=== PATIENT | male | born 1975 | race Caucasian/White ===

== ENCOUNTER 2019-04-15 21:11 | Emergency (ER) | payer MEDICARE, MEDICAID, SELFPAY ==
[2019-04-15 21:13] VITALS: BP 144/95; PULSE 76; RESP 16; TEMP 36.3; O2SAT 98
--- NOTE | 2019-04-15 21:30 | ED.GENADUL_ITS ---
Discharge Plan Disposition Patient Disposition: HOME Condition: Fair Discharge Details Chief Complaint: EyeProblem Clinical Impression: Visual loss, right eye Primary Care Provider: Michaela Herring ED Provider: Scot Will Home Meds and New Rx's Prescriptions: No Action No Known Home Meds RF: 0 Discharge Instructions Additional Instructions: You have an appointment at [facility] tomorrow afternoon at 1:30 with ophthalmology. The clinic is in the [facility] in [place]. It is in the area designated for . If you cannot keep this appointment please call them at to reschedule. Return to ED for any new neurologic changes, eye pain, other concerns or problems. Referrals: [facility] [Provider Group] Medical Decision Making Patient presenting with right vision change. He does appear to have vision loss laterally and inferiorly. Left eye is completely normal. Pupils are equal r ound and reactive bilaterally. Ophthalmoscope exam of the left retina is normal. Right retina has upper portion very abnormal with the medial aspect being completely black and the lateral aspect being moran. The inferior retina appears normal. Suspect retinal detachment. Call placed to ophthalmology at [facility] to discuss. Probably does not need emergent referral but will need urgent referral as outpatient. Patient discussed with ophthalmology at [facility], Dr. Parkinson. Patient referred to the ophthalmology clinic for appointment at 1:30 in the afternoon tomorrow. Discussed this with patient and significant other. They will try to make arrangements to get there. I have have instructed them to call the clinic in the morning if they are unable to get there to reschedule. Return to ED for any new neurologic changes, eye pain, further visual disturbance. HPI General Mode of arrival: ambulatory . Date/Time Provider Initiated Documentation: 04/15/19 21:29 . Limitations to Documentation: no limitations . Information obtained by: patient . HPI Narrative: Patient presents to ED with complaint of loss of vision in the right eye for 1 to 2 weeks. He cannot pinpoint an exact time as to what happened. He has no pain in the eye. He denies any trauma to the eye. He denies any issues with the left eye. He denies any headache or other neurologic symptoms. He does wear glasses but did not bring them with him tonight. He is unclear as to why he waited for a length of time he did before presentation. Related Data Home Medications Medication Instructions Recorded Confirmed Unknown [No Known Home Meds] 04/15/19 04/15/19 Allergies Allergy/AdvReac Type Severity Reaction Status Date / Time Penicillins Allergy unkown Unverified 04/15/19 21:18 General Stated Complaint: EyeProblem FARIBA: 4 Review of Systems Constitutional Denies headache(s) Eyes Reports change in vision, Reports loss of vision, Denies eye pain and Denies photophobia ENT Denies headache(s) Gastrointestinal Denies nausea and Denies vomiting Musculoskeletal Denies abnormal gait Neurologic Denies abnormal movements, Denies abnormal speech, Denies abnormal gait, Denies headache(s), Denies focal weakness, Reports loss of vision and Denies sensory deficit [facility] Social History Smoking/Tobacco Use Status: Current every day Tobacco Type: cigarettes Alcohol Intake: current Alcohol Intake frequency: a few times a month Drug use: Occasionally Substance use type: marijuana Do you feel safe at home: Yes Do you feel safe in your relationship?: Yes Exam Const General: cooperative, comfortable and no acute distress Orientation: alert and oriented x3 HENOH Head: normocephalic and atraumatic Face and sinus: normal facial exam Eyes Visual [place]: abnormal by confrontation peripheral vision loss, lower outer visual field cut right and lower inner visual field cut right Periorbital: periorbital findings normal Eyelids: eyelids normal Conjunctivae: conjunctivae normal Sclera: sclerae normal Pupils: PERRL EOM: EOM intact bilaterally Direct ophthalmoscopy: retinal abnormality (upper retina is moran laterally; black medially; normal lower retina) on the right Neuro General: alert, oriented x3, gait normal, moves all extremities and no focal motor deficits Speech: speech normal Sensory Exam: no sensory deficits noted Course Vital Signs Temperature 97.3 F L 04/15/19 21:13 Pulse 76 04/15/19 21:13 Respiratory Rate 16 04/15/19 21:13 Blood Pressure 144/95 H 04/15/19 21:13 Pulse Oximetry 98 04/15/19 21:13 Temperature 97.3 F L 04/15/19 21:13 Temperature Source Skin 04/15/19 21:13 Pulse 76 04/15/19 21:13 Respiratory Rate 16 04/15/19 21:13 Respiratory Effort Non-Labored 04/15/19 21:16 Blood Pressure 144/95 H 04/15/19 21:13 Blood Pressure Position Sitting 04/15/19 21:13 Pulse Oximetry 98 04/15/19 21:13 Oxygen Delivery Method Room Air 04/15/19 21:13 Oxygen Flow Rate 0 04/15/19 21:13 Pain Level 8 04/15/19 21:13
[2019-04-15 22:36] VITALS: BP 144/95; PULSE 76; RESP 16; TEMP 36.3; O2SAT 98
== END 2019-04-15 22:35 | disposition home or self-care (01) ==
PROVIDERS: Emergency Provider Emergency Medicine; PCP Nurse Practitioner Family
DX: H54.61 Unqualified visual loss, right eye, normal vision left eye (principal)
CPT/HCPCS: 99282

== ENCOUNTER 2020-05-06 13:14 | Emergency (ER) | payer MEDICARE, MEDICAID, SELFPAY ==
[2020-05-06 13:23] VITALS: BP 144/103; PULSE 98; RESP 20; TEMP 36.9; O2SAT 99
--- NOTE | 2020-05-06 13:46 | ED.GENADUL_ITS ---
Discharge Plan Disposition Patient Disposition: HOME Condition: Stable Discharge Details Chief Complaint: Orthopedic Clinical Impression: Finger sprain, Cat bite Primary Care Provider: Michaela Herring ED Provider: Yan Ardon Home Meds and New Rx's Prescriptions: New doxycycline hyclate 100 mg capsule 100 mg PO BID 10 Days Qty: 20 RF: 0 Discharge Instructions Instructions: Animal Bite (ED), Finger Sprain (ED) Additional Instructions: Wear tanesha taping and use splint as needed, advance activity as tolerated. Rest, elevate, cool compresses every 2 hours for 20 minutes. [id number] Tylenol and/or Motrin as directed for discomfort. Doxycycline as directed. Wa rm compresses to your knee every 2 hours for 20 minutes. Please watch for new or worsening symptoms and return to the ER for any concerns. I have given you a referral to orthopedics, I recommend contacting their office later today or tomorrow for prompt outpatient reevaluation. Referrals: Skyler Lopez MD [ [facility] STAFF PHYSICIAN] - Discharge Data Discharge Date/Time-TO BE ENTERED AT DEPARTURE: 05/06/20 15:27 Medical Decision Making 44-year-old gentleman presents for right hand pain status post fall and a potential wound infection from his left knee. Will obtain x-ray of the right hand to rule any bony involvement. There does not appear to be any obvious signs of infection, deformity, tenosynovitis, etc. Also reports potential infection to his left knee. Initially tells me that he believes it was from a cat bite but injury could be secondary to a scratch or even from the fall. Proper animal bite forms were filled out. The wound appears to have mild localized cellulitis. He has a penicillin allergy, will initiate doxycycline therapy. X-ray of right hand read by me and confirmed by radiology as negative. Discussed x-ray findings with patient. Fourth and fifth fingers were tanesha taped and a volar AlumaFoam splint applied. Patient was also given referral to orthopedics for outpatient reevaluation. He will call them tomorrow. Patient has no additional questions or concerns. Of note, patient's triage note stated swelling to the left calf however he denies this to me. Calf is unremarkable. Without erythema, swelling, tenderness. Negative Homans sign. HPI General Mode of arrival: ambulatory . Date/Time Provider Initiated Documentation: 05/06/20 13:30 . Limitations to Documentation: no limitations . Information obtained by: patient . HPI Narrative: This is a 44-year-old gentleman who denies significant past medical history. He reports that 1 week ago he tripped over a cat and injured his right hand. He is right-hand dominant. Pain is mild at rest, worse with movement. Denies any other injury, striking his head, numbness, tingling, weakness. He also reports that his girlfriend's cat, who is staying at his apartment, bit his left knee roughly 1 week ago. The area is slightly red and tender now. He reports that the calves are healthy but he is unsure of their immunizations record. He does not believe that his tetanus is up-to-date. He denies fever, spreading redness. Related Data Home Medications Medication Instructions Recorded Confirmed doxycycline hyclate 100 mg PO BID 10 Days #20 cap 05/06/20 Previous Rx's Medication Instructions Recorded doxycycline hyclate 100 mg PO BID 10 Days #20 cap 05/06/20 Allergies Allergy/AdvReac Type Severity Reaction Status Date / Time Penicillins Allergy unkown Unverified 05/06/20 13:29 General Stated Complaint: Orthopedic FARIBA: 3 Review of Systems Constitutional Constitutional: Denies fever(s) Cardiovascular Cardiovascular: Denies chest pain and Denies dyspnea Respiratory Respiratory: Denies cough and Denies dyspnea Musculoskeletal Musculoskeletal: Denies numbness and Denies tingling Integumentary/Breasts Skin/Breast: Reports erythema Neurologic Neurologic: Denies numbness and Denies tingling [facility] Social History Smoking/Tobacco Use Status: Current every day Tobacco Type: cigarettes Alcohol Intake: current Alcohol Intake frequency: a few times a month Drug use: Daily Substance use type: marijuana Do you feel safe at home: Yes Do you feel safe in your relationship?: Yes Exam Const General: cooperative, healthy appearing, comfortable and no acute distress Orientation: alert, awake and oriented x3 HENMT Head: normal to inspection, normocephalic and atraumatic Mouth: moist mucous membranes Eyes Conjunctivae: conjunctivae normal Sclera: sclerae normal Neck Neck: normal visual inspection, full ROM, trachea midline and supple Resp Effort & Inspection: normal respiratory effort and able to speak in complete sentences Cardio Rate: regular rate Rhythm: regular rhythm Skin Lesions: no lesions Neuro General: patient alert, patient awake, moves all extremities and no focal motor deficits Gait: normal gait Motor: muscle tone normal throughout and strength 5/5 throughout Sensory Exam: no sensory deficits noted Extrem Hand/finger images: 1. Mild swelling, ecchymosis, and tenderness. Patient prefers to keep his finger in flexion, he is able to almost extend fully but appears to be slightly limited secondary to discomfort. Normal capillary refill. There is no erythema or warmth. No deformity. Knee images: 1. Abrasions, healing wound. No laceration or obvious puncture wound. There is mild localized erythema, warmth, mild discomfort. No induration, fluctuance, drainage or pointing abscess. Neuro, vascular, tendon intact Psych Appearance: grossly normal Mental Status: mental status grossly normal Course Vital Signs Vital signs: Vital Signs Temperature 36.9 C 05/06/20 13:23 Pulse 98 H 05/06/20 13:23 Respiratory Rate 05/06/20 13:23 Blood Pressure 144/103 H 05/06/20 13:23 Pulse Oximetry 99 05/06/20 13:23 Temperature 36.9 C 05/06/20 13:23 Temperature Source Temporal Artery Scan 05/06/20 13:23 Pulse 98 H 05/06/20 13:23 Respiratory Rate 20 05/06/20 13:23 Respiratory Effort Non-Labored 05/06/20 13:28 Blood Pressure 144/103 H 05/06/20 13:23 Blood Pressure Position Sitting 05/06/20 13:23 Pulse Oximetry 99 05/06/20 13:23 Oxygen Delivery Method Room Air 05/06/20 13:23 Oxygen Flow Rate 0 05/06/20 13:23
--- NOTE | 2020-05-06 14:02 | DI.RAD_ITS ---
EXAM: XR HAND RT COMPLETE CLINICAL HISTORY: fall/pain. TECHNIQUE: 2D digital imaging was performed. COMPARISON: No exams were available for comparison FINDINGS: BONES: No acute fracture is present. No bony destructive lesion is seen. JOINTS: No dislocation present. SOFT TISSUE: Normal. IMPRESSION: Unremarkable radiographs of the right hand. DATA REPOSITORY: RADIATION DOSE DELIVERED:
--- NOTE | 2020-05-07 09:36 | NUR.NOTE ---
Nursing Note: Spoke with [facility] Officer, Arvin Hunt. He is aware of the report. The Animal Bite Report form was faxed to [facility], his place of work. Briseida Singh
== END 2020-05-06 15:27 | disposition home or self-care (01) ==
PROVIDERS: Emergency Provider Physician Assistant; PCP Nurse Practitioner Family
DX: S63.616A Unspecified sprain of right little finger, initial encounter (principal); W01.0XXA Fall on same level from slipping, tripping and stumbling without subsequent striking against object, initial encounter; S80.212A Abrasion, left knee, initial encounter; W55.01XA Bitten by cat, initial encounter
CPT/HCPCS: 29130; 90471; 99284; 73130

== ENCOUNTER 2020-11-16 08:24 | Outpatient (REF) | payer MEDICARE, MEDICAID, SELFPAY ==
[2020-11-16 16:14] LABS: ALT 64 U/L (16-63); AST 31 U/L (15-37); Albumin 3.8 g/dL (3.4-5.0); Alkaline Phosphatase 80 U/L (46-116); Anion Gap 9.2 mmol/L (3-11); BUN 16 mg/dL (7-18); Bilirubin, Total 0.3 mg/dL (0.2-1.0); CO2 26.8 mmol/L (21.0-32.0); CREATININE 0.9 mg/dL (0.70-1.30); Calcium 9.3 mg/dL (8.5-10.1); Calculated LDL 153 mg/dL (<100); Chloride 105 mmol/L (98-107); Cholesterol 230 mg/dL (<200); Glucose 117 mg/dL (74-106); HDL Cholesterol 39 mg/dL (40-60); Potassium 4.5 mmol/L (3.5-5.1); Sodium 141 mmol/L (136-145); Total Protein 7.1 g/dL (6.4-8.2); Triglyceride 190 mg/dL (<150)
== END 2020-11-16 08:25 | disposition home or self-care (01) ==
LOC: NCHCN 08:24
PROVIDERS: PCP Nurse Practitioner Family; Visit Provider Nurse Practitioner Family
DX: E78.89 Other lipoprotein metabolism disorders (principal); R79.89 Other specified abnormal findings of blood chemistry
CPT/HCPCS: 80053; 80061

== ENCOUNTER 2021-07-26 12:42 | Outpatient (REF) | payer MEDICARE, MEDICAID, SELFPAY ==
[2021-07-29 11:10] LABS: COVID-19 RT-PCR UVMMC Result Negative (Negative)
== END 2021-07-26 12:43 | disposition home or self-care (01) ==
LOC: LBN 12:42
PROVIDERS: PCP Nurse Practitioner Family; Visit Provider Physician Assistant Medical
DX: Z20.822 Contact with and (suspected) exposure to COVID-19 (principal)
CPT/HCPCS: U0003

== ENCOUNTER 2022-09-16 15:26 | Observation (INO) | payer MEDICARE, MEDICAID, SELFPAY ==
[2022-09-16] VITALS (8 sets, daily range): BP systolic 124–146; BP diastolic 59–88; PULSE 79–91; RESP 14–19; TEMP 37.1; O2SAT 95–98
--- NOTE | 2022-09-16 15:45 | DI.CT_ITS ---
Exam(s) CT ABDOMEN PELVIS W EXAM: CT ABDOMEN PELVIS W CLINICAL HISTORY: RLQ pain TECHNIQUE: Imaging Protocol: Axial computed tomography images with coronal and sagittal reformatted images were created and reviewed CONTRAST MATERIAL: Intravenous: Omnipaque 350 Contrast volume:100 mL Oral: No COMPARISON: No exams were available for comparison FINDINGS: The examination is limited due to patient motion artifact. ABDOMEN: Lung Bases: Normal where visualized. Liver: The dome of the liver was not included on this examination. No measurable mass. Portal, Superior Mesenteric, and Splenic Veins: Unremarkable. Gallbladder and Biliary Tract: No radiodense calculus or dilation. Pancreas: Normal density, no abnormal calcifications or inflammatory process. Spleen: Normal. Adrenals: No masses seen. Kidneys: Normal size, contour and axis. No radiodense stones or obstructive uropathy. No masses seen. Abdominal Aorta: Abdominal portion non-dilated. Atherosclerosis is present. Bowel: No obstruction or bowel wall thickening. There diverticula in the colon but no evidence of acu te diverticulitis. Delete the appendix is difficult to distinguish due to the multiple small bowel l oops in the right lower quadrant. No inflammatory process is seen in the right lower quadrant to sug gest an acute process. Peritoneal Cavity: No ascites, collection or mesenteric inflammatory response. No free air. Lymph Nodes: Within normal limits. Bones: Within normal limits for the patient's age. Soft Tissues: Unremarkable. PELVIS: Bladder: Symmetric distention, no gross wall thickening. Reproductive Organs: Unremarkable as visualized. Lymph Nodes: Within normal limits. Bones: Within normal limits for the patient's age. IMPRESSION: 1. No acute abdominal or pelvic process. 2. The appendix is difficult to differentiate in the right lower quadrant secondary to the multiple s mall bowel loops in the region. No inflammatory changes are seen in the right lower quadrant at this time. If there is continued concern for acute appendicitis, please correlate with patient's clinica l symptoms and a repeat examination may be obtained. RADIATION DOSE DELIVERED: 1,468.23mGy.cm Total DLP DATA REPOSITORY: All CT scans at this facility are submitted to the National Radiology Data Registry (NRDR) Dose Index Registry (DIR) with the [employer] (ACR). RADIATION OPTIMIZATION: All CT scans at this facility use at least one of these dose optimization te chniques: automated exposure control; mA and/or kV adjustment per patient size (includes targeted exa ms where dose is matched to clinical indication); or iterative reconstruction.
--- NOTE | 2022-09-16 15:45 | RT.EKG_ITS ---
APPROVED REPORT Exam: Resting ECG Reason for Exam: chest pain Patient Location: E HR:76 bpm ECG Measurements Heart Rate 76 AXIS OH 161 P 57 QRSd 104 QRS -60 QT 386 T 37 QTc 435 Conclusion Sinus rhythm...normal P axis, V-rate 60- 99 Inferior infarct, old...Q >35mS, II III aVF sinus rhythm left axis, partial RBBB
[2022-09-16 16:27] LABS: Lactate 1.4 mmol/L (0.6-1.4)
[2022-09-16] MEDS: Normal Saline 1,000 ML 1000 ML IV (16:27)
[2022-09-16] MEDS: Ketorolac 15 MG/ML VIAL IVP (16:31)
--- NOTE | 2022-09-16 16:32 | ED.GENADUL_ITS ---
Discharge Plan Disposition Patient Disposition: Admit to [facility] Condition: Serious Discharge Details Clinical Impression: ACS (acute coronary syndrome), Elevated lipase, Appendicitis Admit Date/Time: 09/16/22 23:08 Admit Provider: Roel Dumont Attending Provider: Roel Dumont Primary Care Provider: Michaela Herring ED Provider: Willis Singh Discharge Data Discharge Date/Time-TO BE ENTERED AT DEPARTURE: 09/17/22 00:15 Medical Decision Making Patient presenting to the emergency department for chief complaint of abdominal pain. Patient states that this started 2 days ago. He has had some constipation he does state some chest pain that was intermittent and more prominent 2 days ago but denies any chest pain at this time, no shortness of breath, no fever, mild headache otherwise denies all other findings. Physical exam does show tenderness to the right lower quadrant and hypoactive bowel sounds otherwise unremarkable exam, no cardiac or respiratory findings. We will plan on checking labs and CT imaging pending results we will give small amount of IV fluids and ketorolac. 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 We will continue to monitor patient condition. Review of labs show a significant leukocytosis with white count of 14.3 and elevated neutrophils and monocytes. CMP unremarkable except for slightly elevated AST of 104. Initial troponin is 7967. Lipase is also elevated at 1974. Reassessed patient pending CT imaging findings and patient denies any chest pain. Will give patient aspirin and continue to monitor along with repeat troponin and EKG at 3-hour chriss. Reviewed CT imaging and spoke with radiologist along with review of their rib interpretation and they are stating questionable early appendicitis with mild thickening. Radiologist did state this is a very subtle finding and recommended consultation with surgery. Spoke with general surgery who agreed with recommendation of IV ceftriaxone and Flagyl. She was going to further review the CT imaging. Did discussed with patient possible cross reaction to penicillin and patient states that he was told as a child he had a penicillin allergy but denies any known reaction. We will monitor patient while receiving ceftriaxone. Spoke to Dr. Lacy general surgeon on-call who after review of CT imaging stated that appendicitis was not operable at this point. Repeat troponin was further elevated at 8176. Repeat EKG is fairly unchanged with continued inferior Q waves and question of right bundle branch block. Did consult with cardiology at [facility] and spoke with Dr. Coto. After further discussion of case and reinterviewing patient he did feel that patient needed catheterization and echo. Recommended treating this as acute ischemic coronary syndrome and starting patient on heparin. Stated no Plavix at this time. Was informed that bed availability should be tomorrow and accepting physician is Dr. Heller. Discussed with patient risk versus benefit of heparin and patient was agreeable to be started on heparin. PT PTT and INR were ordered. Cardiology did recommend serial troponins and EKGs along with echo tomorrow morning if available to be done here prior to going to [facility] otherwise they could arrange when there depending on availability. Did further discuss patient's symptoms with him and he stated that 2 days ago he had significant chest pain that woke him up from sleep. He stated that he was unable to sleep over the past 48 hours and did have some of the abdominal pain he initially complaint with today that brought him into the emergency department but that is been going on for less than 24 hours. Given subtle findings on CT of abdomen I have a lower suspicion of acute emergent appendicitis and a more concerned about the cardiac findings and patient's chest pain. Patient is a daily smoker with very poor follow-up and normal examinations by primary care. Patient is also a poor historian making obtaining full story difficult. Prior to contacting hospitalist I did rediscuss surgical findings with surgeon and she stated that findings are extremely subtle and he is not a surgical case and typically with findings would be discharged on outpatient antibiotics and have follow-up on outpatient basis for reassessment of abdomen. After respeaking with patient I do agree that abdomen does not appear to be surgically emergent and can have typical follow-up with continued antibiotics which surgeon stated p.o. Bactrim would be okay. Imaging Data Radiologic Study: Imaging: CT Scan Radiologist's impression: Exam(s) Addendum created by Williams Banks MD on 09/16/2022 5:35:14 PM EST: Comment: This report contains findings that may be critical to patient care. The exam findings were verbally communicated by me to nurse practitioner Willis Singh via telephone conference at 5:33 PM EST on 09/16/2022. The findings were acknowledged and understood. Discussion regarding what might be an early acute appendicitis. The appendix is somewhat difficult to identify related to adjacent narrow lumen small bowel loops. Patient clinically has an elevated lipase but no CT features of pancreatitis. Initial report created on 09/16/2022 5:20:52 PM EST: PROCEDURE INFORMATION: Exam: CT Abdomen And Pelvis With Contrast Exam date and time: 09/16/2022 4:50 PM Age: 46 years old Clinical indication: Abdominal pain; Localized; Right lower quadrant (rlq); Patient HX: Rlq pain TECHNIQUE: Imaging protocol: Computed tomography of the abdomen and pelvis with contrast. COMPARISON: No relevant prior studies available. FINDINGS: Lungs: Lung bases are clear. Pleural spaces: No pleural effusion. Heart: Normal heart size. No pericardial effusion. No coronary artery atherosclerotic calcium is visible. Liver: The liver is normal in size, contour and attenuation. Gallbladder and bile ducts: The gallbladder is normal in size and shape. No stones or inflammatory changes. Pancreas: The pancreas is normal in contour and attenuation. Spleen: The spleen is normal in size, contour and attenuation. Adrenal glands: The adrenal glands are normal in size and contour bilaterally. Kidneys and ureters: Normal. No hydronephrosis. Stomach and bowel: Gastric morphology is unremarkable. No edema. No gastric outlet obstruction.small hiatal hernia. No acute features. Small bowel loops are normal in course and caliber. There is no mucosal edema or bowel wall thickening. No obstructive features. The colon contains formed fecal material. There is no bowel wall thickening. No inflammatory features. No obstruction. Mild diverticulosis. No acute diverticulitis. Appendix: The appendix is identified and gasless. There is no appendiceal calculus. Appendix is mildly thickened at 10 mm. There is no significant adjacent inflammatory change. See sagittal series 7, image 103. The appendix is somewhat difficult to discern from adjacent small bowel loops. I am concerned that there is mild inflammation suggesting an early appendicitis. Intraperitoneal space: No free fluid. No free air. Vasculature: Unremarkable. No abdominal aortic aneurysm. Lymph nodes: Unremarkable. No enlarged lymph nodes. Urinary bladder: Urinary bladder is unremarkable in appearance. No wall thickening. No intravesicular calculi. No intravesicular gas. Reproductive: Unremarkable as visualized. Bones/joints: Degenerative thoracolumbar spine changes. No acute features. Soft tissues: Unremarkable. IMPRESSION: 1. Gasless appendix is identified with mild thickening. This is concerning for an acute early appendicitis. No evidence of perforation. Please correlate clinically with other signs and symptoms of appendicitis. 2. Colonic diverticulosis without diverticulitis. 3. Small hiatal hernia. No acute features. Radiologic Study #2: Attestation: I personally reviewed and interpreted this imaging study as follows: Imaging: X-Ray Radiologist's impression: PROCEDURE INFORMATION: Exam: XR Chest Exam date and time: 09/16/2022 10:05 PM Age: 46 years old Clinical indication: Other: Chest pain TECHNIQUE: Imaging protocol: Radiologic exam of the chest. Views: 1 view. COMPARISON: CT ABDOMEN PELVIS W 09/16/2022 4:50 PM FINDINGS: Lungs: Unremarkable. No consolidation. Pleural spaces: Unremarkable. No pleural effusion. No pneumothorax. Heart/Mediastinum: Unremarkable. No cardiomegaly. Bones/joints: Unremarkable. IMPRESSION: No acute findings. Lab Data Lab results reviewed: Yes I reviewed the patient's lab results. HPI General Mode of arrival: ambulatory . Date/Time Provider Initiated Documentation: 09/16/22 15:44 . Limitations to Documentation: no limitations . Information obtained by: patient and RN notes reviewed . History of Present Illness 46 year old M presents to the emergency department with the chief complaint of Abdominal pain, described as moderate, with intensity rated at 8. Quality is described as sharp, and is localized to the abdomen. Patient reports no radiation. Patient started experiencing this day(s) (2) and it has been constant. No relieving factors improve symptom(s), No exacerbating factors reported . Patient notes no other symptoms.. Patient did receive the following treatments prior to arrival, none Related Data Home Medications Medication Instructions Recorded Confirmed Unknown [No Known Home Meds] 09/16/22 09/16/22 Allergies Allergy/AdvReac Type Severity Reaction Status Date / Time Penicillins Allergy unkown Unverified 09/16/22 15:35 General Stated Complaint: Abd Prob FARIBA: 3 Review of Systems Constitutional Constitutional: Denies chills, Denies fever(s), Reports headache(s) and Denies poor appetite ENT Ears, Nose, Mouth, and Throat: Reports headache(s) Cardiovascular Cardiovascular: Reports chest pain and Denies dyspnea Respiratory Respiratory: Denies cough and Denies dyspnea Gastrointestinal Gastrointestinal: Reports as per HPI, Reports abdominal pain, Denies melena, Denies change in bowel habits, Reports constipation, Denies diarrhea, Reports nausea and Denies vomiting Genitourinary Genitourinary: Denies hematuria, Denies difficulty urinating, Denies dysuria and Reports flank pain Musculoskeletal Musculoskeletal: Denies back pain Integumentary/Breasts Skin/Breast: Denies rash Neurologic Neurologic: Reports headache(s) PFSH All Active Problems ACS (acute coronary syndrome) (Acute) Elevated lipase (Acute) Appendicitis (Acute) Medical History TBI (traumatic brain injury) Social History Smoking/Tobacco Use Status: Current every day Tobacco Type: cigarettes Smoking risk assessment performed?: Yes Alcohol Intake: current Alcohol Intake frequency: a few times a month Drug use: Daily Substance use type: marijuana Do you feel safe at home: Yes Do you feel safe in your relationship?: Yes Exam Const General: cooperative Orientation: alert, awake and oriented x3 Resp Effort & Inspection: normal respiratory effort and able to speak in complete sentences Auscultation: clear to auscultation bilaterally Cardio Rate: regular rate Rhythm: regular rhythm Heart Sounds: S1 normal and S2 normal GI Inspection: obesity Palpation: soft, not firm, no guarding, no masses, no pulsatile masses, not rigid, no splenomegaly and tender in the RLQ and at McBurney's point; psoas sign negative Auscultation: hypoactive bowel sounds Back/Spine/Pelvis Back: no CVA tenderness Neuro General: patient alert, patient awake, patient oriented x3, gait normal and moves all extremities Course Vital Signs Vital signs: Vital Signs Temperature 37.1 C 09/16/22 15:29 Pulse 87 09/16/22 15:29 Respiratory Rate 18 09/16/22 15:29 Blood Pressure 129/88 09/16/22 15:29 Pulse Oximetry 95 09/16/22 15:29 Temperature 37.1 C 09/16/22 15:29 Temperature Source Temporal Artery Scan 09/16/22 15:29 Pulse 87 09/16/22 15:29 Respiratory Rate 18 09/16/22 15:29 Respiratory Effort Non-Labored 09/16/22 15:36 Blood Pressure 129/88 09/16/22 15:29 Blood Pressure Position Sitting 09/16/22 15:29 Pulse Oximetry 95 01/15/23 15:29 Oxygen Delivery Method Room Air 09/16/22 15:29 Oxygen Flow Rate 0 09/16/22 15:29 Pain Level 10 09/16/22 15:29 Lab/Test Results Lab/Test Results: Laboratory Tests Range/Units 09/16/22 16:20 VBG Lactate (0.6-1.4) mmol/L 1.4
[2022-09-16 16:47] LABS: Abs Immature Grans 0.09 10^3/uL (0.0-0.06); Basophils % 0.1; Eosinophils % 0.1; HCT 48.8 % (40.0-50.0); HGB 16.3 g/dL (13.5-17.5); Immature Grans % 0.6; Lymphocytes % 17.2; MCHC 33.4 % (32.0-36.0); MCV 93 fL (80-95); MPV 9.9 fL (8.0-11.0); Monocytes % 11.4; Neutrophils % 70.6; Platelet Count 194 10^3/uL (130-400); RBC 5.26 10^6/uL (4.36-5.78); RDW 12.8 % (11.8-14.1); RDW-SD 43.9 fL; WBC 14.03 10^3/uL (4.4-10.8)
[2022-09-16 16:47] LABS: ALT 56 U/L (16-63); AST 104 U/L (15-37); Albumin 3.8 g/dL (3.4-5.0); Alkaline Phosphatase 73 U/L (46-116); BUN 13 mg/dL (7-18); Bilirubin, Total 0.7 mg/dL (0.2-1.0); Calcium 9.3 mg/dL (8.5-10.1); Chloride 100 mmol/L (98-107); Estimated GFR 92.84 (mL/min/1.73m2); Glucose 106 mg/dL (74-106); Potassium 4.1 mmol/L (3.5-5.1); Sodium 136 mmol/L (136-145); Total Protein 7.7 g/dL (6.4-8.2)
[2022-09-16 16:49] LABS: Absolute Basophil Count 0.01 10^3/uL (0.0-0.2); Absolute Eosinophil Count 0.01 10^3/uL (0.0-0.7); Absolute Lymphocyte Count 2.41 10^3/uL (1.2-3.4); Absolute Neutrophil Count 9.91 10^3/uL (1.2-6.7)
[2022-09-16 16:50] LABS: Troponin I 7967 ng/L (<or=60)
[2022-09-16] MEDS: Omnipaque 350 MG/ML 100 ML BTL IJ (16:53)
[2022-09-16 17:02] LABS: Lipase 1974 U/L (73-393)
[2022-09-16 17:10] LABS: Diff Comment Agrees w/ Instrument
--- NOTE | 2022-09-16 17:21 | DI.VRAD_ITS ---
Addendum created by Williams Banks MD on 09/16/2022 5:35:14 PM EST: Comment: This report contains findings that may be critical to patient care. The exam findings were verbally communicated by me to nurse practitioner Willis Singh via telephone conference at 5:33 PM EST on 09/16/2022. The findings were acknowledged and understood. Discussion regarding what might be an early acute appendicitis. The appendix is somewhat difficult to identify related to adjacent narrow lumen small bowel loops. Patient clinically has an elevated lipase but no CT features of pancreatitis. Initial report created on 09/16/2022 5:20:52 PM EST: PROCEDURE INFORMATION: Exam: CT Abdomen And Pelvis With Contrast Exam date and time: 09/16/2022 4:50 PM Age: 46 years old Clinical indication: Abdominal pain; Localized; Right lower quadrant (rlq); Patient HX: Rlq pain TECHNIQUE: Imaging protocol: Computed tomography of the abdomen and pelvis with contrast. COMPARISON: No relevant prior studies available. FINDINGS: Lungs: Lung bases are clear. Pleural spaces: No pleural effusion. Heart: Normal heart size. No pericardial effusion. No coronary artery atherosclerotic calcium is visible. Liver: The liver is normal in size, contour and attenuation. Gallbladder and bile ducts: The gallbladder is normal in size and shape. No stones or inflammatory changes. Pancreas: The pancreas is normal in contour and attenuation. Spleen: The spleen is normal in size, contour and attenuation. Adrenal glands: The adrenal glands are normal in size and contour bilaterally. Kidneys and ureters: Normal. No hydronephrosis. Stomach and bowel: Gastric morphology is unremarkable. No edema. No gastric outlet obstruction.small hiatal hernia. No acute features. Small bowel loops are normal in course and caliber. There is no mucosal edema or bowel wall thickening. No obstructive features. The colon contains formed fecal material. There is no bowel wall thickening. No inflammatory features. No obstruction. Mild diverticulosis. No acute diverticulitis. Appendix: The appendix is identified and gasless. There is no appendiceal calculus. Appendix is mildly thickened at 10 mm. There is no significant adjacent inflammatory change. See sagittal series 7, image 103. The appendix is somewhat difficult to discern from adjacent small bowel loops. I am concerned that there is mild inflammation suggesting an early appendicitis. Intraperitoneal space: No free fluid. No free air. Vasculature: Unremarkable. No abdominal aortic aneurysm. Lymph nodes: Unremarkable. No enlarged lymph nodes. Urinary bladder: Urinary bladder is unremarkable in appearance. No wall thickening. No intravesicular calculi. No intravesicular gas. Reproductive: Unremarkable as visualized. Bones/joints: Degenerative thoracolumbar spine changes. No acute features. Soft tissues: Unremarkable. IMPRESSION: 1. Gasless appendix is identified with mild thickening. This is concerning for an acute early appendicitis. No evidence of perforation. Please correlate clinically with other signs and symptoms of appendicitis. 2. Colonic diverticulosis without diverticulitis. 3. Small hiatal hernia. No acute features. Dictated and Authenticated by: Williams Banks MD. Ordering:KENDY Pedro MD
[2022-09-16 17:34] LABS: Bilirubin Negative (Negative); Blood Trace-intact (Negative); Clarity Clear (Clear); Glucose Negative (Negative); Ketones Negative (Negative); Leukocyte Esterase Negative (Negative); Nitrite Negative (Negative); Specific Gravity 1.015 (1.005-1.025); Urobilinogen 0.2 EU/dL (Up TO 0.2); pH 5.5 (5-8)
[2022-09-16 17:40] LABS: Source Nasal/Nares
[2022-09-16 17:55] LABS: Bacteria Rare HPF (Negative); C & S Indicated? No; Casts 3-5 Hyaline LPF (Negative); Crystals Few Amorphous HPF (Negative); Epithelial Cells Rare HPF (Negative); Mucus Heavy (Negative); WBC Negative HPF (0-5)
[2022-09-16] MEDS: Aspirin 81 MG CHEW 324 MG CH (17:59)
[2022-09-16 18:12] LABS: COVID-19 PCR Negative (Negative)
[2022-09-16] MEDS: cefTRIAXone 1 GM/50 ML BAG IVPB (18:15)
[2022-09-16] MEDS: metroNIDAZOLE 500 MG/100 ML BAG 100 MG IVPB (18:42)
--- NOTE | 2022-09-16 19:00 | RT.EKG_ITS ---
APPROVED REPORT Exam: Resting ECG Reason for Exam: Elevated troponin Patient Location: E HR:78 bpm ECG Measurements Heart Rate 78 AXIS NC 161 P 75 QRSd 98 QRS -64 QT 394 T 23 QTc 450 Conclusion Sinus rhythm...normal P axis, V-rate 60- 99 Inferior infarct, old...Q >35mS, II III aVF sinus rhtyhm, left axis, partial RBBB, non ischemic
[2022-09-16 19:44] LABS: Troponin I 8176 ng/L (<or=60)
[2022-09-16 21:17] LABS: Prothrombin Time 10.3 sec (9.3-11.0)
--- NOTE | 2022-09-16 22:00 | DI.RAD_ITS ---
Exam(s) XR PORTABLE CHEST AP EXAM: XR PORTABLE CHEST AP CLINICAL HISTORY: chest pain TECHNIQUE: 2D digital imaging was performed of the chest. One image was obtained. An AP view was ob tained. COMPARISON: CR CHEST 2 VIEWS PA,LAT from 12/16/2008 FINDINGS: MEDIASTINUM: Normal. HEART: Normal. PULMONARY VASCULATURE: Normal. LUNGS: Clear. PLEURAL SPACE: No pleural effusion or pneumothorax. BONE:Within normal limits for the patient's age. OTHER FINDINGS:Normal. IMPRESSION: No acute pulmonary findings. DATA REPOSITORY: RADIATION DOSE DELIVERED:
--- NOTE | 2022-09-16 22:35 | DI.VRAD_ITS ---
PROCEDURE INFORMATION: Exam: XR Chest Exam date and time: 09/16/2022 10:05 PM Age: 46 years old Clinical indication: Other: Chest pain TECHNIQUE: Imaging protocol: Radiologic exam of the chest. Views: 1 view. COMPARISON: CT ABDOMEN PELVIS W 09/16/2022 4:50 PM FINDINGS: Lungs: Unremarkable. No consolidation. Pleural spaces: Unremarkable. No pleural effusion. No pneumothorax. Heart/Mediastinum: Unremarkable. No cardiomegaly. Bones/joints: Unremarkable. IMPRESSION: No acute findings. Dictated and Authenticated by: Williams Banks MD. Ordering:KENDY Pedro MD
--- NOTE | 2022-09-16 22:47 | W.PM.HP.N ---
Date of service: 09/16/22 Time of Service: 22:47 Assessment and Plan Assessment and plan (1) ACS (acute coronary syndrome): Status: Acute Assessment and plan: Rather confusing concatenation of problems, but in order: 1. ACS: most likely he had acute IL 2 days ago, manifesting now with continued troponin elevation and inferior Q waves indicate of IMI. Will continue ASA and heparin per Cardiology. I will also add low dose beta patricia, and statin. Plan transfer in AM for cath. 2. Appendicitis: While the CT findings are subtle, the exam is highly suggestive. While the mild leukocytosis could be referable to ACS I think, especially 48 hours out, this is more likely reflective of the appendicitis. Will plan on continuing antibiotics and will formally consult surgery for follow up. 3. Lipase: I have no good explanation for this at present, and both clinically and by CT he does not have pancreatitis. While appendicitis can cause a modest degree of elevation, this would seem beyond that. Conceivably this is his baseline due to some metabolic derangement, but we have no priors for comparison. Note that this is entirely speculative. Regardless will simply track this along. History of Present Illness History of Present Illness Chief Complaint: CP, abdominal pain Narrative: Patient is a 46 year old male with h/o TBI, tobacco use. History is not entirely consistent, but as best we can tell had episode of CP 2 days [employer] WASH[employer], lasting hours to all day, w/o associated SOB, nausea or diaphoresis. He then developed mid abdominal pain on day of admission. Evaluation in ER of note for absence of fever; abdominal exam showing RLQ tenderness at McBurney's point; white count of 14, troponin of 7900, Lipase 1900; EKG showing inferior Q waves c/w old IMI, CT abdomen showing normal pancreas and question of subtle findings suggestive of acute appendicitis. Surgeon was called and advised Rocephin and Flagyl. Troponin 2 was 8176, repeatEKG unchanged. Cardiology at [facility] [place] advisedd to treat this as ACS, with ASA and heparin, and patient accepted for transfer in AM to service of Dr. Heller. Case again reviewed with surgeon who advised this was not an emergent surgical matter and could be treated with ongoing antibiotics. I was asked to evaluate for admission. At present patient states he is not having any abdominal or chest pains, denies SOB. States he drinks alcohol infrequently. Review of Systems Narrative: per HPI PFSH All Active Problems ACS (acute coronary syndrome) (Acute) Elevated lipase (Acute) Appendicitis (Acute) Medical History TBI (traumatic brain injury) Social History Smoking/Tobacco Use Status: Current every day Tobacco Type: cigarettes Smoking risk assessment performed?: Yes Alcohol Intake: current Alcohol Intake frequency: a few times a month Drug use: Daily Substance use type: marijuana Do you feel safe at home: Yes Do you feel safe in your relationship?: Yes Meds Allergies and Home Medications Allergies Allergy/AdvReac Type Severity Reaction Status Date / Time Penicillins Allergy unkown Unverified 09/16/22 15:35 Home Medications Medication Instructions Recorded Confirmed Type Unknown [No Known Home Meds] 09/16/22 09/16/22 History Exam Narrative Exam Narrative: 135/85, 84, 37.1, 16, 97% RA. HEENT atraumatic; neck supple w/o JVD; lungs clear; heart6 distant but RRR; abdomen soft, moderate tenderness RLQ at McBurney's point, w/o rebound; extremities w/o edema; pulses 2+/=; neuro Ox3, lucid, moves all 4s Results Labs Result diagrams: 09/16/22 16:40 09/16/22 16:20 Labs: Laboratory Results - last 24 hr 09/16/22 09/16/22 09/16/22 16:20 16:20 16:40 WBC 14.03 H RBC 5.26 Hgb 16.3 Hct 48.8 MCV 93 MCH 31.0 MCHC 33.4 RDW 12.8 Plt Count 194 MPV 9.9 Immature Gran % 0.6 Neutrophils % 70.6 Lymphocytes % 17.2 Monocytes % 11.4 Eosinophils % 0.1 Basophils % 0.1 Nucleated RBC % 0.0 Absolute Neutrophils 9.91 H Absolute Lymphocytes 2.41 Absolute Monocytes 1.60 H Absolute Eosinophils 0.01 Absolute Basophils 0.01 PT INR APTT VBG Lactate 1.4 Sodium 136 Potassium 4.1 Chloride 100 Carbon Dioxide 29.0 Anion Gap 7.0 BUN 13 Creatinine 1.0 Est GFR (CKD-EPI 2020) 92.84 Glucose 106 Calcium 9.3 Magnesium 2.0 Total Bilirubin 0.7 AST 104 H ALT 56 Alkaline Phosphatase 73 Troponin I 7967 H* Total Protein 7.7 Albumin 3.8 Lipase 1974 H Urine Color Urine Clarity Urine pH Ur Specific [place] Urine Protein Urine Ketones Urine Blood Urine Nitrite Urine Bilirubin Urine Urobilinogen Ur Leukocyte Esterase Urine RBC Urine WBC Ur Epithelial Cells Urine Crystals Urine Bacteria Urine Casts Urine Mucus Ur Culture Indicated? Urine Glucose COVID-19 Source SARS-CoV-2 (PCR) 09/16/22 09/16/22 09/16/22 17:19 17:35 19:15 WBC RBC Hgb Hct MCV MCH MCHC RDW Plt Count MPV Immature Gran % Neutrophils % Lymphocytes % Monocytes % Eosinophils % Basophils % Nucleated RBC % Absolute Neutrophils Absolute Lymphocytes Absolute Monocytes Absolute Eosinophils Absolute Basophils PT INR APTT VBG Lactate Sodium Potassium Chloride Carbon Dioxide Anion Gap BUN Creatinine Est GFR (CKD-EPI 2020) Glucose Calcium Magnesium Total Bilirubin AST ALT Alkaline Phosphatase Troponin I 8176 H* Total Protein Albumin Lipase Urine Color Yellow Urine Clarity Clear Urine pH 5.5 Ur Specific [place] 1.015 Urine Protein Negative Urine Ketones Negative Urine Blood Trace-intact H Urine Nitrite Negative Urine Bilirubin Negative Urine Urobilinogen 0.2 Ur Leukocyte Esterase Negative Urine RBC 3-5 H Urine WBC Negative Ur Epithelial Cells Rare Urine Crystals Few Amorphous Urine Bacteria Rare Urine Casts 3-5 Hyaline Urine Mucus Heavy Ur Culture Indicated? No Urine Glucose Negative COVID-19 Source Nasal/Nares SARS-CoV-2 (PCR) Negative 09/16/22 21:00 WBC RBC Hgb Hct MCV MCH MCHC RDW Plt Count MPV Immature Gran % Neutrophils % Lymphocytes % Monocytes % Eosinophils % Basophils % Nucleated RBC % Absolute Neutrophils Absolute Lymphocytes Absolute Monocytes Absolute Eosinophils Absolute Basophils PT 10.3 INR 1.0 APTT 22.0 VBG Lactate Sodium Potassium Chloride Carbon Dioxide Anion Gap BUN Creatinine Est GFR (CKD-EPI 2020) Glucose Calcium Magnesium Total Bilirubin AST ALT Alkaline Phosphatase Troponin I Total Protein Albumin Lipase Urine Color Urine Clarity Urine pH Ur Specific [place] Urine Protein Urine Ketones Urine Blood Urine Nitrite Urine Bilirubin Urine Urobilinogen Ur Leukocyte Esterase Urine RBC Urine WBC Ur Epithelial Cells Urine Crystals Urine Bacteria Urine Casts Urine Mucus Ur Culture Indicated? Urine Glucose COVID-19 Source SARS-CoV-2 (PCR) Last Vital Signs Temp 37.1 C 09/16/22 15:29 Pulse 84 09/16/22 21:42 Resp 16 09/16/22 21:42 BP 135/85 09/16/22 21:42 Pulse Ox 97 09/16/22 21:42 Time Spent Time spent with Patient: 55-74 minutes Time was spent: preparing to see the patient(eg.review tests), obtaining and/or reviewing separately otained hiistory, ordering medications,tests, procedures, referring, communicating with other health career and transition teacher and indepentently interpreting results
[2022-09-17] VITALS (10 sets, daily range): BP systolic 100–137; BP diastolic 62–82; PULSE 72–97; RESP 12–22; TEMP 36.1–37.4; O2SAT 95–96
[2022-09-17 01:13] LABS: Troponin I 7719 ng/L (<or=60)
[2022-09-17] MEDS: metroNIDAZOLE 500 MG/100 ML BAG 100 MG IVPB ×2 (01:50→08:09)
[2022-09-17] MEDS: Lactated Ringers 1,000 ML 75 ML IV (01:50)
[2022-09-17 03:25] LABS: HCT 43.8 % (40.0-50.0); HGB 15.2 g/dL (13.5-17.5); MCH 31.9 pg (27.0-33.0); MCHC 34.7 % (32.0-36.0); MCV 92 fL (80-95); Platelet Count 167 10^3/uL (130-400); RBC 4.76 10^6/uL (4.36-5.78); RDW-SD 44.3 fL; WBC 11.45 10^3/uL (4.4-10.8)
[2022-09-17 03:34] LABS: Anion Gap 6.3 mmol/L (3-11); BUN 13 mg/dL (7-18); CO2 26.7 mmol/L (21.0-32.0); CREATININE 0.9 mg/dL (0.70-1.30); Calcium 8.6 mg/dL (8.5-10.1); Chloride 103 mmol/L (98-107); Estimated GFR 105.35 (mL/min/1.73m2); Glucose 119 mg/dL (74-106); Lipase 379 U/L (73-393); Potassium 3.6 mmol/L (3.5-5.1); Sodium 136 mmol/L (136-145)
[2022-09-17 03:39] LABS: PTT Activated 30.1 sec (21.0-27.5)
[2022-09-17 03:43] LABS: Troponin I 7513 ng/L (<or=60)
--- NOTE | 2022-09-17 04:41 | NUR.NOTE ---
Nursing Note: Patient complains of discomfort @ left arm IV site. IV infiltrated, Catheter removed intact. Dressing applied. LR was infusing@ 75ml/hour. Arm elevated. Attempt for IV start to replace by 2. Physician notified.
[2022-09-17] MEDS: Heparin 5,000 UNITS/ML VIAL 5000 UNITS (06:10)
[2022-09-17] MEDS: Metoprolol 12.5 MG TAB PO (06:11)
--- NOTE | 2022-09-17 06:15 | RT.EKG_ITS ---
APPROVED REPORT Exam: Resting ECG Reason for Exam: DC Patient Location: I HR:78 bpm ECG Measurements Heart Rate 78 AXIS TN 157 P 47 QRSd 103 QRS -68 QT 394 T 40 QTc 449 Conclusion Sinus rhythm...normal P axis, V-rate 50- 99 Probable inferior infarct, old...Q>35mS, II III aVF
[2022-09-17] MEDS: POTASSIUM CHLORIDE 20 MEQ/100 ML BAG 50 MEQ IVPB (07:28)
[2022-09-17] MEDS: Aspirin 325 MG TAB PO (08:09)
[2022-09-17] MEDS: Metoprolol 25 MG TAB PO (08:09)
--- NOTE | 2022-09-17 08:11 | W.PM.PROGNOT ---
Date of Service Date of service: 09/17/22 Time of Service: 08:17 Assessment and Plan Assessment and plan (1) ACS (acute coronary syndrome): Status: Acute Assessment and plan: Patient appears to have had a completed inferior wall infarct. Echocardiogram is pending at this time. Patient is currently heparinized on aspirin and atorvastatin and metoprolol. He is hemodynamically stable. We are awaiting transfer to [facility] for cardiac catheterization he will remain n.p.o. except for meds. Professional time spent interviewing and examining patient, discussion of goals of care with hospital team (care management, nursing and consulting professionals) was 30 minutes. (2) Appendicitis: Status: Acute Assessment and plan: Physical findings of CT scan are consistent with acute appendicitis. Currently being treated medically with antibiotics including Rocephin and Flagyl. Elevated lipase is likely secondary to the appendicitis. There is no evidence for inflammation of his pancreas on CT scan. (3) Elevated lipase: Status: Acute Subjective Subjective Interval history since last seen: 46-year-old male smoker with a history of TBI presented emergency department with right lower quadrant abdominal pain preceded by 2 days of chest pain. Patient was found to have had a completed inferior wall MO as documented by Q waves in inferior leads II, III and aVF and elevated troponin level of nearly 8000. Patient currently denies any chest pain still has some residual right lower quadrant abdominal pain. She currently on Rocephin and Flagyl antibiotic treatment for his appendicitis. Patient's been accepted for transfer to [facility] to service of Dr. Heller pending bed availability. Overnight patient was started on aspirin and heparin and Lopressor as well as atorvastatin. Repeat ECG this morning shows no acute ischemic ST changes but redemonstrates the inferior Q waves. Rhythm remains in sinus rhythm. He has no dyspnea and no evidence for acute CHF. Echocardiogram is pending at this time. Exam Narrative Exam Narrative: Obese white male sitting up in bed alert oriented person place time circumstance. Neck is obese no overt JVD Lungs are clear to auscultation Heart is regular without appreciable murmur rub Abdomen is obese with hypoactive bowel sounds slightly distended with mild tenderness in right lower quadrant but no rebound tenderness or guarding Extremities without peripheral cyanosis or edema Objective Last Vital Signs Temp 36.1 C L 09/17/22 06:04 Pulse 81 09/17/22 06:04 Resp 20 09/17/22 06:04 BP 131/71 09/17/22 06:04 Pulse Ox 95 09/17/22 06:04 Laboratory Results - last 24 hr 09/16/22 09/16/22 09/16/22 16:20 16:20 16:40 WBC 14.03 H RBC 5.26 Hgb 16.3 Hct 48.8 MCV 93 MCH 31.0 MCHC 33.4 RDW 12.8 Plt Count 194 MPV 9.9 Immature Gran % 0.6 Neutrophils % 70.6 Lymphocytes % 17.2 Monocytes % 11.4 Eosinophils % 0.1 Basophils % 0.1 Nucleated RBC % 0.0 Absolute Neutrophils 9.91 H Absolute Lymphocytes 2.41 Absolute Monocytes 1.60 H Absolute Eosinophils 0.01 Absolute Basophils 0.01 PT INR APTT VBG Lactate 1.4 Sodium 136 Potassium 4.1 Chloride 100 Carbon Dioxide 29.0 Anion Gap 7.0 BUN 13 Creatinine 1.0 Est GFR (CKD-EPI 2020) 92.84 Glucose 106 Calcium 9.3 Magnesium 2.0 Total Bilirubin 0.7 AST 104 H ALT 56 Alkaline Phosphatase 73 Troponin I 7967 H* Total Protein 7.7 Albumin 3.8 Lipase 1974 H Urine Color Urine Clarity Urine pH Ur Specific [place] Urine Protein Urine Ketones Urine Blood Urine Nitrite Urine Bilirubin Urine Urobilinogen Ur Leukocyte Esterase Urine RBC Urine WBC Ur Epithelial Cells Urine Crystals Urine Bacteria Urine Casts Urine Mucus Ur Culture Indicated? Urine Glucose COVID-19 Source SARS-CoV-2 (PCR) 09/16/22 09/16/22 09/16/22 17:19 17:35 19:15 WBC RBC Hgb Hct MCV MCH MCHC RDW Plt Count MPV Immature Gran % Neutrophils % Lymphocytes % Monocytes % Eosinophils % Basophils % Nucleated RBC % Absolute Neutrophils Absolute Lymphocytes Absolute Monocytes Absolute Eosinophils Absolute Basophils PT INR APTT VBG Lactate Sodium Potassium Chloride Carbon Dioxide Anion Gap BUN Creatinine Est GFR (CKD-EPI 2020) Glucose Calcium Magnesium Total Bilirubin AST ALT Alkaline Phosphatase Troponin I 8176 H* Total Protein Albumin Lipase Urine Color Yellow Urine Clarity Clear Urine pH 5.5 Ur Specific [place] 1.015 Urine Protein Negative Urine Ketones Negative Urine Blood Trace-intact H Urine Nitrite Negative Urine Bilirubin Negative Urine Urobilinogen 0.2 Ur Leukocyte Esterase Negative Urine RBC 3-5 H Urine WBC Negative Ur Epithelial Cells Rare Urine Crystals Few Amorphous Urine Bacteria Rare Urine Casts 3-5 Hyaline Urine Mucus Heavy Ur Culture Indicated? No Urine Glucose Negative COVID-19 Source Nasal/Nares SARS-CoV-2 (PCR) Negative 09/16/22 09/17/22 09/17/22 21:00 00:44 03:15 WBC RBC Hgb Hct MCV MCH MCHC RDW Plt Count MPV Immature Gran % Neutrophils % Lymphocytes % Monocytes % Eosinophils % Basophils % Nucleated RBC % Absolute Neutrophils Absolute Lymphocytes Absolute Monocytes Absolute Eosinophils Absolute Basophils PT 10.3 INR 1.0 APTT 22.0 VBG Lactate Sodium Potassium Chloride Carbon Dioxide Anion Gap BUN Creatinine Est GFR (CKD-EPI 2020) Glucose Calcium Magnesium Total Bilirubin AST ALT Alkaline Phosphatase Troponin I 7719 H* 7513 H* Total Protein Albumin Lipase Urine Color Urine Clarity Urine pH Ur Specific [place] Urine Protein Urine Ketones Urine Blood Urine Nitrite Urine Bilirubin Urine Urobilinogen Ur Leukocyte Esterase Urine RBC Urine WBC Ur Epithelial Cells Urine Crystals Urine Bacteria Urine Casts Urine Mucus Ur Culture Indicated? Urine Glucose COVID-19 Source SARS-CoV-2 (PCR) 09/17/22 09/17/22 09/17/22 03:15 03:15 03:15 WBC 11.45 H RBC 4.76 Hgb 15.2 Hct 43.8 MCV 92 MCH 31.9 MCHC 34.7 RDW 13.0 Plt Count 167 MPV 10.0 Immature Gran % Neutrophils % Lymphocytes % Monocytes % Eosinophils % Basophils % Nucleated RBC % Absolute Neutrophils Absolute Lymphocytes Absolute Monocytes Absolute Eosinophils Absolute Basophils PT INR APTT 30.1 H VBG Lactate Sodium 136 Potassium 3.6 Chloride 103 Carbon Dioxide 26.7 Anion Gap 6.3 BUN 13 Creatinine 0.9 Est GFR (CKD-EPI 2020) 105.35 Glucose 119 H Calcium 8.6 Magnesium Total Bilirubin AST ALT Alkaline Phosphatase Troponin I Total Protein Albumin Lipase 379 Urine Color Urine Clarity Urine pH Ur Specific [place] Urine Protein Urine Ketones Urine Blood Urine Nitrite Urine Bilirubin Urine Urobilinogen Ur Leukocyte Esterase Urine RBC Urine WBC Ur Epithelial Cells Urine Crystals Urine Bacteria Urine Casts Urine Mucus Ur Culture Indicated? Urine Glucose COVID-19 Source SARS-CoV-2 (PCR) Time Spent with Patient Time Spent with Patient: 25-34 minutes Time was spent: preparing to see the patient(eg.review tests), obtaining and/or reviewing separately otained hiistory, referring, communicating with other health daycare assistant, indepentently interpreting results, counseling the patient and care coordination
--- NOTE | 2022-09-17 08:18 | W.PM.DS.N ---
Date of service: 09/17/22 Time of Service: 10:42 DS: Diagnosis Discharge Diagnosis (1) ACS (acute coronary syndrome): Status: Acute Asessment and Plan: Patient has evidence of NSTEMI with evidence of previously completed inferior wall infarct with Q waves in limb leads II, III and aVF. He had no evidence for acute congestive heart failure at the time of discharge was free of any chest pain. Patient was treated with aspirin, atorvastatin, Lopressor, heparin drip. Patient is transferred to [facility] to the cardiology service of Dr. Escoto. (2) Appendicitis: Status: Acute Asessment and Plan: Acute appendicitis was treated medically with broad-spectrum antibiotics including metronidazole and ceftriaxone (3) Elevated lipase: Status: Acute Asessment and Plan: . Patient patient had no evidence for pancreatitis on CT scan elevated lipase was presumed secondary to acute inflammation from his appendicitis Discharge Plan Disposition Patient Disposition: Transfer-Acute Inpatient Care Specific Acute Inpt Facility: [facility] Condition: Stable Discharge Details Reason For Visit: ACS, Appendicitis Admit Date/Time: 09/16/22 23:08 Admit Provider: Roel Dumont Attending Provider: Roel Dumont Primary Care Provider: Michaela Herring Hospital Course Hospital Course: 46-year-old male with history of TBI and tobacco use presenting with complaints of acute right lower quadrant abdominal pain that had been preceded with 2 days of chest pain. No associated shortness of breath fever chills nausea or vomiting. Evaluation emergency department showed he was afebrile abdominal exam demonstrated right lower quadrant tenderness at McBurney's point. Laboratory studies were remarkable for white cell count of 14,000 and elevated lipase of 1900 and a troponin I level of 7900 and EKG that demonstrated sinus rhythm with evidence of a previously completed inferior wall myocardial infarction with Q waves in limb leads II, III and aVF. CT scan of the abdomen was remarkable for normal pancreas but subtle inflammatory findings around the appendix consistent with appendicitis. ED provider spoke with the surgeon on-call who recommended medical management with Rocephin and Flagyl and [facility] cardiology was consulted on the patient and they recommended treatment for ACS with aspirin and heparin and recommended transfer in the morning to the service of Dr. Heller for cardiac catheterization. Patient was admitted overnight to the intensive care unit at [facility] where he was started on heparin drip given a loading dose of aspirin and started on low-dose metoprolol 25 mg every 12 hours. Patient remained hemodynamically stable overnight and was transferred to [facility] to the cardiology service of Dr. Heller. Home Meds and New Rx's Prescriptions: No Action No Known Home Meds Discharge Instructions Activity:: Bed rest Equipment/Supplies:: No Equipment Needed Diet:: NPO Discharge Orders Discharge Orders: Discharge Order (Routine); Ordered 09/17/22 Ordered By: Yan Yates DS: Summary Summary Time spent discussing smoking cessation with patient: 3 to 10 minutes Time Spent with Patient providing and/or coordinating discharge services: Greater than 30 minutes Specific discharge activities: Interview/exam of patient; review of discharge instructions, completion of prescriptions/discharge instructions; discussion w/ nursing and CM; documentation of hospital visit Status at Discharge Functional status at discharge: independent ambulation Overall status at discharge: patient is not back to baseline Mental Status: mental status grossly normal Speech and Movement: speech and movement normal Mood: congruent mood Affect: normal affect Quality: AMI Clinical Trial Participant: No Exam Narrative Exam Narrative: Obese white male sitting up in bed alert oriented person place time circumstance. Neck is obese no overt JVD Lungs are clear to auscultation Heart is regular without appreciable murmur rub Abdomen is obese with hypoactive bowel sounds slightly distended with mild tenderness in right lower quadrant but no rebound tenderness or guarding Extremities without peripheral cyanosis or edema Psych Mental Status: mental status grossly normal Speech and Movement: speech and movement normal Mood: congruent mood Affect: normal affect DS: Data Vitals/I&O Vitals and I&O: Vital Signs Temperature 36.1 C L 09/17/22 06:04 Temperature Source Temporal Artery Scan 09/17/22 06:04 Pulse 81 09/17/22 06:04 Respiratory Rate 20 09/17/22 06:04 Respiratory Effort Non-Labored 09/17/22 04:00 Respiratory Depth Normal 09/17/22 04:00 Respiratory Pattern Normal 09/17/22 04:00 Blood Pressure 131/71 09/17/22 06:04 Blood Pressure Mean 94 09/17/22 04:00 Blood Pressure Position Sitting 09/16/22 15:29 Pulse Oximetry 95 09/17/22 06:04 Oxygen Delivery Method Room Air 09/17/22 06:04 Oxygen Flow Rate 0 09/17/22 06:04 Pain Level 0 01/16/23 06:04 Intake & Output 09/16/22 09/16/22 09/17/22 11:59 23:59 11:59 Intake Total 1150 / 1150 512.5 / 512.5 Output Total 400 / 400 Balance 1150 / 1150 112.5 / 112.5 Weight 130 kg 127.3 kg Intake: IV 1150 / 1150 512.5 / 512.5 Output: Urine 400 / 400 Other: Urine Color Dark Milly Urine Appearance Clear Urine Odor None Comment Has not voided Data Completed and Pending Pending studies at discharge: Echocardiogram report is pending at this time Labs on day of discharge: Labs from last 24 hours 09/17/22 09/17/22 09/17/22 10:00 03:15 03:15 WBC 11.45 H RBC 4.76 Hgb 15.2 Hct 43.8 MCV 92 MCH 31.9 MCHC 34.7 RDW 13.0 Plt Count 167 MPV 10.0 Immature Gran % Neutrophils % Lymphocytes % Monocytes % Eosinophils % Basophils % Nucleated RBC % Absolute Neutrophils Absolute Lymphocytes Absolute Monocytes Absolute Eosinophils Absolute Basophils PT INR APTT Pending 30.1 H VBG Lactate Sodium Potassium Chloride Carbon Dioxide Anion Gap BUN Creatinine Est GFR (CKD-EPI 2020) Glucose Calcium Magnesium Total Bilirubin AST ALT Alkaline Phosphatase Troponin I Total Protein Albumin Lipase Urine Color Urine Clarity Urine pH Ur Specific [place] Urine Protein Urine Ketones Urine Blood Urine Nitrite Urine Bilirubin Urine Urobilinogen Ur Leukocyte Esterase Urine RBC Urine WBC Ur Epithelial Cells Urine Crystals Urine Bacteria Urine Casts Urine Mucus Ur Culture Indicated? Urine Glucose COVID-19 Source SARS-CoV-2 (PCR) 09/17/22 09/17/22 09/17/22 03:15 03:15 00:44 WBC RBC Hgb Hct MCV MCH MCHC RDW Plt Count MPV Immature Gran % Neutrophils % Lymphocytes % Monocytes % Eosinophils % Basophils % Nucleated RBC % Absolute Neutrophils Absolute Lymphocytes Absolute Monocytes Absolute Eosinophils Absolute Basophils PT INR APTT VBG Lactate Sodium 136 Potassium 3.6 Chloride 103 Carbon Dioxide 26.7 Anion Gap 6.3 BUN 13 Creatinine 0.9 Est GFR (CKD-EPI 2020) 105.35 Glucose 119 H Calcium 8.6 Magnesium Total Bilirubin AST ALT Alkaline Phosphatase Troponin I 7513 H* 7719 H* Total Protein Albumin Lipase 379 Urine Color Urine Clarity Urine pH Ur Specific [place] Urine Protein Urine Ketones Urine Blood Urine Nitrite Urine Bilirubin Urine Urobilinogen Ur Leukocyte Esterase Urine RBC Urine WBC Ur Epithelial Cells Urine Crystals Urine Bacteria Urine Casts Urine Mucus Ur Culture Indicated? Urine Glucose COVID-19 Source SARS-CoV-2 (PCR) 09/16/22 09/16/22 09/16/22 21:00 19:15 17:35 WBC RBC Hgb Hct MCV MCH MCHC RDW Plt Count MPV Immature Gran % Neutrophils % Lymphocytes % Monocytes % Eosinophils % Basophils % Nucleated RBC % Absolute Neutrophils Absolute Lymphocytes Absolute Monocytes Absolute Eosinophils Absolute Basophils PT 10.3 INR 1.0 APTT 22.0 VBG Lactate Sodium Potassium Chloride Carbon Dioxide Anion Gap BUN Creatinine Est GFR (CKD-EPI 2020) Glucose Calcium Magnesium Total Bilirubin AST ALT Alkaline Phosphatase Troponin I 8176 H* Total Protein Albumin Lipase Urine Color Urine Clarity Urine pH Ur Specific [place] Urine Protein Urine Ketones Urine Blood Urine Nitrite Urine Bilirubin Urine Urobilinogen Ur Leukocyte Esterase Urine RBC Urine WBC Ur Epithelial Cells Urine Crystals Urine Bacteria Urine Casts Urine Mucus Ur Culture Indicated? Urine Glucose COVID-19 Source Nasal/Nares SARS-CoV-2 (PCR) Negative 09/16/22 09/16/22 09/16/22 17:19 16:40 16:20 WBC 14.03 H RBC 5.26 Hgb 16.3 Hct 48.8 MCV 93 MCH 31.0 MCHC 33.4 RDW 12.8 Plt Count 194 MPV 9.9 Immature Gran % 0.6 Neutrophils % 70.6 Lymphocytes % 17.2 Monocytes % 11.4 Eosinophils % 0.1 Basophils % 0.1 Nucleated RBC % 0.0 Absolute Neutrophils 9.91 H Absolute Lymphocytes 2.41 Absolute Monocytes 1.60 H Absolute Eosinophils 0.01 Absolute Basophils 0.01 PT INR APTT VBG Lactate 1.4 Sodium Potassium Chloride Carbon Dioxide Anion Gap BUN Creatinine Est GFR (CKD-EPI 2020) Glucose Calcium Magnesium Total Bilirubin AST ALT Alkaline Phosphatase Troponin I Total Protein Albumin Lipase Urine Color Yellow Urine Clarity Clear Urine pH 5.5 Ur Specific [place] 1.015 Urine Protein Negative Urine Ketones Negative Urine Blood Trace-intact H Urine Nitrite Negative Urine Bilirubin Negative Urine Urobilinogen 0.2 Ur Leukocyte Esterase Negative Urine RBC 3-5 H Urine WBC Negative Ur Epithelial Cells Rare Urine Crystals Few Amorphous Urine Bacteria Rare Urine Casts 3-5 Hyaline Urine Mucus Heavy Ur Culture Indicated? No Urine Glucose Negative COVID-19 Source SARS-CoV-2 (PCR) 09/16/22 16:20 WBC RBC Hgb Hct MCV MCH MCHC RDW Plt Count MPV Immature Gran % Neutrophils % Lymphocytes % Monocytes % Eosinophils % Basophils % Nucleated RBC % Absolute Neutrophils Absolute Lymphocytes Absolute Monocytes Absolute Eosinophils Absolute Basophils PT INR APTT VBG Lactate Sodium 136 Potassium 4.1 Chloride 100 Carbon Dioxide 29.0 Anion Gap 7.0 BUN 13 Creatinine 1.0 Est GFR (CKD-EPI 2020) 92.84 Glucose 106 Calcium 9.3 Magnesium 2.0 Total Bilirubin 0.7 AST 104 H ALT 56 Alkaline Phosphatase 73 Troponin I 7967 H* Total Protein 7.7 Albumin 3.8 Lipase 1974 H Urine Color Urine Clarity Urine pH Ur Specific [place] Urine Protein Urine Ketones Urine Blood Urine Nitrite Urine Bilirubin Urine Urobilinogen Ur Leukocyte Esterase Urine RBC Urine WBC Ur Epithelial Cells Urine Crystals Urine Bacteria Urine Casts Urine Mucus Ur Culture Indicated? Urine Glucose COVID-19 Source SARS-CoV-2 (PCR) PFSH All Active Problems ACS (acute coronary syndrome) (Acute) Elevated lipase (Acute) Appendicitis (Acute) Medical History TBI (traumatic brain injury) Social History Smoking/Tobacco Use Status: Current every day Tobacco Type: cigarettes Smoking risk assessment performed?: Yes Alcohol Intake: current Alcohol Intake frequency: a few times a month Drug use: Daily Substance use type: marijuana Do you feel safe at home: Yes Do you feel safe in your relationship?: Yes Time Spent with Patient Time Spent with Patient: <45 minutes Time was spent: referring, communicating with other health home care manager and care coordination
[2022-09-17] MEDS: Atorvastatin 40 MG TAB PO (08:38)
--- NOTE | 2022-09-17 10:00 | DI.US_ITS ---
APPROVED REPORT EXAM: Comprehensive 2D, Doppler, and color-flow Echocardiogram Patient Location: In-Patient Room/Bed: XQI294 Stamp Classifier: Ada Valle RDCS (AE) Indications: KS, Chest pain, Smoker Other Information Study Quality: Fair. Technically limited study due to body habitus, inability to position patient exa m done supine bedside. Conclusion Technically limited study Left ventricle is normal in size and wall thickness. Estimated ejection fraction is 40%. No segment al wall motion abnormalities were identified but cannot be excluded within the limits of the study Right ventricle, left atrium, and right atrium were not well visualized Aortic valve is trileaflet Mitral valve appears grossly normal No hemodynamically significant valvular disease was identified Wall motion Left Ventricle The left ventricle is normal size. Left ventricular systolic function is mild to moderately decreased . There is normal left ventricular wall thickness. There is global hypokinesis of the left ventricle. There is no ventricular septal defect visualized. LVEF is 39%. Right Ventricle Right ventricle is not well visualized. Right ventricular systolic function could not be assessed. Atria Left atrium is not well visualized. Right atrium is not well visualized. The interatrial septum is in tact with no evidence for an atrial septal defect. Aortic Valve The aortic valve is normal in structure. There is no aortic valvular stenosis. No aortic regurgitatio n is present. Mitral Valve The mitral valve is normal in structure. No evidence of mitral valve stenosis. Trace mitral regurgita tion. Tricuspid Valve The tricuspid valve is normal in structure. There is no tricuspid valve stenosis. Trace tricuspid reg urgitation. Unable to assess PA pressure. Pulmonic Valve The pulmonary valve is normal in structure. There is no pulmonic valvular stenosis. There is no pulmo doretha valvular regurgitation. Great Vessels The aortic root is normal in size. The ascending aorta is normal in size. Aortic arch is normal in ca liber. IVC is normal in size and collapses >50% with inspiration. Pericardium There is no pericardial effusion. 2D Dimensions IVSD d PLAX 0.95 cm M: 0.6-1.2 LV Vol A2C d MOD 101.8 mL LVPW d PLAX 0.95 cm M: 0.6 - 1.2 LV Vol A4C d MOD 173.1 mL LVID d PLAX 4.92 cm M: 4.2 - 5.8 LV EF A4C MOD 39.2 % LVDs 4.05 cm M: 2.5 - 4.0 LV EF A2C MOD 38.4 % Ao Root d 2.68 cm M: 3.1 - 3.7 LV EF Biplane MOD 40.1 % Ao Asc Diam d 3.48 cm M: 2.6 - 3.4 SV 54.98 mL LV EF Teichholz 36.2 % SV Index 21.93 mL/m2 LVEF (Ribeiro's) 40.07 % M: 52 - 72 LV Volume 95.96 mL M: 62 - 150 LV Volume Index 38.23 mL/m2 M: 34 - 74 LV Vol Biplane MOD 137.2 mL FS 17.40 % LV Diastology MV E' medial 0.122 (>0.07 m/s) E/A Ratio 1.5 LV E/e MED 6.90 (<14) MV E Vmax 0.84 (0.4-1.3 m/s) MV E' lateral 0.119 (>0.1 m/s) MV A Vmax 0.55 (0.4-1.3 m/s) LV E/e LAT 7.05 (<14) MV E/A Ratio 1.52 MV E/E' medial 6.91 MV E/E' lateral 7.08 Aortic Valve LVOT Area 3.17 cm2 AoV Area Vmax 2.08 cm2 LVOT Vmax 0.77 m/s AoV Area/ BSA (Vmax) 0.83 cm2/m2 LVOT Mean Yasir. 0.62 m/s AYAKA Mean Yasir. 2.34 cm2 LVOT Peak Grad 2.4 mmHg AYAKA Mean Yasir. Index 0.93 cm2/m2 LVOT Mean Grad 1.6 mmHg LVOT VTI 0.148 m LVOT Diam s 2.00 cm AoV Vmax 1.18 m/s Velocity Ratio 0.65 AoV Mean Yasir. 0.84 m/s AoV Peak Grad 5.6 mmHg LVOT SV 46.99 mL AoV Mean Grad 3.1 mmHg AoV VTI 0.218 m AoV Area VTI 2.16 cm2 AoV Area/ BSA (VTI) 0.86 cm/m2 Mitral Valve MV DT 203 (160-240 msec) MV PHT 59 msec MV Area PHT 3.74 cm2 MV VTI 0.312 m MV Area VTI 1.51 (4.0-6.0 cm2) Pulmonary Valve PV Vmax 0.91 (0.5-1.5 m/s) RVOT Peak Gr. 1.42 mmHg PV Peak Grad 3.3 mmHg RVOT Mean Gr. 0.70 mmHg PV Mean Grad 1.9 mmHg RVOT VTI 0.127 m PV VTI 0.180 m RVOT Vmax 0.60 m/s
--- NOTE | 2022-09-17 10:02 | W.SURGCON ---
Documented by User: TRACIE Nunes 09/18/22 15:29 Date of service: 09/17/22 Time of Service: 10:02 Assessment and Plan Assessment and plan (1) Appendicitis: Status: Acute Assessment and plan: Given patient's cardiac status and concerns. Recommended antibiotic treatment and watchful waiting for signs or worsening symptoms to suggest appendicitis. Recommend he continue PO antibiotics prophylatically. Patient is awaiting transfer to [facility]. (2) ACS (acute coronary syndrome): Status: Acute History of Present Illness Narrative: 46 y/o male whom presented to the ER with complaints of abdominal pain x 2 days assoicated with constipation. The patient however was found to have elevated troponins and evidence of NSTEMI. Patient is awaiting transfer to [facility]. Patient denied having any pain. He denies any nausea or vomiting. PFSH All Active Problems ACS (acute coronary syndrome) (Acute) Elevated lipase (Acute) Appendicitis (Acute) Medical History TBI (traumatic brain injury) Social History Smoking/Tobacco Use Status: Current every day Tobacco Type: cigarettes Smoking risk assessment performed?: Yes Alcohol Intake: current Alcohol Intake frequency: a few times a month Drug use: Daily Substance use type: marijuana Do you feel safe at home: Yes Do you feel safe in your relationship?: Yes Exam Const General: cooperative and comfortable Orientation: alert and oriented x3 Resp Effort & Inspection: normal respiratory effort, no audible wheezes and no cough GI Inspection: normal to inspection Palpation: soft and tender in the LLQ Results Last Vital Signs Temp 36.9 C 09/17/22 08:20 Pulse 86 09/17/22 08:20 Resp 18 09/17/22 08:20 BP 100/62 09/17/22 08:20 Pulse Ox 96 09/17/22 08:20 Labs Result diagrams: 09/17/22 03:15 09/17/22 03:15 Labs: Laboratory Results - last 24 hr 09/16/22 09/16/22 09/16/22 16:20 16:20 16:40 WBC 14.03 H RBC 5.26 Hgb 16.3 Hct 48.8 MCV 93 MCH 31.0 MCHC 33.4 RDW 12.8 Plt Count 194 MPV 9.9 Immature Gran % 0.6 Neutrophils % 70.6 Lymphocytes % 17.2 Monocytes % 11.4 Eosinophils % 0.1 Basophils % 0.1 Nucleated RBC % 0.0 Absolute Neutrophils 9.91 H Absolute Lymphocytes 2.41 Absolute Monocytes 1.60 H Absolute Eosinophils 0.01 Absolute Basophils 0.01 PT INR APTT VBG Lactate 1.4 Sodium 136 Potassium 4.1 Chloride 100 Carbon Dioxide 29.0 Anion Gap 7.0 BUN 13 Creatinine 1.0 Est GFR (CKD-EPI 2020) 92.84 Glucose 106 Calcium 9.3 Magnesium 2.0 Total Bilirubin 0.7 AST 104 H ALT 56 Alkaline Phosphatase 73 Troponin I 7967 H* Total Protein 7.7 Albumin 3.8 Lipase 1974 H Urine Color Urine Clarity Urine pH Ur Specific [place] Urine Protein Urine Ketones Urine Blood Urine Nitrite Urine Bilirubin Urine Urobilinogen Ur Leukocyte Esterase Urine RBC Urine WBC Ur Epithelial Cells Urine Crystals Urine Bacteria Urine Casts Urine Mucus Ur Culture Indicated? Urine Glucose COVID-19 Source SARS-CoV-2 (PCR) 09/16/22 09/16/22 09/16/22 17:19 17:35 19:15 WBC RBC Hgb Hct MCV MCH MCHC RDW Plt Count MPV Immature Gran % Neutrophils % Lymphocytes % Monocytes % Eosinophils % Basophils % Nucleated RBC % Absolute Neutrophils Absolute Lymphocytes Absolute Monocytes Absolute Eosinophils Absolute Basophils PT INR APTT VBG Lactate Sodium Potassium Chloride Carbon Dioxide Anion Gap BUN Creatinine Est GFR (CKD-EPI 2020) Glucose Calcium Magnesium Total Bilirubin AST ALT Alkaline Phosphatase Troponin I 8176 H* Total Protein Albumin Lipase Urine Color Yellow Urine Clarity Clear Urine pH 5.5 Ur Specific [place] 1.015 Urine Protein Negative Urine Ketones Negative Urine Blood Trace-intact H Urine Nitrite Negative Urine Bilirubin Negative Urine Urobilinogen 0.2 Ur Leukocyte Esterase Negative Urine RBC 3-5 H Urine WBC Negative Ur Epithelial Cells Rare Urine Crystals Few Amorphous Urine Bacteria Rare Urine Casts 3-5 Hyaline Urine Mucus Heavy Ur Culture Indicated? No Urine Glucose Negative COVID-19 Source Nasal/Nares SARS-CoV-2 (PCR) Negative 09/16/22 09/17/22 09/17/22 21:00 00:44 03:15 WBC RBC Hgb Hct MCV MCH MCHC RDW Plt Count MPV Immature Gran % Neutrophils % Lymphocytes % Monocytes % Eosinophils % Basophils % Nucleated RBC % Absolute Neutrophils Absolute Lymphocytes Absolute Monocytes Absolute Eosinophils Absolute Basophils PT 10.3 INR 1.0 APTT 22.0 VBG Lactate Sodium Potassium Chloride Carbon Dioxide Anion Gap BUN Creatinine Est GFR (CKD-EPI 2020) Glucose Calcium Magnesium Total Bilirubin AST ALT Alkaline Phosphatase Troponin I 7719 H* 7513 H* Total Protein Albumin Lipase Urine Color Urine Clarity Urine pH Ur Specific [place] Urine Protein Urine Ketones Urine Blood Urine Nitrite Urine Bilirubin Urine Urobilinogen Ur Leukocyte Esterase Urine RBC Urine WBC Ur Epithelial Cells Urine Crystals Urine Bacteria Urine Casts Urine Mucus Ur Culture Indicated? Urine Glucose COVID-19 Source SARS-CoV-2 (PCR) 09/17/22 09/17/22 09/17/22 03:15 03:15 03:15 WBC 11.45 H RBC 4.76 Hgb 15.2 Hct 43.8 MCV 92 MCH 31.9 MCHC 34.7 RDW 13.0 Plt Count 167 MPV 10.0 Immature Gran % Neutrophils % Lymphocytes % Monocytes % Eosinophils % Basophils % Nucleated RBC % Absolute Neutrophils Absolute Lymphocytes Absolute Monocytes Absolute Eosinophils Absolute Basophils PT INR APTT 30.1 H VBG Lactate Sodium 136 Potassium 3.6 Chloride 103 Carbon Dioxide 26.7 Anion Gap 6.3 BUN 13 Creatinine 0.9 Est GFR (CKD-EPI 2020) 105.35 Glucose 119 H Calcium 8.6 Magnesium Total Bilirubin AST ALT Alkaline Phosphatase Troponin I Total Protein Albumin Lipase 379 Urine Color Urine Clarity Urine pH Ur Specific [place] Urine Protein Urine Ketones Urine Blood Urine Nitrite Urine Bilirubin Urine Urobilinogen Ur Leukocyte Esterase Urine RBC Urine WBC Ur Epithelial Cells Urine Crystals Urine Bacteria Urine Casts Urine Mucus Ur Culture Indicated? Urine Glucose COVID-19 Source SARS-CoV-2 (PCR) Documented by User: Sam Lacy MD 09/19/22 22:12 Assessment and Plan Assessment and plan (1) Appendicitis: Status: Acute Assessment and plan: Given patient's cardiac status and concerns. Recommended antibiotic treatment and watchful waiting for signs or worsening symptoms to suggest appendicitis. Recommend he continue PO antibiotics prophylatically. Patient is awaiting transfer to [facility]. NOTE: I had reviewed the CT abd/pel imaging for this patient, and had recommended non-operative oral antibiotic treatment by phone consult, before it was revealed that the patient was having an evolving acute coronary event. I agree with the note detailed above by Twila Acharya, and recommend prophylaxtic treatment with oral antibiotics for 7 days. The patient was transferred to [facility] before I could evaluate him in person. (2) ACS (acute coronary syndrome): Status: Acute PFSH All Active Problems ACS (acute coronary syndrome) (Acute) Elevated lipase (Acute) Appendicitis (Acute) Medical History TBI (traumatic brain injury) Social History Smoking/Tobacco Use Status: Current every day Tobacco Type: cigarettes Smoking risk assessment performed?: Yes Alcohol Intake: current Alcohol Intake frequency: a few times a month Drug use: Daily Substance use type: marijuana Do you feel safe at home: Yes Do you feel safe in your relationship?: Yes Results Labs Result diagrams: 09/17/22 03:15 09/17/22 03:15
[2022-09-17 10:30] LABS: PTT Activated 31.7 sec (21.0-27.5)
== END 2022-09-17 11:46 | disposition short-term general hospital (02) ==
LOC: ER 09-17 00:19 → ICU 09-17 00:27
PROVIDERS: Admitting Provider General Practice; Emergency Provider Nurse Practitioner Family; PCP Nurse Practitioner Family; Visit Provider General Practice
DX: I21.4 Non-ST elevation (NSTEMI) myocardial infarction (principal); K59.00 Constipation, unspecified; F12.90 Cannabis use, unspecified, uncomplicated; I25.2 Old myocardial infarction; I45.10 Unspecified right bundle-branch block; F17.210 Nicotine dependence, cigarettes, uncomplicated; Z20.822 Contact with and (suspected) exposure to COVID-19; K35.80 Unspecified acute appendicitis; Z87.820 Personal history of traumatic brain injury; E66.9 Obesity, unspecified; Z68.36 Body mass index [BMI] 36.0-36.9, adult
CPT/HCPCS: 36415; 80048; 80053; 83690; 85027; 87635; 93005; 93306; 96361; 96365; 96366; 96367; 96368; 96375; 96376; 99222; 99284; 99285; 71045; 74177; 81003; 81015; 83605; 83735; 84484; 85025; 85610; 85730; 93010; 99223; 99239; G0378; J0696; J1644; J1885; J3480; J3490

== ENCOUNTER 2022-09-25 16:39 | Outpatient (REF) | payer MEDICARE, MEDICAID, SELFPAY ==
[2022-09-25 18:31] LABS: Anion Gap 5.3 mmol/L (3-11); BUN 16 mg/dL (7-18); CO2 29.7 mmol/L (21.0-32.0); CREATININE 0.9 mg/dL (0.70-1.30); Calcium 9.2 mg/dL (8.5-10.1); Chloride 103 mmol/L (98-107); Estimated GFR 105.35 (mL/min/1.73m2); Glucose 106 mg/dL (74-106); Potassium 4.6 mmol/L (3.5-5.1); Sodium 138 mmol/L (136-145)
== END 2022-09-25 16:40 | disposition home or self-care (01) ==
LOC: NCHCN 16:39
PROVIDERS: PCP Nurse Practitioner Family; Visit Provider Nurse Practitioner Family
DX: R07.89 Other chest pain (principal); I25.2 Old myocardial infarction
CPT/HCPCS: 80048

== ENCOUNTER 2022-10-05 11:31 | Outpatient (CLI) | payer MEDICARE, MEDICAID, SELFPAY ==
--- NOTE | 2022-10-05 11:30 | RT.EKG_ITS ---
APPROVED REPORT Exam: Resting ECG Reason for Exam: hx of NSTEMI Patient Location: O HR:74 bpm ECG Measurements Heart Rate 74 AXIS NV 171 P 31 QRSd 98 QRS -57 QT 377 T 34 QTc 419 Conclusion Sinus rhythm...normal P axis, V-rate 50- 99 Inferior infarct, old...Q >35mS, II III aVF
== END 2022-10-05 11:32 | disposition home or self-care (01) ==
LOC: DI.CARD 11:32
PROVIDERS: PCP Nurse Practitioner Family; Visit Provider Internal Medicine Cardiovascular Disease
DX: I25.2 Old myocardial infarction
CPT/HCPCS: 93010

== ENCOUNTER → 2022-10-05 11:32 | Outpatient (BNVA) | payer MEDICARE, MEDICAID, SELFPAY | PROVIDERS: PCP Nurse Practitioner Family; Referring Provider Nurse Practitioner Family; Visit Provider Internal Medicine Cardiovascular Disease | DX: I21.4 Non-ST elevation (NSTEMI) myocardial infarction (principal); I24.9 Acute ischemic heart disease, unspecified; I25.10 Atherosclerotic heart disease of native coronary artery without angina pectoris; F17.210 Nicotine dependence, cigarettes, uncomplicated | CPT/HCPCS: 93005; 99203; 99214 ==

== ENCOUNTER 2023-01-16 18:43 | Emergency (ER) | payer MEDICARE, MEDICAID, SELFPAY ==
[2023-01-16 18:48] VITALS: PULSE 79; RESP 18; TEMP 36.4; O2SAT 97
[2023-01-16 18:49] VITALS: BP 118/74
--- NOTE | 2023-01-16 20:07 | ED.GENADUL_ITS ---
Discharge Plan Disposition Patient Disposition: Home Discharge Details Clinical Impression: Abscess of buttock, right Primary Care Provider: Michaela Herring ED Provider: Willis Singh Home Meds and New Rx's Prescriptions: New clindamycin HCl 150 mg capsule 450 mg PO TID 7 Days Qty: 63 0RF Continued aspirin 81 mg tablet,delayed release (DR/EC) 81 mg PO DAILY atorvastatin 80 mg tablet 80 mg PO DAILY clopidogrel [Plavix] 75 mg tablet 75 mg PO DAILY losartan 25 mg tablet 25 mg PO DAILY metoprolol succinate 50 mg tablet extended release 24 hr 50 mg PO DAILY nicotine 21 mg/24 hr patch 24 hour 1 patch transdermal DAILY nitroglycerin 0.4 mg tablet, sublingual 0.4 mg sublingual Q5M PRN Rx Instructions: do not exceed 3 doses per episode moxifloxacin [Vigamox] 0.5 % drops 1 drp ophthalmic (eye) TID Patient Comments: right eye prednisolone acetate 1 % drops,suspension 1 drp ophthalmic (eye) QID Patient Comments: right eye Discharge Instructions Instructions: Abscess (ED) Additional Instructions: Please continue to monitor for any worsening of symptoms and return immediately if that occurs. Otherwise follow-up with your primary care provider for recheck of your abscess preferably in 48 hours. Referrals: Michaela Herring [Primary Care Provider] - 2 days (As needed for reassessment) Discharge Data Discharge Date/Time-TO BE ENTERED AT DEPARTURE: 01/16/23 20:18 Medical Decision Making Right upper buttock midline abscess approximately 4 cm in length. Fluctuant with erythema. Patient gave verbal consent to drainage. Please see procedure note. Not a whole lot of drainage was expressed so we will place patient on antibiotic and have him monitor symptoms and return for any new or worsening of symptoms. After discussion of diagnosis and plan of care patient has no further needs, questions, or concerns and states clear understanding to return to the emergency department for any worsening symptoms. This documentation was generated using [employer]erc[employer] dictation system, please disregard any oddities of phrase or misspellings. HPI General Mode of arrival: ambulatory . Date/Time Provider Initiated Documentation: 01/16/23 18:58 . Limitations to Documentation: no limitations . Information obtained by: patient and RN notes reviewed . History of Present Illness 47 year old M presents to the emergency department with the chief complaint of buttock pain , described as moderate, with intensity rated at 7. Quality is described as aching, and is localized to the buttocks. Patient started experiencing this day(s) (4) and it has been constant. No relieving factors improve symptom(s), No exacerbating factors reported . Patient notes no other symptoms.. Patient did receive the following treatments prior to arrival, none Related Data Home Medications Medication Instructions Recorded Confirmed aspirin 81 mg tablet,delayed 81 mg PO DAILY 10/04/22 10/05/22 release atorvastatin 80 mg tablet 80 mg PO DAILY 10/04/22 10/05/22 clopidogrel 75 mg tablet (Plavix) 75 mg PO DAILY 10/04/22 10/05/22 losartan 25 mg tablet 25 mg PO DAILY 10/04/22 10/05/22 metoprolol succinate 50 mg 50 mg PO DAILY 10/04/22 10/05/22 tablet,extended release 24 hr moxifloxacin 0.5 % eye drops 1 drp ophthalmic (eye) TID 10/04/22 10/05/22 (Vigamox) nicotine 21 mg/24 hr daily 1 patch transdermal DAILY 10/04/22 10/05/22 transdermal patch nitroglycerin 0.4 mg sublingual 0.4 mg sublingual Q5M PRN 10/04/22 10/05/22 tablet prednisolone acetate 1 % eye 1 drp ophthalmic (eye) QID 10/04/22 10/05/22 drops,suspension clindamycin HCl 150 mg capsule 450 mg PO TID 7 days #63 caps 01/16/23 Previous Rx's Medication Instructions Recorded clindamycin HCl 150 mg capsule 450 mg PO TID 7 days #63 caps 01/16/23 Allergies Allergy/AdvReac Type Severity Reaction Status Date / Time Penicillins Allergy unkown Unverified 01/16/23 18:48 General Stated Complaint: GenMedical FARIBA: 4 Review of Systems Constitutional Constitutional: Denies chills and Denies fever(s) Gastrointestinal Gastrointestinal: Denies abdominal pain and Denies hematochezia Musculoskeletal Musculoskeletal: Reports as per HPI Integumentary/Breasts Skin/Breast: Reports rash, Reports skin pain and Reports skin swelling PFSH All Active Problems (Updated 01/16/23 @ 20:07 by Willis Singh NP) Abscess of buttock, right (Acute) Coronary artery disease (Chronic) ACS (acute coronary syndrome) (Acute) Elevated lipase (Acute) Appendicitis (Acute) Medical History TBI (traumatic brain injury) Social History Smoking/Tobacco Use Status: Current every day Tobacco Type: cigarettes Smoking risk assessment performed?: Yes Alcohol Intake: current Alcohol Intake frequency: a few times a month Drug use: Daily Substance use type: marijuana Do you feel safe at home: Yes Do you feel safe in your relationship?: Yes Exam Const General: cooperative, no acute distress and not ill appearing Orientation: alert, awake and oriented x3 HENMT Mouth: moist mucous membranes Resp Effort & Inspection: normal respiratory effort, able to speak in complete s entences and no respiratory distress Back/Spine/Pelvis Pelvis: buttock swelling (small abscess of upper middle right buttock) Neuro General: patient alert, patient awake, patient oriented x3, moves all extremities and no focal motor deficits Sensory Exam: no sensory deficits noted Course Vital Signs Vital signs: Vital Signs Temperature 36.4 C L 01/16/23 18:48 Pulse 79 01/16/23 18:48 Respiratory Rate 18 01/16/23 18:48 Pulse Oximetry 97 01/16/23 18:48 Temperature 36.4 C L 01/16/23 18:48 Temperature Source Temporal Artery Scan 01/16/23 18:48 Pulse 79 01/16/23 18:48 Respiratory Rate 18 01/16/23 18:48 Respiratory Effort Normal, Non-Labored 01/16/23 18:48 Blood Pressure 118/74 01/16/23 18:49 Pulse Oximetry 97 01/16/23 18:48 Oxygen Delivery Method Room Air 01/16/23 18:48 Oxygen Flow Rate 0 01/16/23 18:48 Procedures Abscess I/D Site: Other (buttock) Side (if applicable): Right Local Anesthetic: Lidocaine 1% Amount of anesthesia used (mL): 9 Technique: Incised with #11 Blade Complications: Bleeding
[2023-01-16 20:08] VITALS: RESP 20
--- NOTE | 2023-01-16 20:14 | NUR.NOTE ---
pT PLACED ON REFERRAL LIST FOR PRIMARY for recheck of abscess within 48hrs
[2023-01-16] MEDS: Clindamycin 150 MG CAP, 12 CAPS/BTL 450 MG PO (20:15)
== END 2023-01-16 20:18 | disposition home or self-care (01) ==
PROVIDERS: Emergency Provider Nurse Practitioner Family; PCP Nurse Practitioner Family
DX: L02.31 Cutaneous abscess of buttock (principal)
CPT/HCPCS: 10060

== ENCOUNTER 2023-04-07 01:20 | Emergency (ER) | payer MEDICARE, MEDICAID, SELFPAY ==
[2023-04-07 01:26] VITALS: BP 98/81; PULSE 72; RESP 16; TEMP 37.1; O2SAT 96
--- NOTE | 2023-04-07 02:00 | ED.GENADUL_ITS ---
Discharge Plan Disposition Patient Disposition: Home Discharge Details Clinical Impression: Immunization, tetanus-diphtheria, Laceration of left index finger Primary Care Provider: Michaela Herring ED Provider: Paras Núñez Home Meds and New Rx's Prescriptions: Continued aspirin 81 mg tablet,delayed release (DR/EC) 81 mg PO DAILY atorvastatin 80 mg tablet 80 mg PO DAILY clopidogrel [Plavix] 75 mg tablet 75 mg PO DAILY losartan 25 mg tablet 25 mg PO DAILY metoprolol succinate 50 mg tablet extended release 24 hr 50 mg PO DAILY nicotine 21 mg/24 hr patch 24 hour 1 patch transdermal DAILY nitroglycerin 0.4 mg tablet, sublingual 0.4 mg sublingual Q5M PRN Rx Instructions: do not exceed 3 doses per episode moxifloxacin [Vigamox] 0.5 % drops 1 drp ophthalmic (eye) TID Patient Comments: right eye prednisolone acetate 1 % drops,suspension 1 drp ophthalmic (eye) QID Patient Comments: right eye Discharge Instructions Instructions: Finger Laceration (ED) Additional Instructions: Please read all of the information that accompanies these instructions. You were seen in the emergency department for your finger laceration which was closed with 2 stitches. Your stitches need to be removed in 1 week. Please schedule an appointment with your primary care provider next week. Please return to the emergency department if develop redness fevers or streaking signs of infection. For your pain please take medications as follows: 1. Take acetaminophen (Tylenol), 1,000 mg (two 500 mg tabs) every 6 hours Discharge Data Discharge Date/Time-TO BE ENTERED AT DEPARTURE: 04/07/23 02:50 Medical Decision Making This is an overall very well-appearing normothermic and not tachycardic [id number] male with left index finger laceration that violates the subcutaneous tissue. Please see my procedure note concerning primary closure in the ED. Patient also received tetanus immunization. He had full range of motion in his left hand so I am not concerned for ligamentous nor nerve injury. He did have some mildly decreased sensation and I think that this is secondary to transient neuropraxia given his injury. He had less than 2-second capillary refill so not suspicious for any acute arterial insufficiency. Furthermore his laceration was fairly superficial. There was some mild bleeding and given that violated subcutaneous tissue he tolerated primary closure well in the ED. Given return indications including any streaking signs of infection fevers or any worsening pain. Advised outpatient follow-up in the next 7 days for suture removal. Patient's blood pressure improved in the ED without intervention. HPI General Date/Time Provider Initiated Documentation: 04/07/23 02:00 . HPI Narrative: This is a [id number] 47-year-old male with a history of coronary artery disease arriving via private vehicle in setting of a laceration he sustained approximately 45 minutes ago to his left index finger. He was grabbing a handful of silverware and inadvertently grabbed a knife causing him to cut his finger. He does not know when his last tetanus was. He was in his usual state of health till his injury occurred. He denies preceding chest pain dizziness nausea vomiting. Related Data Home Medications Medication Instructions Recorded Confirmed aspirin 81 mg tablet,delayed 81 mg PO DAILY 10/04/22 04/07/23 release atorvastatin 80 mg tablet 80 mg PO DAILY 10/04/22 04/07/23 clopidogrel 75 mg tablet (Plavix) 75 mg PO DAILY 10/04/22 04/07/23 losartan 25 mg tablet 25 mg PO DAILY 10/04/22 04/07/23 metoprolol succinate 50 mg 50 mg PO DAILY 10/04/22 04/07/23 tablet,extended release 24 hr moxifloxacin 0.5 % eye drops 1 drp ophthalmic (eye) TID 10/04/22 04/07/23 (Vigamox) nicotine 21 mg/24 hr daily 1 patch transdermal DAILY 10/04/22 04/07/23 transdermal patch nitroglycerin 0.4 mg sublingual 0.4 mg sublingual Q5M PRN 10/04/22 04/07/23 tablet prednisolone acetate 1 % eye 1 drp ophthalmic (eye) QID 10/04/22 04/07/23 drops,suspension Allergies Allergy/AdvReac Type Severity Reaction Status Date / Time Penicillins Allergy unkown Unverified 04/07/23 01:32 General Stated Complaint: Laceration FARIBA: 4 PFSH All Active Problems (Updated 04/07/23 @ 02:41 by Paras Núñez MD) Immunization, tetanus-diphtheria (Acute) Laceration of left index finger (Acute) Coronary artery disease (Chronic) ACS (acute coronary syndrome) (Acute) Elevated lipase (Acute) Appendicitis (Acute) Medical History TBI (traumatic brain injury) Social History Smoking/Tobacco Use Status: Current every day Tobacco Type: cigarettes Smoking risk assessment performed?: Yes Alcohol Intake: current Alcohol Intake frequency: a few times a month Drug use: Daily Substance use type: marijuana Do you feel safe at home: Yes Do you feel safe in your relationship?: Yes Exam Narrative Exam Narrative: General: Well-appearing in no acute distress speaking in complete sentences. Head: Normocephalic, atraumatic. Eye: Extraocular eye movements intact. No conjunctival injection. No scleral icterus. Ear, nose, mouth, throat: Grossly normal inspection. Normal voice, handling secretions normally. Neck: Trachea midline. Cardiovascular: Well-perfused distal extremities. Respiratory: Nonlabored respiration. Gastrointestinal: Nondistended abdomen. Musculoskeletal: On the ulnar aspect of the patient's left index finger there is an approximately 0.5 cm laceration that is an avulsion that violates the subcutaneous tissue. Patient has full range of motion across the radian, median, and ulnar nerve distributions of the left hand. He has had a 2+ left radial pulse. Cap refill less than 2 seconds in the left fingertips. Skin: Normal for age and race, grossly normal temperature and turgor. No acute rash. Neurologic: Alert and appropriate, no apparent acute deficits. Psychiatric: Mood and manner are appropriate. Grooming and personal hygiene are appropriate. Course Vital Signs Vital signs: Vital Signs Temperature 37.1 C 04/07/23 01:26 Pulse 72 04/07/23 01:26 Respiratory Rate 16 04/07/23 01:26 Blood Pressure 98/81 L 04/07/23 01:26 Pulse Oximetry 96 04/07/23 01:26 Temperature 37.1 C 04/07/23 01:26 Temperature Source Oral 04/07/23 01:26 Pulse 72 04/07/23 01:26 Respiratory Rate 16 04/07/23 01:26 Respiratory Effort Normal 04/07/23 01:26 Blood Pressure 98/81 L 04/07/23 01:26 Blood Pressure Position Sitting 04/07/23 01:26 Pulse Oximetry 96 04/07/23 01:26 Oxygen Delivery Method Room Air 04/07/23 01:26 Oxygen Flow Rate 0 04/07/23 01:26 Pain Level 0 04/07/23 01:26 Procedures Laceration Laceration 1: Site: hand Side (If applicable): left Size (cm): 0.5 Description: flap Depth: simple, single layer Local Anesthetic: Lidocaine 1% (Digital nerve block) Amount of anesthesia used (mL): 3 Pre-repair: wound explored Skin layer closed with: other (Prolene) Size (cm): 5-0 Number of sutures: 2 Technique: simple, interrupted
[2023-04-07 02:40] VITALS: BP 126/84; PULSE 71; RESP 16; O2SAT 98
== END 2023-04-07 02:50 | disposition home or self-care (01) ==
PROVIDERS: Emergency Provider Emergency Medicine; PCP Nurse Practitioner Family
DX: S61.211A Laceration without foreign body of left index finger without damage to nail, initial encounter (principal); W26.0XXA Contact with knife, initial encounter
CPT/HCPCS: 12001; 90471

== ENCOUNTER 2023-05-23 18:57 | Emergency (ER) | payer MEDICARE, MEDICAID, SELFPAY ==
[2023-05-23 19:01] VITALS: BP 140/80; PULSE 85; RESP 20; TEMP 36.7; O2SAT 97
--- NOTE | 2023-05-23 19:43 | DI.RAD_ITS ---
Exam(s) XR FOOT RT COMPLETE EXAM: XR FOOT RT COMPLETE CLINICAL HISTORY: pain, edema, eval for FB. TECHNIQUE: 2D digital imaging was performed. Three views. COMPARISON: CR RIGHT FOOT COMPLETE from 12/14/2012 FINDINGS: BONES: No acute fracture is present. No bony destructive lesion is seen. Small heel spurs. JOINTS: No dislocation present. Mild degenerative changes. SOFT TISSUE: Marked swelling dorsally. Metallic foreign body again noted in the plantar aspect of th e foot at the level of the proximal metatarsals. New tiny metallic bony density now seen adjacent to the lateral base of the proximal phalanx of the 5th toe. IMPRESSION: Marked soft tissue swelling. New foreign body seen at the lateral base the proximal phalanx of the 5 th toe. No change in foreign body seen at the plantar aspect of the foot. DATA REPOSITORY: RADIATION DOSE DELIVERED:
[2023-05-23 20:09] LABS: HCT 48.4 % (40.0-50.0); HGB 16.3 g/dL (13.5-17.5); MCH 31.8 pg (27.0-33.0); MCHC 33.7 % (32.0-36.0); MCV 94 fL (80-95); MPV 9.8 fL (8.0-11.0); Platelet Count 185 10^3/uL (130-400); RBC 5.13 10^6/uL (4.36-5.78); RDW 12.9 % (11.8-14.1); RDW-SD 44.9 fL; WBC 11.02 10^3/uL (4.4-10.8)
[2023-05-23 20:27] LABS: ALT 57 U/L (16-63); AST 32 U/L (15-37); Albumin 3.6 g/dL (3.4-5.0); Alkaline Phosphatase 90 U/L (46-116); Anion Gap 7.3 mmol/L (3-11); BUN 11 mg/dL (7-18); Bilirubin, Total 0.3 mg/dL (0.2-1.0); CO2 27.7 mmol/L (21.0-32.0); CREATININE 0.9 mg/dL (0.70-1.30); Calcium 9.4 mg/dL (8.5-10.1); Chloride 103 mmol/L (98-107); Glucose 113 mg/dL (74-106); Potassium 4.3 mmol/L (3.5-5.1); Sodium 138 mmol/L (136-145); Total Protein 7.4 g/dL (6.4-8.2)
[2023-05-23] MEDS: Rivaroxaban 15 MG TABLET PO (21:11)
--- NOTE | 2023-05-23 21:55 | ED.GENADUL_ITS ---
Discharge Plan Disposition Patient Disposition: Home Discharge Details Clinical Impression: Peripheral edema Primary Care Provider: Michaela Herring ED Provider: Radha Wiseman Home Meds and New Rx's Prescriptions: Continued aspirin 81 mg tablet,delayed release (DR/EC) 81 mg PO DAILY atorvastatin 80 mg tablet 80 mg PO DAILY clopidogrel [Plavix] 75 mg tablet 75 mg PO DAILY losartan 25 mg tablet 25 mg PO DAILY metoprolol succinate 50 mg tablet extended release 24 hr 50 mg PO DAILY nicotine 21 mg/24 hr patch 24 hour 1 patch transdermal DAILY nitroglycerin 0.4 mg tablet, sublingual 0.4 mg sublingual Q5M PRN Rx Instructions: do not exceed 3 doses per episode moxifloxacin [Vigamox] 0.5 % drops 1 drp ophthalmic (eye) TID Patient Comments: right eye prednisolone acetate 1 % drops,suspension 1 drp ophthalmic (eye) QID Patient Comments: right eye Discharge Instructions Instructions: Edema (ED) Additional Instructions: Get NORIS stockings at the pharmacy and wear 1 at least on the right-hand side. You will probably need extra-large's. Elevate your leg above the level of your heart to keep the swelling down. Return to ED tomorrow for the outpatient ultrasound to rule out deep vein thrombosis or clot. Make an appointment with your primary care doc for further work-up and evaluation. Podiatry will call you for an appt. Return to ED for fever, spreading redness, any other concerns. Medical Decision Making Patient has fairly pronounced right foot swelling that extends just into his lower leg. He has no calf pain and his calf is a half a centimeter smaller than on the right-hand side. Denies injury in the past weekbut apparently has some neuropathy and difficulty feeling his feet. He has no redness in his feet or not hot to the touch so I do not think he has an infection. He does have a decent sized foreign body plantar midfoot. He initially told me that that area was not tender and then later said it did. We have referred him to podiatry. I do not think foreign body with no evidence of infection would cause this degree of swelling. We will bring him back tomorrow for an ultrasound to rule out DVT. Have advised him to elevate his leg and use NORIS stockings. If the ultrasound is negative for DVT I think he will need to follow-up with his PCP for additional work-up. Medical Records Medical records reviewed: Yes I reviewed the patient's medical records. Imaging Data Radiologic Study: Attestation: I personally reviewed and interpreted this imaging study as follows: Imaging: X-Ray (Patient's foot x-ray was positive for the nail fragment at the proximal portion of his second metatarsal, also has a tiny foreign body on the lateral aspect of his proximal fifth phalanx) Lab Data Lab results reviewed: Yes I reviewed the patient's lab results. Lab results narrative: Labs were normal with the exception of a glucose of 113. HPI General Date/Time Provider Initiated Documentation: 05/23/23 19:27 . HPI Narrative: This 47-year-old male patient presents with a chief complaint of right foot and leg swelling that began a week ago. Patient states that he woke up with it. He tells me that he has some neuropathy in his feet but denies injury or stepping on anything unusual. He is morbidly obese does not do much at home. He tells me that he has part of a nail on the bottom of his foot and its been there for some time. He has no redness or heat to the touch. Swelling goes up his leg. He has no calf pain, difficulty breathing, or chest pain. He has not tried elevating it tremendously or using NORIS stockings. He denies pain but does not have good feeling. Related Data Home Medications Medication Instructions Recorded Confirmed aspirin 81 mg tablet,delayed 81 mg PO DAILY 10/04/22 04/07/23 release atorvastatin 80 mg tablet 80 mg PO DAILY 10/04/22 04/07/23 clopidogrel 75 mg tablet (Plavix) 75 mg PO DAILY 10/04/22 04/07/23 losartan 25 mg tablet 25 mg PO DAILY 10/04/22 04/07/23 metoprolol succinate 50 mg 50 mg PO DAILY 10/04/22 04/07/23 tablet,extended release 24 hr moxifloxacin 0.5 % eye drops 1 drp ophthalmic (eye) TID 10/04/22 04/07/23 (Vigamox) nicotine 21 mg/24 hr daily 1 patch transdermal DAILY 10/04/22 04/07/23 transdermal patch nitroglycerin 0.4 mg sublingual 0.4 mg sublingual Q5M PRN 10/04/22 04/07/23 tablet prednisolone acetate 1 % eye 1 drp ophthalmic (eye) QID 10/04/22 04/07/23 drops,suspension Allergies Allergy/AdvReac Type Severity Reaction Status Date / Time Penicillins Allergy unkown Unverified 05/23/23 19:06 General Stated Complaint: Cellulitis FARIBA: 4 Review of Systems Constitutional Constitutional: Denies chills, Denies fever(s), Denies headache(s) and Denies weakness Eyes Eyes: Denies diplopia and Reports other (no redness) ENT Ears, Nose, Mouth, and Throat: Denies otalgia, Denies headache(s), Denies nasal congestion, Denies nasal discharge, Denies neck pain and Denies sore throat Cardiovascular Cardiovascular: Denies chest pain, Denies palpitations and Denies dyspnea Respiratory Respiratory: Denies cough and Denies dyspnea Gastrointestinal Gastrointestinal: Denies abdominal pain, Denies diarrhea, Denies nausea and Denies vomiting Genitourinary Genitourinary: Denies difficulty urinating and Denies dysuria Musculoskeletal Musculoskeletal: Denies myalgias, Denies muscle weakness, Denies neck pain, Reports numbness (decreased sensation in his feet) and Reports other (has BLE pedal edema, much more pronounced on the R) Integumentary/Breasts Skin/Breast: Denies change in pigmentation and Denies rash Neurologic Neurologic: Denies headache(s), Reports numbness (decreased sensation in his feet) and Denies weakness Endocrine Endocrine: Denies palpitations PFSH All Active Problems Peripheral edema (Acute) Coronary artery disease (Chronic) ACS (acute coronary syndrome) (Acute) Elevated lipase (Acute) Appendicitis (Acute) Medical History TBI (traumatic brain injury) Social History Smoking/Tobacco Use Status: Current every day Tobacco Type: cigarettes Smoking risk assessment performed?: Yes Alcohol Intake: current Alcohol Intake frequency: a few times a month Drug use: Daily Substance use type: marijuana Do you feel safe at home: Yes Do you feel safe in your relationship?: Yes Exam Const General: no acute distress, well developed, well groomed and not in acute distress Nutritional Appearance: well nourished Orientation: alert and oriented x3 [facility] Head: normocephalic and atraumatic Ears: external ears normal Mouth: oropharynx normal and moist mucous membranes Throat: posterior oropharynx normal Eyes Conjunctivae: conjunctivae normal Neck Neck: full ROM and supple Chest Chest: normal inspection of the chest Resp Effort & Inspection: normal respiratory effort Auscultation: clear to auscultation bilaterally Cardio Rate: regular rate Rhythm: regular rhythm Heart Sounds: no murmurs and no rubs GI Inspection: normal to inspection Palpation: soft, nontender and other (non distended) Auscultation: normal bowel sounds Skin General skin exam: no rashes or lesions noted and other (pink, warm, dry) Neuro General: patient alert, patient awake and patient oriented x3 Speech: speech normal Motor: other (HERNANDEZ) Sensory Exam: no sensory deficits noted Extrem General: normal to inspection, full ROM, no pedal edema (3 plus pitting edema R foot toward reeves, 1+ L foot and reeves) and other (calf 44.5 cm R, 45 cm L) Right lower extremity: foot (as noted above; no calf TTP) Psych Mental Status: mental status grossly normal Speech and Movement: speech and movement normal Affect: normal affect Course Vital Signs Vital signs: Vital Signs Temperature 36.7 C 05/23/23 19:01 Pulse 85 05/23/23 19:01 Respiratory Rate 20 05/23/23 19:01 Blood Pressure 140/80 05/23/23 19:01 Pulse Oximetry 97 05/23/23 19:01 Temperature 36.7 C 05/23/23 19:01 Temperature Source Oral 05/23/23 19:01 Pulse 85 05/23/23 19:01 Respiratory Rate 20 05/23/23 19:01 Respiratory Effort Normal 05/23/23 19:08 Blood Pressure 140/80 05/23/23 19:01 Blood Pressure Position Sitting 05/23/23 19:01 Pulse Oximetry 97 05/23/23 19:01 Oxygen Delivery Method Room Air 05/23/23 19:01 Oxygen Flow Rate 0 05/23/23 19:01 Pain Level 2 05/23/23 19:01 Lab/Test Results Lab/Test Results: Laboratory Tests Range/Units 05/23/23 05/23/23 20:00 20:00 WBC (4.4-10.8) 10^3/uL 11.02 H RBC (4.36-5.78) 10^6/uL 5.13 Hgb (13.5-17.5) g/dL 16.3 Hct (40.0-50.0) % 48.4 MCV (80-95) fL 94 MCH (27.0-33.0) pg 31.8 MCHC (32.0-36.0) % 33.7 RDW (11.8-14.1) % 12.9 Plt Count (130-400) 10^3/uL 185 MPV (8.0-11.0) fL 9.8 Sodium (136-145) mmol/L 138 Potassium (3.5-5.1) mmol/L 4.3 Chloride (98-107) mmol/L 103 Carbon Dioxide (21.0-32.0) mmol/L 27.7 Anion Gap (3-11) mmol/L 7.3 BUN (7-18) mg/dL 11 Creatinine (0.70-1.30) mg/dL 0.9 Est GFR (CKD-EPI 2020) (mL/min/1.73m2) 104.70 Glucose (74-106) mg/dL 113 H Calcium (8.5-10.1) mg/dL 9.4 Total Bilirubin (0.2-1.0) mg/dL 0.3 AST (15-37) U/L 32 ALT (16-63) U/L 57 Alkaline Phosphatase (46-116) U/L 90 Total Protein (6.4-8.2) g/dL 7.4 Albumin (3.4-5.0) g/dL 3.6
--- NOTE | 2023-05-23 22:02 | DI.VRAD_ITS ---
PROCEDURE INFORMATION: Exam: XR Right Foot Exam date and time: 05/23/2023 9:16 PM Age: 47 years old Clinical indication: Foot; Right; Patient HX: Pain and swelling for a week, no known injury TECHNIQUE: Imaging protocol: Radiologic exam of the right foot. Views: 3 or more views. COMPARISON: No relevant prior studies available. FINDINGS: Bones/joints: Normal. Soft tissues: Diffuse soft tissue swelling. Radiopaque foreign body in the plantar soft tissues measuring 1.5 cm. 2nd tiny foreign body lateral to the base of the 5th proximal phalanx. IMPRESSION: Radiopaque foreign body in the plantar soft tissues measuring 1.5 cm. 2nd tiny foreign body lateral to the base of the 5th proximal phalanx. No definite bony abnormality. Dictated and Authenticated by: Bong Gabriel MD. Ordering:MORGAN Garcia MD
[2023-05-23 22:10] VITALS: BP 148/98; PULSE 84; RESP 16; TEMP 36.7; O2SAT 98
--- NOTE | 2023-05-23 23:54 | NUR.NOTE ---
Pt placed on care management for F/U with Podiatry for foot health
== END 2023-05-23 22:06 | disposition home or self-care (01) ==
PROVIDERS: Emergency Provider Emergency Medicine; PCP Nurse Practitioner Family
DX: R60.9 Edema, unspecified; M79.671 Pain in right foot; E66.01 Morbid (severe) obesity due to excess calories
CPT/HCPCS: 80053; 85027; 99284; 73630

== ENCOUNTER 2023-06-27 22:10 | Emergency (ER) | payer MEDICARE, MEDICAID, SELFPAY ==
[2023-06-27] VITALS (19 sets, daily range): BP systolic 114–164; BP diastolic 56–83; PULSE 70–84; RESP 14–26; TEMP 36.6; O2SAT 92–98
--- NOTE | 2023-06-27 22:00 | RT.EKG_ITS ---
APPROVED REPORT Exam: Resting ECG Reason for Exam: chest pain Patient Location: E HR:81 bpm ECG Measurements Heart Rate [address] 169 P 74 QRSd 105 QRS -72 QT 362 T 62 QTc 420 Conclusion Sinus rhythm...normal P axis, V-rate 60- 99 Inferior infarct, old...Q >35mS, II III aVF Borderline ST elevation, anterolateral leads...ST >0.06mV, I aVL V2-V6 sinus rhythm, left axis, normal intervals, non ischemic; largely unchanged from ecg in october 2022
--- NOTE | 2023-06-27 22:15 | DI.RAD_ITS ---
Exam(s) XR CHEST 2V PA LATERAL EXAM: XR CHEST 2V PA LATERAL CLINICAL HISTORY: chest pain TECHNIQUE: 2D digital imaging was performed. COMPARISON: CR,XR XR PORTABLE CHEST AP from 09/16/2022 FINDINGS: HEART: Normal size. Aorta: Not dilated. PULMONARY VASCULATURE: Normal. LUNGS: Clear. PLEURAL SPACE: No pleural effusion or pneumothorax. BONE:Degenerative changes in the spine. IMPRESSION: No acute abnormality. DATA REPOSITORY: RADIATION DOSE DELIVERED:
--- NOTE | 2023-06-27 22:26 | ED.GENADUL_ITS ---
Discharge Plan Disposition Patient Disposition: Home Condition: Improving Discharge Details Chief Complaint: Chest Pain Clinical Impression: Chest pain Primary Care Provider: Merlyn Kolb ED Provider: Alexandre De Jesus Home Meds and New Rx's Prescriptions: No Action aspirin 81 mg tablet,delayed release (DR/EC) 81 mg PO DAILY atorvastatin 80 mg tablet 80 mg PO DAILY clopidogrel [Plavix] 75 mg tablet 75 mg PO DAILY losartan 25 mg tablet 25 mg PO DAILY metoprolol succinate 50 mg tablet extended release 24 hr 50 mg PO DAILY nicotine 21 mg/24 hr patch 24 hour 1 patch transdermal DAILY nitroglycerin 0.4 mg tablet, sublingual 0.4 mg sublingual Q5M PRN Rx Instructions: do not exceed 3 doses per episode moxifloxacin [Vigamox] 0.5 % drops 1 drp ophthalmic (eye) TID Patient Comments: right eye prednisolone acetate 1 % drops,suspension 1 drp ophthalmic (eye) QID Patient Comments: right eye Discharge Instructions Instructions: Chest Pain (ED) Additional Instructions: Please follow-up with your primary care physician and [facility] cardiology. Return to the emergency department for any worsening symptoms Medical Decision Making 47-year-old male history of coronary disease, no stents no open heart surgery, presents with intermittent nonexertional chest discomfort over the past couple of weeks worse over the past couple of days, associated with some diaphoresis and 1 episode of pallor, had multiple doses of aspirin today before arrival, chest pain improved upon arrival, no history of thromboembolic disease, no recent travel no recent injuries, trace edema to bilateral ankles, lungs clear bilaterally, equal pulses, hemodynamically stable hypertense on arrival now normotensive on repeat examination. EKG normal sinus rhythm left axis largely unchanged from prior EKG in October. Consider ACS versus pleurisy versus GERD versus costochondritis versus musculoskeletal discomfort versus anxiety lower suspicion for aortic pathology or PE given history and physical. Screening labs x-ray, patient is already loaded with aspirin, nitro as needed however patient has not taken any today and is chest pain-free currently. Disposition pending reassessment and results 23: 40 resting comfortably chest pain-free hemodynamically stable Labs and imaging unremarkable. We will provide follow-up with [facility] cardiology. Home care instructions and return precautions HPI General Date/Time Provider Initiated Documentation: 06/27/23 22:12 . HPI Narrative: 47-year-old male history of coronary artery disease, no history of stents or open heart surgery presents with intermittent chest pain and left arm numbness over the past couple of weeks worse over the past couple of days, has had some episodes of diaphoresis and pallor at home, has received multiple doses of aspirin 81 mg today close to 4 to 6 tablets. No nausea no vomiting no shortness of breath no history of thromboembolic disease. No leg swelling or pain. Currently asymptomatic. Discomfort can be at rest Related Data Home Medications Medication Instructions Recorded Confirmed aspirin 81 mg tablet,delayed 81 mg PO DAILY 10/04/22 06/27/23 release atorvastatin 80 mg tablet 80 mg PO DAILY 10/04/22 06/27/23 clopidogrel 75 mg tablet (Plavix) 75 mg PO DAILY 10/04/22 06/27/23 losartan 25 mg tablet 25 mg PO DAILY 10/04/22 06/27/23 metoprolol succinate 50 mg 50 mg PO DAILY 10/04/22 06/27/23 tablet,extended release 24 hr moxifloxacin 0.5 % eye drops 1 drp ophthalmic (eye) TID 10/04/22 06/27/23 (Vigamox) nicotine 21 mg/24 hr daily 1 patch transdermal DAILY 10/04/22 06/27/23 transdermal patch nitroglycerin 0.4 mg sublingual 0.4 mg sublingual Q5M PRN 10/04/22 06/27/23 tablet prednisolone acetate 1 % eye 1 drp ophthalmic (eye) QID 10/04/22 06/27/23 drops,suspension Allergies Allergy/AdvReac Type Severity Reaction Status Date / Time Penicillins Allergy unkown Unverified 06/27/23 22:19 General Stated Complaint: Chest Pain FARIBA: 2 Review of Systems Narrative: Review of Systems Constitutional: negative Eyes: negative ENT: negative Cardiovascular: Chest pain Respiratory: negative Gastrointestinal: negative : negative Musculoskeletal: negative Skin: negative Neurologic: negative Psych: negative PFSH All Active Problems (Updated 06/27/23 @ 23:41 by Alexandre De Jesus MD) Chest pain (Acute) Coronary artery disease (Chronic) ACS (acute coronary syndrome) (Acute) Elevated lipase (Acute) Appendicitis (Acute) Medical History TBI (traumatic brain injury) Social History Smoking/Tobacco Use Status: Current every day Tobacco Type: cigarettes Smoking risk assessment performed?: Yes Alcohol Intake: current Alcohol Intake frequency: a few times a month Drug use: Daily Substance use type: marijuana Do you feel safe at home: Yes Do you feel safe in your relationship?: Yes Exam Narrative Exam Narrative: Physical Examination General: alert, awake, cooperative, resting comfortably, no acute distress HEENT: normocephalic, atraumatic; PERRL, EOM intact, conjunctiva normal; no nasal discharge; moist mucous membranes, oral and pharyngeal mucosa normal, tolerating secretions Neck: supple, trachea midline; full ROM Chest: normal to inspection Respiratory: normal respiratory effort, speaking in full sentences, clear to auscultation, no wheezing, rales or rhonchi Cardiac: regular rate, regular rhythm, S1S2 intact, no murmurs rubs or gallops GI: abdomen soft, non-tender, non-distended; no palpable mass or hepatosplenomegaly Skin: no lesions, rashes or trauma appreciated Neuro: AAOx3, normal speech, moving all extremities; cranial nerves II through XII intact out of 5 strength upper and lower extremities ambulatory without assistance no ataxia Extremities: Trace edema to bilateral ankles Psych: Appropriate mood and affect Course Vital Signs Vital signs: Vital Signs Temperature 36.6 C 06/27/23 22:13 Pulse 84 06/27/23 22:13 Respiratory Rate 21 06/27/23 22:13 Blood Pressure 164/83 H 06/27/23 22:13 Pulse Oximetry 96 06/27/23 22:13 Temperature 36.6 C 06/27/23 22:13 Temperature Source Oral 06/27/23 22:13 Pulse 84 06/27/23 22:13 Respiratory Rate 14 06/27/23 22:25 Respiratory Effort Normal, Non-Labored 06/27/23 22:25 Respiratory Depth Normal 06/27/23 22:25 Respiratory Pattern Normal 06/27/23 22:25 Blood Pressure 164/83 H 06/27/23 22:13 Pulse Oximetry 96 06/27/23 22:13 Oxygen Delivery Method Room Air 06/27/23 22:13 Oxygen Flow Rate 0 06/27/23 22:13 Pain Level 0 06/27/23 22:13
[2023-06-27 22:33] LABS: Abs Immature Grans 0.03 10^3/uL (0.0-0.06); Absolute Basophil Count 0.04 10^3/uL (0.0-0.2); Absolute Eosinophil Count 0.07 10^3/uL (0.0-0.7); Absolute Lymphocyte Count 2.83 10^3/uL (1.2-3.4); Absolute Monocyte Count 0.96 10^3/uL (0.1-0.8); Absolute Neutrophil Count 6.22 10^3/uL (1.2-6.7); Basophils % 0.4; Eosinophils % 0.7; HGB 16.6 g/dL (13.5-17.5); Immature Grans % 0.3; Lymphocytes % 27.9; MCH 31.8 pg (27.0-33.0); MCHC 34.6 % (32.0-36.0); MCV 92 fL (80-95); MPV 9.8 fL (8.0-11.0); Monocytes % 9.5; Neutrophils % 61.2; Platelet Count 211 10^3/uL (130-400); RBC 5.22 10^6/uL (4.36-5.78); RDW 12.5 % (11.8-14.1); RDW-SD 42.5 fL; WBC 10.15 10^3/uL (4.4-10.8)
--- NOTE | 2023-06-27 22:35 | NUR.NOTE ---
[facility]ed [facility] for patient's medication list per Gloria charge nurse.Nursing Note:
[2023-06-27 22:48] LABS: PTT Activated 25.6 sec (23.6-32.8); Prothrombin Time 9.9 sec (9.1-11.1)
[2023-06-27 22:58] LABS: ALT 68 U/L (16-63); AST 38 U/L (15-37); Albumin 3.6 g/dL (3.4-5.0); Alkaline Phosphatase 87 U/L (46-116); Anion Gap 7.9 mmol/L (3-11); BUN 14 mg/dL (7-18); Bilirubin, Total 0.4 mg/dL (0.2-1.0); CO2 25.1 mmol/L (21.0-32.0); Chloride 104 mmol/L (98-107); Estimated GFR 92.26 (mL/min/1.73m2); Glucose 161 mg/dL (74-106); Magnesium 2.3 mg/dL (1.8-2.4); NT-proBNP 38 pg/mL (<300); Potassium 3.7 mmol/L (3.5-5.1); Sodium 137 mmol/L (136-145); Total Protein 7.1 g/dL (6.4-8.2); Troponin I < 50 ng/L (<or=60)
--- NOTE | 2023-06-27 23:13 | DI.VRAD_ITS ---
PROCEDURE INFORMATION: Exam: XR Chest Exam date and time: 06/27/2023 10:45 PM Age: 47 years old Clinical indication: Chest wall pain; Additional info: Chest pain TECHNIQUE: Imaging protocol: Radiologic exam of the chest. Views: 2 views. COMPARISON: CR XR PORTABLE CHEST AP 09/16/2022 10:05 PM FINDINGS: Lungs: Unremarkable. No consolidation. Pleural spaces: Unremarkable. No pleural effusion. No pneumothorax. Heart/Mediastinum: Unremarkable. No cardiomegaly. Bones/joints: Unremarkable. IMPRESSION: No acute findings. Dictated and Authenticated by: Librado Nogueira MD. Ordering:PGIOVANY Schroeder MD
--- NOTE | 2023-06-28 01:55 | NUR.NOTE ---
Referral to Care Management to refer patient to [facility] for f/u within a week for angina.Nursing Note:
== END 2023-06-27 23:47 | disposition home or self-care (01) ==
PROVIDERS: Emergency Provider Emergency Medicine; PCP Nurse Practitioner Family
DX: R20.0 Anesthesia of skin (principal); R07.9 Chest pain, unspecified; R06.02 Shortness of breath; I25.10 Atherosclerotic heart disease of native coronary artery without angina pectoris; I24.9 Acute ischemic heart disease, unspecified; F17.210 Nicotine dependence, cigarettes, uncomplicated; Z79.01 Long term (current) use of anticoagulants; Z79.82 Long term (current) use of aspirin; Z87.820 Personal history of traumatic brain injury
CPT/HCPCS: 36415; 80053; 93005; 99283; 71046; 83735; 83880; 84443; 84484; 85025; 85610; 85730; 93010

== ENCOUNTER 2023-11-26 05:25 | Outpatient (CLI) | payer MEDICARE, MEDICAID, SELFPAY ==
[2023-11-26] MEDS: Levalbuterol HFA 15 GM INH 4 PUFF IH (16:49)
[2023-11-26] MEDS: Inhaler, Assist Device 1 EACH MC (16:50)
--- NOTE | 2023-11-28 11:26 | W.PFT ---
Date of service: 11/26/23 Time of Service: 15:52 Pulmonary Function Test Result Indications: Dyspnea Interpretation Spirometry: There is no airflow limitation. No bronchodilator response. Impression Normal spirometry Clinical Correlation therefore is recommended.
== END 2023-11-26 05:26 | disposition home or self-care (01) ==
LOC: RT 05:25
PROVIDERS: PCP Nurse Practitioner Family; Visit Provider Student in an Organized Health Care Education/Training Program
DX: J44.9 Chronic obstructive pulmonary disease, unspecified (principal)
CPT/HCPCS: 94060

== ENCOUNTER 2023-12-10 19:28 | Emergency (ER) | payer MEDICARE, MEDICAID, SELFPAY ==
[2023-12-10] VITALS (119 sets, daily range): BP systolic 106–166; BP diastolic 54–148; PULSE 75–89; RESP 11–26; TEMP 37
--- NOTE | 2023-12-10 19:15 | RT.EKG_ITS ---
APPROVED REPORT Exam: Resting ECG Reason for Exam: chest pain Patient Location: E HR:85 bpm ECG Measurements Heart Rate 85 AXIS FL 163 P 66 QRSd 104 QRS -60 QT 366 T 48 QTc 435 Conclusion Sinus rhythm...normal P axis, V-rate 60- 99 Inferior infarct, old...Q >35mS, II III aVF sinus rhtyhm, left axis, inferior q waves
--- NOTE | 2023-12-10 19:45 | DI.CT_ITS ---
Exam(s) CT THORAX ABD/PEL CTA EXAM: CT THORAX ABD/PEL CTA CLINICAL HISTORY: chest pain radiating to back abd and legs, HTN. TECHNIQUE: Imaging Protocol: Axial computed tomography images with coronal and sagittal reformatted images were created and reviewed CONTRAST MATERIAL: Intravenous: Omnipaque 350 Contrast volume:100 ml Oral: None COMPARISON: CT CT ABDOMEN PELVIS W from 09/16/2022 FINDINGS: CHEST: AORTA: The diameter of the ascending thoracic aorta is within normal limits as is the diameter of the aortic arch and descending thoracic aorta. There is no prominent atherosclerotic disease and there is no evidence of aortic dissection nor pericardial effusion. There is also no evidence of abdominal aortic aneurysm and the celiac, SMA, and FLORENCE are patent as are the renal arteries without significan t stenosis. There is no significant stenosis at the aortic bifurcation. Common iliac arteries exhib it mild atherosclerotic plaque on the right side but no hemodynamically significant stenosis and no a neurysms of these vessels. External iliac arteries appear unremarkable as do the common femoral toi renee. LUNGS: No infiltrates nor pleural effusions. No ominous pulmonary nodules evident.. MEDIASTINUM: There is no hilar nor mediastinal adenopathy. Visualized thyroid unremarkable. CARDIAC: Heart size is normal. There is no pericardial effusion. No shift of the interventricular s eptum. ABDOMEN: There is no ascites. LIVER: There are no focal hepatic lesions nor dilatation of intrahepatic ducts. GALLBLADDER/BILIARY: No obvious gallbladder pathology. CBD is not dilated. PANCREAS: No evidence of pancreatic mass nor dilatation of the pancreatic duct. SPLEEN: Spleen is not enlarged. There are no intrasplenic lesions. Splenic and portal veins are burgos nt. ADRENALS: There are no significant adrenal masses. KIDNEYS: No cysts evident. No calculi nor hydronephrosis. No solid renal masses. ABDOMINAL AORTA: The abdominal aorta is not enlarged. LYMPH NODES: There is no retroperitoneal nor para-aortic adenopathy. No obvious mesenteric masses. ABDOMINAL WALL: No evidence of significant anterior abdominal wall hernia. GI: There is no evidence of bowel obstruction, free air, nor abscess.No ischemic appearing bowel loop seen. PELVIS: LYMPH NODES: There is no intrapelvic nor inguinal adenopathy. GI: No evidence of appendicitis.No evidence of sigmoid diverticulitis. URINARY BLADDER: No calculi nor masses evident. Mild uniform thickening of the urinary bladder is pr obably related to under distension. REPRODUCTIVE: Prostate not enlarged. OSSEOUS: No significant osseous lesions. No fractures. IMPRESSION: 1. No evidence of aortic dissection nor pericardial effusion. No evidence of aneurysmal dilatation o f the thoracic and abdominal aorta nor of the iliac arteries. 2. No significant focal findings in the chest, abdomen, and pelvis. RADIATION DOSE DELIVERED: Total DLP DATA REPOSITORY: All CT scans at this facility are submitted to the National Radiology Data Registry (NRDR) Dose Index Registry (DIR) with the [employer] (ACR). RADIATION OPTIMIZATION: All CT scans at this facility use at least one of these dose optimization te chniques: automated exposure control; mA and/or kV adjustment per patient size (includes targeted exa ms where dose is matched to clinical indication); or iterative reconstruction.
[2023-12-10] MEDS: fentaNYL 100 MCG/2 ML VIAL 50 MCG IVP (20:04)
[2023-12-10 20:13] LABS: Abs Immature Grans 0.07 10^3/uL (0.0-0.06); Absolute Basophil Count 0.03 10^3/uL (0.0-0.2); Absolute Eosinophil Count 0.05 10^3/uL (0.0-0.7); Absolute Monocyte Count 1.28 10^3/uL (0.1-0.8); Basophils % 0.2; Eosinophils % 0.4; HCT 48.4 % (40.0-50.0); HGB 16.5 g/dL (13.5-17.5); Immature Grans % 0.5; Lymphocytes % 23.4; MCH 31.9 pg (27.0-33.0); MCHC 34.1 % (32.0-36.0); MCV 94 fL (80-95); Monocytes % 9.9; Neutrophils % 65.6; Platelet Count 197 10^3/uL (130-400); RBC 5.17 10^6/uL (4.36-5.78); RDW 12.8 % (11.8-14.1); RDW-SD 44.4 fL; WBC 12.97 10^3/uL (4.4-10.8)
--- NOTE | 2023-12-10 20:13 | ED.GENADUL_ITS ---
Discharge Plan Disposition Patient Disposition: Against Medical Advice Condition: Improving Discharge Details Chief Complaint: Chest Pain Clinical Impression: Chest pain Primary Care Provider: Merlyn Kolb ED Provider: Alexandre De Jesus Home Meds and New Rx's Prescriptions: No Action aspirin 81 mg tablet,delayed release (DR/EC) 81 mg PO DAILY atorvastatin 80 mg tablet 80 mg PO DAILY clopidogrel [Plavix] 75 mg tablet 75 mg PO DAILY losartan 25 mg tablet 25 mg PO DAILY nitroglycerin 0.4 mg tablet, sublingual 0.4 mg sublingual Q5M PRN Rx Instructions: do not exceed 3 doses per episode moxifloxacin [Vigamox] 0.5 % drops 1 drp ophthalmic (eye) TID Patient Comments: right eye metoprolol succinate 50 mg tablet extended release 24 hr 25 mg PO DAILY Patient Comments: 11/24/33 per PCP notes RH albuterol sulfate [Ventolin HFA] 90 mcg/actuation HFA aerosol inhaler 2 inh inhalation Q4H PRN Discharge Instructions Instructions: Chest Pain (ED) HPI General Date/Time Provider Initiated Documentation: 12/10/23 19:38 . HPI Narrative: 48-year-old male history of coronary disease, obesity, presents with nonexertional anterior chest pain rating to bilateral flanks also down into his leg on the right side beginning approximately 2 hours ago, took aspirin before arrival, chest pain resolving. No shortness of breath no nausea vomiting or diaphoresis. Related Data Home Medications Medication Instructions Recorded Confirmed aspirin 81 mg tablet,delayed 81 mg PO DAILY 10/04/22 12/10/23 release atorvastatin 80 mg tablet 80 mg PO DAILY 10/04/22 12/10/23 clopidogrel 75 mg tablet (Plavix) 75 mg PO DAILY 10/04/22 12/10/23 losartan 25 mg tablet 25 mg PO DAILY 10/04/22 12/10/23 moxifloxacin 0.5 % eye drops 1 drp ophthalmic (eye) TID 10/04/22 12/10/23 (Vigamox) nitroglycerin 0.4 mg sublingual 0.4 mg sublingual Q5M PRN 10/04/22 12/10/23 tablet albuterol sulfate 90 mcg/actuation 2 inh inhalation Q4H PRN 11/25/23 12/10/23 aerosol inhaler (Ventolin HFA) metoprolol succinate 50 mg 25 mg PO DAILY 11/25/23 12/10/23 tablet,extended release 24 hr Allergies Allergy/AdvReac Type Severity Reaction Status Date / Time Penicillins Allergy unkown Unverified 06/27/23 22:19 General Stated Complaint: Chest Pain FARIBA: 2 Review of Systems Narrative: Review of Systems Constitutional: negative Eyes: negative ENT: negative Cardiovascular: Chest pain Respiratory: negative Gastrointestinal: negative : negative Musculoskeletal: negative Skin: negative Neurologic: negative Psych: negative Exam Narrative Exam Narrative: Physical Examination General: alert, awake, cooperative, resting comfortably, no acute distress HEENT: normocephalic, atraumatic; PERRL, EOM intact, conjunctiva normal; no nasal discharge; moist mucous membranes, oral and pharyngeal mucosa normal, tolerating secretions Neck: supple, trachea midline; full ROM Chest: normal to inspection Respiratory: normal respiratory effort, speaking in full sentences, clear to auscultation, no wheezing, rales or rhonchi Cardiac: regular rate, regular rhythm, S1S2 intact, no murmurs rubs or gallops; warm well-perfused extremities equal radial pulses bilaterally GI: abdomen soft, non-tender, non-distended; no palpable mass or hepatosplenomegaly Skin: no lesions, rashes or trauma appreciated Neuro: AAOx3, normal speech, moving all extremities Psych: Appropriate mood and affect Course Vital Signs Vital signs: Vital Signs Temperature 37.0 C 12/10/23 19:31 Pulse 89 12/10/23 19:31 Respiratory Rate 21 12/10/23 19:31 Blood Pressure 154/106 H 12/10/23 19:31 Temperature 37.0 C 12/10/23 19:31 Temperature Source Temporal Artery Scan 12/10/23 19:31 Pulse 89 12/10/23 19:31 Respiratory Rate 21 12/10/23 19:40 Respiratory Effort Short of Breath 12/10/23 19:40 Respiratory Depth Normal 12/10/23 19:40 Respiratory Pattern Normal 12/10/23 19:40 Blood Pressure 154/106 H 12/10/23 19:31 Blood Pressure Position Supine 12/10/23 19:31 Oxygen Delivery Method Room Air 12/10/23 19:31 Oxygen Flow Rate 0 12/10/23 19:31 Pain Level 5 12/10/23 19:31 Medical Decision Making 48-year-old male history of coronary disease obesity presents with nonexertional anterior chest pain radiating down flanks into right leg, noted to be hypertensive on arrival, denies history of stenting or open heart surgery. EKG normal sinus rhythm left axis consider inferior Q waves, must consider ACS versus aortic pathology such as dissection or aneurysm versus musculoskeletal chest discomfort lower suspicion for viral illness pneumothorax or PE. Screening labs CTA chest abdomen pelvis analgesia close reassessment 23: 02 patient became verbally combative with staff frustrated due to length and extent of medical workup. Does not wish to wait for further blood testing. Counseled patient at length regarding the risks of leaving including disability and . Patient and family continue to be verbally aggressive with staff. Patient to sign AGAINST MEDICAL ADVICE form. Quality:SDOH Health Related Social Needs: No Data to Display PFSH All Active Problems (Updated 12/10/23 @ 23:03 by Alexandre De Jesus MD) Chest pain (Acute) Nicotine dependence (Acute) Obesity (BMI 30.0-34.9) (Acute) Coronary artery disease (Chronic) ACS (acute coronary syndrome) (Acute) Elevated lipase (Acute) Appendicitis (Acute) Medical History TBI (traumatic brain injury) Family History (Updated 11/25/23 @ 10:28 by Daren Weaver RN) Father Hypertension Depression Diabetes record states type 1 Social History Smoking/Tobacco Use Status: Current every day Tobacco Type: cigarettes Smoking risk assessment performed?: Yes Alcohol Intake: current Alcohol Intake frequency: a few times a month Drug use: Daily Substance use type: marijuana Do you feel safe at home: Yes Do you feel safe in your relationship?: Yes
[2023-12-10 20:14] LABS: Absolute Lymphocyte Count 3.03 10^3/uL (1.2-3.4); Absolute Neutrophil Count 8.51 10^3/uL (1.2-6.7)
[2023-12-10] MEDS: Normal Saline - Diluent 50 ML VIAL IV (20:15)
[2023-12-10] MEDS: Omnipaque 350 MG/ML 100 ML BTL IJ (20:17)
[2023-12-10 20:19] LABS: PTT Activated 25.4 sec (23.6-32.8); Prothrombin Time 10.3 sec (9.1-11.1)
[2023-12-10 20:29] LABS: ALT 66 U/L (16-63); AST 38 U/L (15-37); Albumin 3.7 g/dL (3.4-5.0); Alkaline Phosphatase 77 U/L (46-116); Anion Gap 6.5 mmol/L (3-11); BUN 10 mg/dL (7-18); Bilirubin, Total 0.7 mg/dL (0.2-1.0); CO2 28.5 mmol/L (21.0-32.0); Calcium 8.9 mg/dL (8.5-10.1); Chloride 103 mmol/L (98-107); Estimated GFR 91.69 (mL/min/1.73m2); Glucose 111 mg/dL (74-106); Magnesium 2.1 mg/dL (1.8-2.4); NT-proBNP 45 pg/mL (<300); Sodium 138 mmol/L (136-145); Total Protein 7.1 g/dL (6.4-8.2); Troponin I < 50 ng/L (< or =60)
--- NOTE | 2023-12-10 21:37 | DI.VRAD_ITS ---
PROCEDURE INFORMATION: Exam: CTA Chest With Contrast CTA Abdomen and Pelvis With Contrast Exam date and time: 12/10/2023 8:18 PM Age: 48 years old Clinical indication: Chest pain radiating to back and legs, HTN TECHNIQUE: Imaging protocol: Computed tomographic angiography of the chest with contrast. Exam focused on the arteries. Computed tomographic angiography of the abdomen and pelvis with contrast. Exam focused on the arteries. 3D rendering (Not supervised by radiologist): MIP and/or 3D reconstructed images were created by the technologist. Radiation optimization: All CT scans at this facility use at least one of these dose optimization techniques: automated exposure control; mA and/or kV adjustment per patient size (includes targeted exams where dose is matched to clinical indication); or iterative reconstruction. Contrast material: OMNIPAQUE 350; Contrast volume: 100 ml; Contrast route: INTRAVENOUS (IV); COMPARISON: CR XR CHEST 2V PA LATERAL 06/27/2023 10:45 PM FINDINGS: VASCULATURE: Pulmonary arteries: No evidence of acute pulmonary embolism. Aorta: Normal caliber thoracic / abdominal aorta without dissection or aneurysm. Celiac trunk and mesenteric arteries: No occlusion or significant stenosis. Renal arteries: No occlusion or significant stenosis. Right iliac arteries: No occlusion or significant stenosis. Left iliac arteries: No occlusion or significant stenosis. CHEST: Lungs: No alveolar or ground glass infiltrate. Pleural spaces: No pleural fluid collection. No pneumothorax. Heart: No right ventricular strain. No pericardial effusion. ABDOMEN AND PELVIS: Liver: No mass. Gallbladder and bile ducts: Unremarkable. No calcified stones. No ductal dilation. Pancreas: Unremarkable. No mass. No ductal dilation. Spleen: Unremarkable. No splenomegaly. Adrenal glands: Unremarkable. No mass. Kidneys and ureters: No hydronephrosis. No calcified renal or ureteral stones. No perinephric stranding or perinephric fluid. Stomach and bowel: Unremarkable. No obstruction. No mucosal thickening. Appendix: No evidence of appendicitis. Intraperitoneal space: No free air. No significant fluid collection. Urinary bladder: Unremarkable. No mass. Reproductive: Unremarkable as visualized. Lymph nodes: No enlarged lymph nodes. Bones/joints: Spinal degenerative changes. Soft tissues: Unremarkable. IMPRESSION: 1. No evidence of acute pulmonary embolism. 2. No pulmonary infiltrate or pleural fluid collection. 3. No acute intra-abdominal or pelvic process. 4. Normal caliber thoracic / abdominal aorta without dissection or aneurysm. Dictated and Authenticated by: Moses Salazar MD. Ordering:SHARAN Schroeder MD
--- NOTE | 2023-12-10 23:00 | NUR.NOTE ---
Went to give draw repeat (4 hour) troponin on this patient. Pt became biligerant and began to yell at me that I should have taken the lab work at the beginning. I attempted to explain to the patient that the repeat troponin has to be taken 4 hours after the initial draw, and the initial draw was taken when he arrived. Pt began to yell at me and became escalated. His significant other began saying that we are slow, and this is why they don't come here. She began to explain that she would be calling the hospital to file a complaint and that they should have gone to [place]. I attempted to explain that the labs are time-intervalled and that they would take the same amount of time. The patient began complaining that hes been here for 6 hours. Pt has actually been here for just under four hours. They both began to raise their voices and threaten to file a complaint and that they have dogs at home and he hasn't eaten dinner. Dr. De Jesus spoke with the pt and informed them that we should run the final troponin, but if they did not want to stay and consent to treatment, he could not hold them. The pt yealled run it! Troponin was sent to the lab. While waiting, the pt and visitor continued to be loud, aggressive and beligerant. Charge nurse went to close the pt's door and had an exchange and informed them that there are many people in this ED and that they needed to have the door closed if they were going to be disruptive. After approximately 10 minutes, the pt yelled that he wanted to leave and wanted his IV out. RN LB removed IV at pts request. Dr. De Jesus explained the risks of leaving AMA and advised the pt to stay and wait for second troponin to come back. The pt refused, and left AMA while yelling at staff. Pt was escorted by security due to aggressiveness and threatening. SQSS filed by charge nurse. Luis Weaver, BSN, RN
[2023-12-10 23:15] LABS: Troponin I < 50 ng/L (< or =60)
== END 2023-12-10 23:02 | disposition left against medical advice (07) ==
PROVIDERS: Emergency Provider Emergency Medicine; PCP Nurse Practitioner Family
DX: R07.9 Chest pain, unspecified (principal); R20.0 Anesthesia of skin; I25.10 Atherosclerotic heart disease of native coronary artery without angina pectoris; Z79.02 Long term (current) use of antithrombotics/antiplatelets; Z79.82 Long term (current) use of aspirin; Z53.29 Procedure and treatment not carried out because of patient's decision for other reasons; F17.210 Nicotine dependence, cigarettes, uncomplicated
CPT/HCPCS: 71275; 80053; 93005; 96374; 99285; 74174; 83735; 83880; 84484; 85025; 85610; 85730; 93010; 99284; J3010; J3490

== ENCOUNTER → 2023-12-12 13:21 | Outpatient (BNVA) | payer MEDICARE, MEDICAID, SELFPAY | PROVIDERS: PCP Nurse Practitioner Family; Referring Provider Nurse Practitioner Family; Visit Provider Internal Medicine Cardiovascular Disease | DX: I25.10 Atherosclerotic heart disease of native coronary artery without angina pectoris (principal) | CPT/HCPCS: 99213 ==

== ENCOUNTER 2025-01-17 10:59 | Emergency (ER) | payer MEDICARE, MEDICAID, SELFPAY ==
[2025-01-17 11:06] VITALS: BP 138/84; PULSE 78; RESP 20; TEMP 37.1; O2SAT 97
[2025-01-17 11:09] VITALS: BP 138/84; PULSE 78; RESP 20; TEMP 37.1; O2SAT 97
--- NOTE | 2025-01-17 11:52 | ED.GENADUL_ITS ---
Discharge Plan Disposition Patient Disposition: Home Condition: Stable Discharge Details Clinical Impression: Abrasion of ear canal Primary Care Provider: Unknown,Unknown ED Provider: Estefanía Hill Home Meds and New Rx's Prescriptions: Continued aspirin 81 mg tablet,delayed release (DR/EC) 81 mg PO DAILY atorvastatin 80 mg tablet 80 mg PO DAILY clopidogrel [Plavix] 75 mg tablet 75 mg PO DAILY losartan 25 mg tablet 25 mg PO DAILY nitroglycerin 0.4 mg tablet, sublingual 0.4 mg sublingual Q5M PRN Rx Instructions: do not exceed 3 doses per episode metoprolol succinate 50 mg tablet extended release 24 hr 25 mg PO DAILY Patient Comments: 11/24/33 per PCP notes RH albuterol sulfate [Ventolin HFA] 90 mcg/actuation HFA aerosol inhaler 2 inh inhalation Q4H PRN Discharge Instructions Instructions: Abrasions ED Additional Instructions: At this time it does appear you have a small abrasion noted to the inside of your ear canal I do suspect that this is where the bleeding is coming from. There is no active bleeding at this time. The eardrum appears intact does not not have any signs of infection or perforation. Please do not stick anything inside your ear. If it begins bleeding again you may dab it with a cotton ball or a piece of gauze. Hold pressure for approximately 10 to 15 minutes if it does not stop please return to the ER. Follow up with primary care provider in 3-5 days. Return to ED sooner if any worsening or concerns. Thank you for allowing us to care for you today. Referrals: Primary Care Provider [Outside] - 5 days Discharge Data Discharge Date/Time-TO BE ENTERED AT DEPARTURE: 01/17/25 13:30 HPI General Mode of arrival: ambulatory . Date/Time Provider Initiated Documentation: 01/17/25 11:09 . Limitations to Documentation: no limitations . Information obtained by: patient, RN notes reviewed and old records reviewed . HPI Narrative: 49-year-old male presents to the ER with a chief complaint of bleeding to his left ear which he reports that he was sleeping on the couch and woke up with dried blood in his left ear canal. Denies any ear pain, denies any known injuries or trauma. Denies sticking anything in his ear. He does take clopidogrel and 81 mg of aspirin. Does have a history of coronary artery disease, hypertension, traumatic brain injury. He denies any headache or any pain anywhere. Related Data Home Medications ?Medication ?Instructions ?Recorded ?Confirmed aspirin 81 mg tablet,delayed 81 mg PO DAILY 10/04/22 12/12/23 release atorvastatin 80 mg tablet 80 mg PO DAILY 10/04/22 12/12/23 clopidogrel 75 mg tablet (Plavix) 75 mg PO DAILY 10/04/22 12/12/23 losartan 25 mg tablet 25 mg PO DAILY 10/04/22 12/12/23 nitroglycerin 0.4 mg sublingual 0.4 mg sublingual Q5M PRN 10/04/22 12/12/23 tablet albuterol sulfate 90 mcg/actuation 2 inh inhalation Q4H PRN 11/25/23 12/12/23 aerosol inhaler (Ventolin HFA) metoprolol succinate 50 mg 25 mg PO DAILY 11/25/23 12/12/23 tablet,extended release 24 hr Allergies Allergy/AdvReac Type Severity Reaction Status Date / Time Penicillins Allergy unkown Unverified 01/17/25 11:10 General Stated Complaint: EarProblem FARIBA: 4 Review of Systems ENT Ears, Nose, Mouth, and Throat: Reports as per HPI and Reports ear discharge Exam HENMT Ears: hearing grossly normal bilaterally, TM normal on the left and EAC abnormal other (Bleeding and dried blood small abrasion noted to approximately 5/6:00); no foreign body (Nonvisualized) General nose exam: external nose normal Face and sinus: normal facial exam Course Vital Signs Vital signs: Vital Signs Temperature 37.1 C 01/17/25 11:06 Pulse 78 01/17/25 11:06 Respiratory Rate 20 01/17/25 11:06 Blood Pressure 138/84 01/17/25 11:06 Pulse Oximetry 97 01/17/25 11:06 Temperature 37.1 C 01/17/25 11:09 Pulse 78 01/17/25 11:09 Respiratory Rate 20 01/17/25 11:09 Blood Pressure 138/84 01/17/25 11:09 Blood Pressure Position Sitting 01/17/25 11:09 Pulse Oximetry 97 01/17/25 11:09 Oxygen Delivery Method Room Air 01/17/25 11:09 Oxygen Flow Rate 0 01/17/25 11:09 Medical Decision Making 49-year-old male presents to the ER with a chief complaint of bleeding to his left ear which he reports that he was sleeping on the couch and woke up with dried blood in his left ear canal. Denies any ear pain, denies any known injuries or trauma. Denies sticking anything in his ear. He does take clopidogrel and 81 mg of aspirin. Does have a history of coronary artery disease, hypertension, traumatic brain injury. He denies any headache or any pain anywhere. On examination the TM is within normal limits no bulging erythema or perforation visualized, he does have a small area in his ear canal that appears to have a small scrape on it. There is surrounding dried blood noted. This was cleaned with a Q-tip and saline. No active bleeding noted. Given home care and discharge instructions. Instructed not to put anything into the ear canal to apply pressure or packing if bleeding resumes. No bleeding present upon discharge from department. This text was generated using [employer] system, please disregard any oddities of phrase or misspellings. Quality:SDOH Health Related Social Needs: No Data to Display PFSH All Active Problems (Updated 01/17/25 @ 11:57 by Estefanía Hill NP) Abrasion of ear canal (Acute) Nicotine dependence (Acute) Obesity (BMI 30.0-34.9) (Acute) Coronary artery disease (Chronic) ACS (acute coronary syndrome) (Acute) Elevated lipase (Acute) Appendicitis (Acute) Medical History TBI (traumatic brain injury) Family History Father Hypertension Depression Diabetes record states type 1 Social History Smoking/Tobacco Use Status: Current every day Tobacco Type: cigarettes Smoking risk assessment performed?: Yes Alcohol Intake: current Alcohol Intake frequency: a few times a month Drug use: Occasionally Substance use type: marijuana Do you feel safe at home: Yes Do you feel safe in your relationship?: Yes
== END 2025-01-17 13:30 | disposition home or self-care (01) ==
PROVIDERS: Emergency Provider Registered Nurse Emergency
DX: S00.412A Abrasion of left ear, initial encounter (principal); I25.10 Atherosclerotic heart disease of native coronary artery without angina pectoris; I10 Essential (primary) hypertension; F17.210 Nicotine dependence, cigarettes, uncomplicated; Z79.02 Long term (current) use of antithrombotics/antiplatelets; Z79.82 Long term (current) use of aspirin; X58.XXXA Exposure to other specified factors, initial encounter
CPT/HCPCS: 99283

== ENCOUNTER 2025-03-30 12:41 | Outpatient (REF) | payer MEDICARE, MEDICAID, SELFPAY ==
[2025-03-30 15:46] LABS: HCT 47.6 % (40.0-50.0); HGB 16.3 g/dL (13.5-17.5); MCH 31.7 pg (27.0-33.0); MCHC 34.2 % (32.0-36.0); MCV 92 fL (80-95); MPV 10.8 fL (8.0-11.0); Platelet Count 167 10^3/uL (130-400); RBC 5.15 10^6/uL (4.36-5.78); RDW 12.4 % (11.8-14.1); RDW-SD 42.5 fL; WBC 9.60 10^3/uL (4.4-10.8)
[2025-03-30 16:18] LABS: ALT 56 U/L (16-63); AST 38 U/L (15-37); Albumin 3.6 g/dL (3.4-5.0); Alkaline Phosphatase 77 U/L (46-116); Anion Gap 10.3 mmol/L (3-11); BUN 16 mg/dL (7-18); Bilirubin, Total 0.3 mg/dL (0.2-1.0); CO2 24.7 mmol/L (21.0-32.0); Calcium 8.9 mg/dL (8.5-10.1); Chloride 105 mmol/L (98-107); Estimated GFR 107.15 (mL/min/1.73m2); Glucose 148 mg/dL (74-106); Potassium 3.9 mmol/L (3.5-5.1); Sodium 140 mmol/L (136-145); TSH (W/Ref FT4) 1.44 uIU/mL (0.36-3.74); Total Protein 6.8 g/dL (6.4-8.2)
== END 2025-03-30 12:42 | disposition home or self-care (01) ==
LOC: NCHCN 12:41
PROVIDERS: PCP Nurse Practitioner Family; Visit Provider Nurse Practitioner Family
DX: R63.4 Abnormal weight loss (principal)
CPT/HCPCS: 80053; 85027; 84443

== ENCOUNTER 2025-04-09 13:10 | Outpatient (CLI) | payer MEDICARE, MEDICAID, SELFPAY ==
--- NOTE | 2025-04-09 13:15 | RT.EKG_ITS ---
APPROVED REPORT Exam: Resting ECG Reason for Exam: chest pain hx NSTEMI Patient Location: O HR:85 bpm ECG Measurements Heart Rate 85 AXIS SC 158 P 67 QRSd 104 QRS -61 QT 377 T 14 QTc 449 Conclusion Sinus rhythm...normal P axis, V-rate 50- 99 Paired ventricular premature complexes...sequence of 2 V complexes Inferior infarct, old...Q >35mS, II III aVF
== END 2025-04-09 13:11 | disposition home or self-care (01) ==
LOC: DI.CARD 13:18
PROVIDERS: PCP Nurse Practitioner Family; Referring Provider Nurse Practitioner Family; Visit Provider Internal Medicine Cardiovascular Disease
DX: R07.9 Chest pain, unspecified (principal); I21.4 Non-ST elevation (NSTEMI) myocardial infarction; I49.3 Ventricular premature depolarization
CPT/HCPCS: 93010

== ENCOUNTER → 2025-04-09 13:10 | Outpatient (BNVA) | payer MEDICARE, MEDICAID, SELFPAY | PROVIDERS: PCP Nurse Practitioner Family; Referring Provider Nurse Practitioner Family; Visit Provider Internal Medicine Cardiovascular Disease | DX: I25.10 Atherosclerotic heart disease of native coronary artery without angina pectoris (principal); I21.4 Non-ST elevation (NSTEMI) myocardial infarction; R07.9 Chest pain, unspecified | CPT/HCPCS: 99214; 93005 ==

== ENCOUNTER 2025-04-09 17:11 | Emergency (ER) | payer MEDICARE, MEDICAID, SELFPAY ==
[2025-04-09 17:13] VITALS: BP 165/60; PULSE 90; RESP 18; TEMP 37.1; O2SAT 95
[2025-04-09] MEDS: Acetaminophen 325 MG TAB 650 MG PO (17:39)
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
== END 2025-04-09 18:02 | disposition home or self-care (01) ==
PROVIDERS: Emergency Provider Nurse Practitioner Family; PCP Nurse Practitioner Family
DX: T22.211A Burn of second degree of right forearm, initial encounter (principal)
CPT/HCPCS: 99283 ×2; 93005; 99214

== ENCOUNTER 2025-04-30 15:44 | Outpatient (REF) | payer MEDICARE, MEDICAID, SELFPAY ==
[2025-04-30 21:36] LABS: Hemoglobin A1C 5.6 % (<5.7)
[2025-04-30 21:39] LABS: Calculated LDL 56 mg/dL (<100); Cholesterol 130 mg/dL (<200); HDL Cholesterol 31 mg/dL (>or=40); Triglyceride 218 mg/dL (<150)
== END 2025-04-30 15:45 | disposition home or self-care (01) ==
LOC: NCHCN 15:44
PROVIDERS: PCP Nurse Practitioner Family; Visit Provider Student in an Organized Health Care Education/Training Program
DX: E78.5 Hyperlipidemia, unspecified (principal); Z13.1 Encounter for screening for diabetes mellitus
CPT/HCPCS: 80061; 83036

== ENCOUNTER 2025-06-15 11:44 | Observation (INO) | payer MEDICARE, MEDICAID, SELFPAY ==
[2025-06-15 11:48] VITALS: BP 150/76; PULSE 92; RESP 18; TEMP 36.8; O2SAT 97
--- NOTE | 2025-06-15 11:49 | W.ED.GENAD ---
Discharge Plan Discharge Details Chief Complaint: FlankPain Clinical Impression: Acute appendicitis Admit Date/Time: 06/15/25 16:24 Admit Provider: Estela Hoover Attending Provider: Estela Hoover Primary Care Provider: JAYLA BREEN ED Provider: Paras Núñez Discharge Data Discharge Date/Time-TO BE ENTERED AT DEPARTURE: 06/15/25 17:38 HPI General Date/Time Provider Initiated Documentation: 06/15/25 11:49. HPI Narrative: MDM This is an uncomfortable appearing normothermic and not tachycardic 49-year-old male with right lower quadrant tenderness rebound tenderness concerning for appendicitis versus perforated perforated viscus for which patient will undergo emergent CT scan. No pain out of proportion to suggest necrotizing soft tissue infection. No rash to abdomen to suggest zoster. No left lower quadrant tenderness to suggest diverticulitis. Ureterolithiasis is certainly also on differential. No chest pain to suggest ACS I did not obtain ECG. Patient has no history of AAA to suggest increased risk for ruptured AAA. No dysuria nor frequency to suggest UTI. No testicular pain to suggest torsion. No obvious hernias. Patient is not cachectic to suggest increased risk for SMA syndrome. My suspicion was low for mesenteric ischemia given patient's abdominal tenderness. I considered sepsis however will defer broad-spectrum antibiotics and blood cultures at this point. No shortness of breath and given right lower quadrant tenderness I am not suspicious for referred pain from PE. Will consider antibiotics based on CT results. 1:34 PM Urinalysis nitrite leuk esterase negative?test not consistent with UTI. Very mild hypocalcemia. No MICHELLE. No other acute electrolyte abnormalities. CBC with marked new leukocytosis. No anemia. No thrombocytopenia. 2:[address] concerning for appendicitis. I spoke with Dr. Hoover from general surgery. She and I [place] the [place] [facility] [place]. It seems that he was transferred in the setting of concern for NSTEMI complicated by appendicitis. He was not seen by general surgery. He had a CT second read [place] [facility] [place] equivocal findings for appendicitis. He was treated nonoperatively and discharged. Today he had an ECG in the emergency department. He is not having chest pain. ECG obtained in the event that he was going to be hospitalized for surgery. He had sinus rhythm at a rate of 79 with frequent PVCs in a pattern of ventricular bigeminy. His interventricular conduction delay. His UT and QTc are within normal limits. He has no acute injury pattern. Compared to prior dated earlier this year frequent PVCs are similar. 3:06 PM I spoke again with Dr. Hoover. She reviewed the patient's CT. She plans to admit the patient on IV antibiotics. Patient was PEN-FAST negative so initiated course of piperacillin/tazobactam in the emergency department. 06/16 I followed up with Dr. Hoover. Patient tolerated pip-tazo well. As a result I removed PCN from his allergy list. HPI The patient presents to the emergency department for right-sided pain. The patient has been experiencing right-sided pain for a few days, the cause of which is unknown. The pain intensifies when lying down and subsides when sitting up. It also worsens during coughing episodes. Reports no history of kidney stones, fevers, nausea, vomiting, or rashes. No history of abdominal surgeries. Additionally, reports no chest pain or breathing difficulties. Exam General: Uncomfortable-appearing in no acute distress speaking in complete sentences. Head: Normocephalic, atraumatic. Eye: Extraocular eye movements intact. No conjunctival injection. No scleral icterus. Ear, nose, mouth, throat: Grossly normal inspection. Normal voice, handling secretions normally. Neck: Trachea midline. Cardiovascular: Well-perfused distal extremities. Regular rate and rhythm Respiratory: Nonlabored respiration. Clear lungs. Gastrointestinal: Right lower quadrant tenderness with rebound and involuntary guarding. No rash to abdomen. No obvious hernias. Musculoskeletal: No edema. Moving all 4 extremities spontaneously. Skin: Normal for age and race, grossly normal temperature and turgor. No acute rash. Neurologic: Alert and appropriate, no apparent acute deficits. Psychiatric: Mood and manner are appropriate. Grooming and personal hygiene are appropriate. Related Data Home Medications ?Medication ?Instructions ?Recorded ?Confirmed aspirin 81 mg tablet,delayed 81 mg PO DAILY 10/04/22 04/09/25 release atorvastatin 80 mg tablet 80 mg PO DAILY 10/04/22 04/09/25 clopidogrel 75 mg tablet (Plavix) 75 mg PO DAILY 10/04/22 04/09/25 losartan 25 mg tablet 25 mg PO DAILY 10/04/22 04/09/25 nitroglycerin 0.4 mg sublingual 0.4 mg sublingual Q5M PRN 10/04/22 04/09/25 tablet albuterol sulfate 90 mcg/actuation 2 inh inhalation Q4H PRN 11/25/23 04/09/25 aerosol inhaler (Ventolin HFA) metoprolol succinate 50 mg 25 mg PO DAILY 11/25/23 04/09/25 tablet,extended release 24 hr umeclidinium 62.5 mcg/actuation 1 inh inhalation DAILY 03/30/25 04/09/25 blister powder for inhalation (Incruse Ellipta) PFSH All Active Problems (Updated 06/15/25 @ 14:20 by Paras Núñez MD) Acute appendicitis (Acute) Snoring (Acute) Dyspnea (Acute) BMI 30.0-30.9,adult (Acute) Nicotine dependence (Acute) Obesity (BMI 30.0-34.9) (Acute) Coronary artery disease (Chronic) ACS (acute coronary syndrome) (Acute) Elevated lipase (Acute) Appendicitis (Acute) Medical History Serous retinal detachment of both eyes NSTEMI (non-ST elevated myocardial infarction) [place] [facility] CAD for medical managment RH TBI (traumatic brain injury) Surgical History History of percutaneous coronary intervention Family History Father Hypertension Depression Diabetes record states type 1 Sister Depression Aunt Diabetes Maternal Grandmother Diabetes Mother Diabetes Social History (System 06/15/25 @ 13:11 by Karina Carpenter) Smoking/Tobacco Use Status: Never Smoking risk assessment performed?: Yes Alcohol Intake: never Drug use: Daily Substance use type: marijuana Housing: house Do you feel safe at home: Yes Do you feel safe in your relationship?: Yes
--- NOTE | 2025-06-15 12:30 | DI.CT_ITS ---
Exam(s) CT ABDOMEN PELVIS W EXAM: CT ABDOMEN PELVIS W CLINICAL HISTORY: Right lower quadrant pain. TECHNIQUE: Imaging Protocol: Axial computed tomography images with coronal and sagittal reformatted images were created and reviewed CONTRAST MATERIAL: Intravenous: Omnipaque 350 Contrast volume:100 ml Oral: no COMPARISON: No exams were available for comparison FINDINGS: ABDOMEN and PELVIS: Lung Bases: No acute findings. Liver: Normal density. No suspicious mass. Gallbladder and biliary tract: No radiodense calculus. No wall thickening or pericholecystic fluid. No biliary dilation. Pancreas: Normal density. No abnormal calcifications or inflammatory process. No evidence of mass. Spleen: Normal. Kidneys: Normal size, contour and axis. No radiodense stones. No obstructive uropathy. No suspicious masses seen. Adrenal glands: No masses seen. Vasculature: Abdominal aorta non-dilated. Soft tissues: Unremarkable. Bladder: No gross wall thickening. No calculi.No focal mass. Bowel: No obstruction. No bowel wall thickening. The appendix is dilated and shows surrounding stranding in the fat. There is a small amount of surrounding fluid but no evidence of abscess or perforation. Peritoneal cavity: Small amount of fluid in the low pelvis. No focal collection. No free air. Bones: Unremarkable for age. Reproductive organs: Unremarkable. Lymph nodes: No pathologically enlarged lymph nodes. IMPRESSION:: Findings consistent with acute appendicitis. Small amount of fluid but no perforation or abscess. Things called to Dr. Núñez of the emergency department RADIATION DOSE DELIVERED: 765.62mGy.cm Total DLP DATA REPOSITORY: All CT scans at this facility are submitted to the National Radiology Data Registry (NRDR) Dose Index Registry (DIR) with the [employer] (ACR). RADIATION OPTIMIZATION: All CT scans at this facility use at least one of these dose optimization techniques: automated exposure control; mA and/or kV adjustment per patient size (includes targeted exams where dose is matched to clinical indication); or iterative reconstruction.
[2025-06-15 12:38] LABS: Glucose Negative (Negative)
[2025-06-15] MEDS: Normal Saline 1,000 ML 1000 ML IV (12:58)
[2025-06-15] MEDS: fentaNYL 100 MCG/2 ML VIAL 75 MCG IVP (12:58)
[2025-06-15 13:03] LABS: Abs Immature Grans 0.08 10^3/uL (0.0-0.06); HCT 45.0 % (40.0-50.0); HGB 15.6 g/dL (13.5-17.5); Immature Grans % 0.5 %; MCH 32.6 pg (27.0-33.0); MCHC 34.7 % (32.0-36.0); MCV 94 fL (80-95); MPV 9.8 fL (8.0-11.0); Platelet Count 185 10^3/uL (130-400); RBC 4.79 10^6/uL (4.36-5.78); RDW 12.6 % (11.8-14.1); RDW-SD 43.8 fL; WBC 16.61 10^3/uL (4.4-10.8)
[2025-06-15 13:10] LABS: Anion Gap 8.4 mmol/L (3-11); BUN 18 mg/dL (7-18); CO2 24.6 mmol/L (21.0-32.0); Calcium 8.4 mg/dL (8.5-10.1); Chloride 105 mmol/L (98-107); Estimated GFR 107.15 (mL/min/1.73m2); Glucose 96 mg/dL (74-106); Potassium 4.0 mmol/L (3.5-5.1); Sodium 138 mmol/L (136-145)
[2025-06-15 13:27] LABS: RBC Morphology Normal
[2025-06-15] MEDS: Omnipaque 350 MG/ML 100 ML BTL IJ (13:36)
[2025-06-15] MEDS: Normal Saline - Diluent 50 ML VIAL IJ (13:37)
--- NOTE | 2025-06-15 14:00 | RT.EKG_ITS ---
APPROVED REPORT Exam: Resting ECG Reason for Exam: Preop Patient Location: E HR:79 bpm ECG Measurements Heart Rate 79 AXIS AZ 144 P 43 QRSd 104 QRS -64 QT 381 T -4 QTc 437 Conclusion Sinus rhythm...normal P axis, V-rate 60- 99 Ventricular bigeminy...bigeminy string>4 w/ V complexes Inferior infarct, old...Q >35mS, II III aVF No Occlusion NE
[2025-06-15] MEDS: PIPERACILLIN/TAZO 3.375 GM in Normal Saline 50 ML IVPB ×2 (14:33→23:48)
[2025-06-15] MEDS: MORPHine 4 MG/ML SYR IVP (14:33)
[2025-06-15 15:07] VITALS: BP 159/85; PULSE 85; RESP 18; TEMP 36.8; O2SAT 97
[2025-06-15] MEDS: ACETAMINOPHEN 1,000 MG/100 ML BAG 400 MG IVPB (16:35)
--- NOTE | 2025-06-15 16:37 | W.PM.HP.N ---
Date of service: 06/15/25 Time of Service: 16:37 Assessment and Plan Assessment and plan (1) Acute appendicitis: Status: Acute Assessment and plan: Patient is a 49-year-old male who presents with 4 to 5 days of worsening right lower quadrant pain. He denies any other associated symptoms including nausea, vomiting, fevers, chills, chest pain, shortness of breath. He has a significant medical history for coronary artery disease and prior NSTEMI and remains on aspirin and Plavix at this time. He also has a history of potentially previous acute appendicitis for which he received a short course of antibiotics. On presentation to the ED today he is afebrile and hemodynamically stable. He does on exam have tenderness to palpation in the right lower quadrant but no evidence of diffuse peritonitis or rebound tenderness. His imaging was reviewed extensively and while there is some fat stranding and concern for inflammation in the right lower quadrant the appendix is hard to visualize. The radiology report is concerning for acute appendicitis. These findings were discussed with him in the emergency department today as well as options for a laparoscopic appendectomy versus antibiotic management. He states ultimately that he would like to go home and does not want to undergo surgery. Given the duration of his symptoms and imaging findings including the difficulty visualizing the appendix as well as his dual antiplatelet therapy an operative intervention is higher risk at this point and the decision was made to proceed with antibiotic management. It was discussed with him that sometimes antibiotic management is not successful or there is a development of an abscess requiring further procedures. He will be admitted to the surgery service with IV antibiotics, n.p.o. and maintenance IV fluids. Will continue to monitor his abdominal exam closely. (2) Coronary artery disease: Status: Chronic History of Present Illness Narrative: Patient is a 49-year-old male who presents with 4 to 5 days of ongoing right lower quadrant pain. The history is difficult to obtain as he is a poor historian. He states that he had right sided pain that started a couple of days ago and worsened over the past couple days so he presented to the ED for further evaluation. He denies any significant related symptoms. He reports no associated fevers, chills, nausea, or vomiting. His appetite remains unaffected. He has no history of abdominal surgeries. He suffered a heart attack 1 to 2 years ago and is currently on blood thinners, including baby aspirin and clopidogrel. He reports no chest pain or shortness of breath during physical activity or currently. Upon further chart review it does appear as though he had potentially an episode of acute appendicitis and an NSTEMI in 2022 for which she was transferred to [facility] for further evaluation. It seems as though he was treated with a short course of antibiotics and improved significantly and there was no further follow-up. Per his report and chart review it seems as though he has continued his Plavix since this time. Review of Systems Constitutional Constitutional: Denies chills, Denies fatigue, Denies fever(s), Denies headache(s) and Denies weakness ENT Ears, Nose, Mouth, and Throat: Denies dizziness, Denies headache(s), Denies nasal congestion and Denies sore throat Cardiovascular Cardiovascular: Denies chest pain and Denies dyspnea Respiratory Respiratory: Denies dyspnea Gastrointestinal Gastrointestinal: Denies nausea and Denies vomiting Genitourinary Genitourinary: Denies dysuria Musculoskeletal Musculoskeletal: Denies arthralgias, Denies muscle weakness and Denies numbness Integumentary/Breasts Skin/Breast: Denies new lesions and Denies rash Neurologic Neurologic: Denies dizziness, Denies headache(s), Denies numbness and Denies weakness Endocrine Endocrine: Denies fatigue PFSH All Active Problems (Updated 06/15/25 @ 14:20 by Paras Núñez MD) Acute appendicitis (Acute) Snoring (Acute) Dyspnea (Acute) BMI 30.0-30.9,adult (Acute) Nicotine dependence (Acute) Obesity (BMI 30.0-34.9) (Acute) Coronary artery disease (Chronic) ACS (acute coronary syndrome) (Acute) Elevated lipase (Acute) Appendicitis (Acute) Medical History Serous retinal detachment of both eyes NSTEMI (non-ST elevated myocardial infarction) [place] [facility] [place] CAD for medical managment RH TBI (traumatic brain injury) Surgical History History of percutaneous coronary intervention Family History Father Hypertension Depression Diabetes record states type 1 Sister Depression Aunt Diabetes Maternal Grandmother Diabetes Mother Diabetes Social History (System 06/15/25 @ 13:11 by Karina Carpenter) Smoking/Tobacco Use Status: Never Smoking risk assessment performed?: Yes Alcohol Intake: never Drug use: Daily Substance use type: marijuana Housing: apartment Do you feel safe at home: Yes Do you feel safe in your relationship?: Yes Meds Allergies and Home Medications Allergies Allergy/AdvReac Type Severity Reaction Status Date / Time Penicillins Allergy unkown Unverified 06/15/25 13:11 Home Medications ?Medication ?Instructions ?Recorded ?Confirmed ?Type aspirin 81 mg tablet,delayed 81 mg PO DAILY 10/04/22 04/09/25 History release atorvastatin 80 mg tablet 80 mg PO DAILY 10/04/22 04/09/25 History clopidogrel 75 mg tablet (Plavix) 75 mg PO DAILY 10/04/22 04/09/25 History losartan 25 mg tablet 25 mg PO DAILY 10/04/22 04/09/25 History nitroglycerin 0.4 mg sublingual 0.4 mg sublingual Q5M PRN 10/04/22 04/09/25 History tablet albuterol sulfate 90 mcg/actuation 2 inh inhalation Q4H PRN 11/25/23 04/09/25 History aerosol inhaler (Ventolin HFA) metoprolol succinate 50 mg 25 mg PO DAILY 11/25/23 04/09/25 History tablet,extended release 24 hr umeclidinium 62.5 mcg/actuation 1 inh inhalation DAILY 03/30/25 04/09/25 History blister powder for inhalation (Incruse Ellipta) Exam Narrative Exam Narrative: General: Well appearing, no acute distress. Skin: Good turgor, no visible rashes or lesion HEENT: Normocephalic, atraumatic CV: Regular rate and rhythm Lungs: Bilateral equal chest rise, non-labored breathing Abdomen: Soft, non-distended, no masses or organomegaly, tenderness to palpation in the RLQ with no rebound or guarding, Extremities: Warm, well perfused Neurologic: No focal deficits Psychiatric: Alert and oriented, normal mood and affect Results Imaging Abdomen CT scan report/results: report reviewed and image reviewed Labs 06/15/25 12:52 06/15/25 12:52 Labs: Laboratory Results - last 24 hr 06/15/25 06/15/25 12:21 12:52 WBC 16.61 H RBC 4.79 Hgb 15.6 Hct 45.0 MCV 94 MCH 32.6 MCHC 34.7 RDW 12.6 Plt Count 185 MPV 9.8 Immature Gran % 0.5 Neutrophils % 74.5 Lymphocytes % 14.5 Monocytes % 10.1 Eosinophils % 0.2 Basophils % 0.2 Nucleated RBC % 0.0 Absolute Neutrophils 12.37 H Absolute Lymphocytes 2.41 Absolute Monocytes 1.68 H Absolute Eosinophils 0.03 Absolute Basophils 0.03 RBC Morphology Normal Sodium 138 Potassium 4.0 Chloride 105 Carbon Dioxide 24.6 Anion Gap 8.4 BUN 18 Creatinine 0.8 Est GFR (CKD-EPI 2020) 107.15 Glucose 96 Calcium 8.4 L Urine Color Yellow Urine Clarity Clear Urine pH 6.0 Ur Specific [place] 1.025 Urine Protein Negative Urine Ketones Negative Urine Blood Negative Urine Nitrite Negative Urine Bilirubin Negative Urine Urobilinogen 0.2 Ur Leukocyte Esterase Negative Urine Glucose Negative Last Vital Signs Temp 36.8 C 06/15/25 15:07 Pulse 85 06/15/25 15:07 Resp 18 06/15/25 15:07 BP 159/85 H 06/15/25 15:07 Pulse Ox 97 06/15/25 15:07 Time Spent Time spent with Patient: 40-54 minutes Time was spent: preparing to see the patient(eg.review tests), obtaining and/or reviewing separately otained hiistory, ordering medications,tests, procedures, referring, communicating with other health critical care cns, indepentently interpreting results and counseling the patient
[2025-06-15 17:52] VITALS: BP 128/74; PULSE 80; RESP 20; TEMP 36.2
--- NOTE | 2025-06-15 18:29 | W.PC.ACHO ---
Registration Status: ADM JACKIE Primary Language: Preferred Language: Unknown ED Information & Data Chief Complaint FlankPain 06/15/25 12:12 Chief Complaint FlankPain 06/15/25 11:48 Triage Note few days of constant right 06/15/25 11:48 flank pain denies urinary symptoms at this time Medical / Surgical History (This Medical Record has been edited. Action required.) Serous retinal detachment of both eyes NSTEMI (non-ST elevated myocardial infarction) TBI (traumatic brain injury) (This Medical Record has been edited. Action required.) History of percutaneous coronary intervention Most Recent Vital Signs Temperature 36.2 C L 06/15/25 17:52 Pulse 80 06/15/25 17:52 Pulse Rhythm Regular 06/15/25 17:52 Respiratory Rate 20 06/15/25 17:52 Respiratory Effort Normal 06/15/25 17:52 Respiratory Depth Normal 06/15/25 17:52 Respiratory Pattern Normal 06/15/25 17:52 Blood Pressure 128/74 06/15/25 17:52 Blood Pressure Mean 109 06/15/25 15:07 Pulse Oximetry 97 06/15/25 15:07 Oxygen Delivery Method Room Air 06/15/25 17:52 Oxygen Flow Rate 0 06/15/25 17:52 Pain Level 2 06/15/25 17:52 Allergies Penicillins Allergy (Unverified 06/15/25 13:11) unkown Active Medications Generic Name Dose Route Start Last Admin Trade Name Freq PRN Reason Stop Dose Admin Piperacillin Sod/Tazobactam 50 mls @ 100 mls/hr 06/15/25 16:30 06/15/25 16:32 Sod 3.375 gm/ Sodium Chloride IVPB Not Given Q6H KRIS Acetaminophen 1,000 mg in 100 mls @ 400 mls/hr 06/15/25 16:30 06/15/25 16:35 Ofirmev IVPB 400 mls/hr Q6H KRIS Administration Iohexol 100 ml 06/15/25 13:45 06/15/25 13:36 Omnipaque 350 Mg/Ml 100 Ml Btl IJ 07/15/25 23:59 100 ml DIRECTED KRIS Administration Sodium Chloride 50 ml 06/15/25 13:45 06/15/25 13:37 Normal Saline - Diluent 50 Ml Vial IJ 50 ml DIRECTED KRIS Administration IV IV Catheter Type [Left Forearm Saline Lock ] IV Catheter Gauge [Left 20 Forearm] Diagnostics 06/15/25 06/15/25 Range/Units 12:52 12:21 WBC 16.61 H (4.4-10.8) 10^3/uL RBC 4.79 (4.36-5.78) 10^6/uL Hgb 15.6 (13.5-17.5) g/dL Hct 45.0 (40.0-50.0) % MCV 94 (80-95) fL MCH 32.6 (27.0-33.0) pg MCHC 34.7 (32.0-36.0) % RDW 12.6 (11.8-14.1) % Plt Count 185 (130-400) 10^3/uL MPV 9.8 (8.0-11.0) fL Immature Gran % 0.5 % Neutrophils % 74.5 % Lymphocytes % 14.5 % Monocytes % 10.1 % Eosinophils % 0.2 % Basophils % 0.2 % Nucleated RBC % 0.0 (0.0-0.3) % Absolute Neutrophils 12.37 H (1.2-6.7) 10^3/uL Absolute Lymphocytes 2.41 (1.2-3.4) 10^3/uL Absolute Monocytes 1.68 H (0.1-0.8) 10^3/uL Absolute Eosinophils 0.03 (0.0-0.7) 10^3/uL Absolute Basophils 0.03 (0.0-0.2) 10^3/uL RBC Morphology Normal Sodium 138 (136-145) mmol/L Potassium 4.0 (3.5-5.1) mmol/L Chloride 105 (98-107) mmol/L Carbon Dioxide 24.6 (21.0-32.0) mmol/L Anion Gap 8.4 (3-11) mmol/L BUN 18 (7-18) mg/dL Creatinine 0.8 (0.70-1.30) mg/dL Est GFR (CKD-EPI 2020) 107.15 (mL/min/1.73m2) Glucose 96 (74-106) mg/dL Calcium 8.4 L (8.5-10.1) mg/dL Urine Color Yellow (Yellow) Urine Clarity Clear (Clear) Urine pH 6.0 (5-8) Ur Specific [place] 1.025 (1.005-1.025) Urine Protein Negative (Neg-Trace) mg/dL Urine Ketones Negative (Negative) mg/dL Urine Blood Negative (Negative) Urine Nitrite Negative (Negative) Urine Bilirubin Negative (Negative) Urine Urobilinogen 0.2 (Up to 0.2) mg/dL Ur Leukocyte Esterase Negative (Negative) Urine Glucose Negative (Negative) mg/dL Intake and Output - 24 Hour Total 06/15/25 11:44 thru 06/15/25 11:48 Weight 121.95 kg Falls Risk Assessment History of Falls No History 06/15/25 17:52 Contributing Factors No Factors 06/15/25 12:16 Ambulatory Aids Independent 06/15/25 12:16 Tubes/Lines None 06/15/25 12:16 Gait Evaluation No gait disturbance 06/15/25 12:16 Cognition No cognitive impairment 06/15/25 12:16 Fall Total Score 0 06/15/25 17:52 Level of Risk Standard/Low Risk 06/15/25 17:52 Problems (This Medical Record has been edited. Action required.) Acute appendicitis (Acute) Coronary artery disease (Chronic) v v v v v v v v v Sending and/or Receiving Nurses: Please use comment section below to note any information pertinent to the patient hand-off not included above. Information / Comments: Pt alert, oriented, ambulatory with steady gait, admitted with acute appendicitis, for surgical intervention in the am. Report received from: Reji Mesa RN
[2025-06-15 19:59] VITALS: BP 120/67; PULSE 67; RESP 16; TEMP 36.9; O2SAT 97
[2025-06-15] MEDS: Lactated Ringers 1,000 ML 125 ML IV (21:12)
[2025-06-15] MEDS: Normal Saline Flush 10 ML SYR IVP ×2 (21:12)
[2025-06-15] MEDS: Enoxaparin 40 MG/0.4 ML SYR SC (21:13)
[2025-06-16] MEDS: ACETAMINOPHEN 1,000 MG/100 ML BAG 400 MG IVPB ×3 (00:38→13:00)
[2025-06-16] MEDS: PIPERACILLIN/TAZO 3.375 GM in Normal Saline 50 ML IVPB ×4 (05:45→23:01)
[2025-06-16] MEDS: Lactated Ringers 1,000 ML 125 ML IV (06:29)
[2025-06-16 07:01] LABS: Abs Immature Grans 0.06 10^3/uL (0.0-0.06); HCT 43.6 % (40.0-50.0); HGB 14.7 g/dL (13.5-17.5); Immature Grans % 0.6 %; MCH 32.2 pg (27.0-33.0); MCHC 33.7 % (32.0-36.0); MCV 95 fL (80-95); MPV 10.2 fL (8.0-11.0); Platelet Count 165 10^3/uL (130-400); RBC 4.57 10^6/uL (4.36-5.78); RDW 12.7 % (11.8-14.1); RDW-SD 44.7 fL; WBC 10.07 10^3/uL (4.4-10.8)
[2025-06-16 07:14] LABS: Anion Gap 5.9 mmol/L (3-11); BUN 11 mg/dL (7-18); CO2 28.1 mmol/L (21.0-32.0); Calcium 8.5 mg/dL (8.5-10.1); Chloride 104 mmol/L (98-107); Estimated GFR 91.12 (mL/min/1.73m2); Glucose 100 mg/dL (74-106); Potassium 4.3 mmol/L (3.5-5.1); Sodium 138 mmol/L (136-145)
[2025-06-16 08:14] VITALS: BP 130/80; PULSE 67; RESP 16; TEMP 36.5; O2SAT 98
[2025-06-16] MEDS: Metoprolol CR 50 MG TABCR 25 MG PO (08:42)
[2025-06-16] MEDS: Umeclidinium 7 CAP INHALER IH (08:44)
--- NOTE | 2025-06-16 09:22 | INITIAL_ITS ---
Date of service: 06/16/25 Time of Service: 09:22 Care Management Initial Assmt Initial Assessment Reason for Hospitalization: appendicitis Functional Status/Living Situation Patient Presentation: Yan was sitting up in bed when CM met with him. He was agreeable to conversation and engaged well with CM. Yan informed CM that he is very hungry. He has been on a clear liquid diet in anticipation of possibly having surgery at some point. He was admitted with probable appendicitis but, for a variety of reasons, he is not a great surgical risk so medical management was implemented. The surgeon met with Yan later on and was able to advance his diet. His pain and WBC are improved and he will likely transition to oral antibiotics tomorrow and be discharged home. Yan lives in a mobile home in [place] with his friend Chiara. He also has a girlfriend in the area that is helpful and supportive. Yan is disabled and unable to work. 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 He is independent with ADLs and continues to drive. Town of Residence: [place] Resides with: Other (friend) Significant Other/Family: [facility] Employment Status: Disabled Instrumental Activities of Daily Living (ADLs): Independent Medications Medication Management: No Issues/Barriers identified Physical Functioning/Mobility Assistive Device: none Advance Directives Advance Directives: Do you have an Advance Directive: N , 13:51 AD On File at [facility]: N 06/15/25, 13:51 Date Asked 06/15/25 06/15/25, 14:00 AD Date Reviewed COLST On File at [facility] No 06/15/25, 13:51 COLST Date Scanned Code Status Resuscitation Status Full Code Portal Pt does not currently have a portal and education provided: Yes Insurance Coverage/Financial Issues Insurance: Medicare Medicaid Care Team Visit Care Team Role Provider Type JAYLA BREEN NP Primary Care Provider NON-[facility] STAFF PHYSICIAN Paras Núñez MD Emergency Provider [facility] STAFF PHYSICIAN Estela Hoover MD Admit Provider [facility] STAFF PHYSICIAN Attending Provider Discharge Potential Discharge Needs: Surgical F/U Appt Anticipated Barriers to Discharge: None Identified Patient/Family Education Needs: Review discharge instructions, discuss Ask Me Three Transportation: Private vehicle Plan: Anticipate Yan will be discharged home with no new services when stable. He will follow up with his community providers and plan of care and transport with family. CM will follow and continue to support discharge planning efforts. Social Determinants of Health Screening Social Determinants of health last assessed in clinic: 06/16/25 Will the Patient Participate in the Screening?: Yes Do you worry about having a steady place to live?: no Problems where you live: no known problems In the past 12 months, have you had to go without electric, gas, oil or water in your home?: no 1. Within the past 12 months, we worried whether our food would run out before we got money to buy more.: Never true 2. Within the past 12 months, the food we bought just didn't last and we didn't have money to get more.: Never true Has lack of transportation kept you from medical appointments or from doing things needed for daily living?: yes Has anyone in your life made you feel unsafe or unsupported?: yes How often does anyone, including family and friends, physically hurt you?: Never How often does anyone, including family and friends, insult or talk down to you?: Never How often does anyone, including family and friends, threaten you with harm?: Never How often does anyone, including family and friends, scream or curse at you?: Never HRSN Safety total score: 4 How hard is it for you to pay for the very basics like food, housing, medical care, and heating? Would you say it is:: Not hard at all Do you want help finding or keeping work or a job?: I do not need or want help If for any reason you need help with day-to-day activities such as bathing, preparing meals, shopping, managing finances, etc., do you get the help you need?: I don?t need any help How often do you feel lonely or isolated from those around you?: Never Do you speak a language other than [place] at home?: No Does the patient want assistance with any of the above?: No Health Related Social Needs Health related social needs: transportation insecurity (Z59.82) PFSH All Active Problems (Updated 06/15/25 @ 14:20 by Paras Núñez MD) Acute appendicitis (Acute) Snoring (Acute) Dyspnea (Acute) BMI 30.0-30.9,adult (Acute) Nicotine dependence (Acute) Obesity (BMI 30.0-34.9) (Acute) Coronary artery disease (Chronic) ACS (acute coronary syndrome) (Acute) Elevated lipase (Acute) Appendicitis (Acute) Medical History Serous retinal detachment of both eyes NSTEMI (non-ST elevated myocardial infarction) 10/2022 to [facility] [place] shows CAD for medical managment RH TBI (traumatic brain injury) Surgical History History of percutaneous coronary intervention Family History Father Hypertension Depression Diabetes record states type 1 Sister Depression Aunt Diabetes Maternal Grandmother Diabetes Mother Diabetes Social History (System 06/15/25 @ 13:11 by Karina Carpenter) Smoking/Tobacco Use Status: Never Smoking risk assessment performed?: Yes Alcohol Intake: never Drug use: Daily Substance use type: marijuana Housing: house Do you feel safe at home: Yes Do you feel safe in your relationship?: Yes
--- NOTE | 2025-06-16 09:56 | TELEP.MEDR_ITS ---
Date of service: 06/16/25 Time of Service: 09:56 [facility] Med Rec Interview Person Interviewed: Med list review with [employer] system med fill list Quality Quality of Interview/Accuracy of Medication List: Poor Sources Sources used to compile medication list: [place] Medication List and Retail Pharmacy Changes made to Home Medication List: ADDITIONS: * None DELETIONS: * None CHANGES: * None Additional Notes Additional Notes: * Only able to complete med rec with fill history review, no information available from patient per floor RNs. Recommended Changes Recommended Changes(reason for recommendation): * None Attestation: The home medication list is now updated to the best of my knowledge and is ready to be reconciled by the provider. Please contact the [facility] Medication Reconciliation Pharmacist at for any questions.
--- NOTE | 2025-06-16 09:56 | TELEP.MEDREC ---
Date of service: 06/16/25 Time of Service: 09:56 [facility] Home Med Rec Interview Person Interviewed: Med list review with [employer] system med fill list Quality Quality of Interview/Accuracy of Medication List: Poor Sources Sources used to compile medication list: [employer] Medication List and Retail Pharmacy Changes made to Home Medication List: ADDITIONS: None DELETIONS: None CHANGES: None Additional Notes Additional Notes: Only able to complete med rec with fill history review, no information available from patient per floor RNs. Recommended Changes Recommended Changes(reason for recommendation): None Attestation: The home medication list is now updated to the best of my knowledge and is ready to be reconciled by the provider. Please contact the [facility] Medication Reconciliation Pharmacist at for any questions.
--- NOTE | 2025-06-16 13:34 | W.PM.PROGNOT ---
Date of Service Date of service: 06/16/25 Time of Service: 13:34 Assessment and Plan Assessment and plan (1) Acute appendicitis: Status: Acute Assessment and plan: Patient is a 49-year-old male who presented with 4 to 5 days of worsening right lower quadrant pain. He denied any other associated symptoms including nausea, vomiting, fevers, chills, chest pain, shortness of breath. He has a significant medical history for coronary artery disease and prior NSTEMI and remains on aspirin and Plavix at this time. He also has a history of potentially previous acute appendicitis for which he received a short course of antibiotics. He had a CT abdomen and pelvis in the emergency department which was concerning for acute appendicitis however upon my review it is difficult to visualize the appendix given the inflammation in this area. Given his stability, length of symptoms, dual antiplatelet therapy and imaging findings the decision was made to proceed with admission and management with antibiotics. This morning he notes that he is feeling much better. On exam he is afebrile and hemodynamically stable. He has some tenderness to palpation in the right lower quadrant however this is improved and he has no evidence of peritonitis. His white blood cell count is improved as well this morning. Given his overall improvement and stability it would be appropriate to continue antibiotic management and slowly advance his diet today as tolerated. It was discussed with him that the recommendation would be to continue IV antibiotics today and likely transition to p.o. antibiotics tomorrow pending his course. Will continue to monitor his abdominal exam closely. (2) Coronary artery disease: Status: Chronic Subjective Subjective Interval history since last seen: He states he is doing well this morning. He notes that his abdominal pain is improved. He would like to go home and notes that he is hungry this morning. He denies any fevers, chills, nausea, vomiting. He notes he is passing flatus but has not had a bowel movement. He denies any difficulty with urination. Exam Narrative Exam Narrative: General: Well appearing, no acute distress. Skin: Good turgor, no visible rashes or lesion HEENT: Normocephalic, atraumatic CV: Regular rate Lungs: Bilateral equal chest rise, non-labored breathing Abdomen: Soft, non-distended, minimal right sided tenderness to palpation, no rebound or guarding Extremities: Warm, well perfused Neurologic: No focal deficits Psychiatric: Alert and oriented, normal mood and affect Objective Last Vital Signs Temp 36.5 C 06/16/25 08:14 Pulse 67 06/16/25 08:14 Resp 16 06/16/25 08:14 BP 130/80 06/16/25 08:14 Pulse Ox 98 06/16/25 08:14 Laboratory Results - last 24 hr 06/16/25 06:28 WBC 10.07 RBC 4.57 Hgb 14.7 Hct 43.6 MCV 95 MCH 32.2 MCHC 33.7 RDW 12.7 Plt Count 165 MPV 10.2 Immature Gran % 0.6 Neutrophils % 68.7 Lymphocytes % 20.9 Monocytes % 9.0 Eosinophils % 0.6 Basophils % 0.2 Nucleated RBC % 0.0 Absolute Neutrophils 6.92 H Absolute Lymphocytes 2.10 Absolute Monocytes 0.91 H Absolute Eosinophils 0.06 Absolute Basophils 0.02 Sodium 138 Potassium 4.3 Chloride 104 Carbon Dioxide 28.1 Anion Gap 5.9 BUN 11 Creatinine 1.0 Est GFR (CKD-EPI 2020) 91.12 Glucose 100 Calcium 8.5 PAWSS Have you Been Recently Intoxicated or Drunk Within the Last 30 days?: No Have you Ever Experienced Previous Episodes of Alcohol Withdrawal?: No Have you ever Experienced Withdrawal Seizures?: No Have you ever Experienced Delirium Tremens(DT)s?: No Have you ever undergone Alcohol Rehabilitation Treatment (i.e, inpt ot outpatient treatment programs)?: No Have you ever Experienced Blackouts?: No Have you ever Combined Alcohol with other Downers within the last 90 days?: No Have you ever Combined Alcohol with any other Substance of Abuse during the last 90 days?: No Positive Blood Alcohol level on Presentation? [PCS.BAL]: No Evidence of Increased Autonomic Activity (i.e. HR>120, tremor, sweating, agitation, nausea)?: No Result: 0 Time Spent with Patient Time Spent with Patient: 25-34 minutes Time was spent: preparing to see the patient(eg.review tests), obtaining and/or reviewing separately otained hiistory, ordering medications,tests, procedures and counseling the patient
--- NOTE | 2025-06-16 14:30 | CHAPLAIN ---
Luis was in bed when I visited. He is here for appendicitis which is being managed with antibiotics for now. When I asked if he is in touch with family or friends, he said he doesn't have any family, and his friends don't like him. He lives in [place], [place]. He asked about having something to eat or drink. When I checked with his nurse, his NPO status had just changed and he was allowed food and she had ordered it for him.
[2025-06-16 19:06] VITALS: BP 119/51; PULSE 83; RESP 20; TEMP 37.2; O2SAT 95
[2025-06-16] MEDS: Normal Saline Flush 10 ML SYR IVP ×2 (21:35→23:02)
[2025-06-16] MEDS: Enoxaparin 40 MG/0.4 ML SYR SC (21:35)
[2025-06-17 00:04] VITALS: BP 121/62; PULSE 82; RESP 18; TEMP 36.9; O2SAT 98
[2025-06-17] MEDS: PIPERACILLIN/TAZO 3.375 GM in Normal Saline 50 ML IVPB (05:13)
[2025-06-17] MEDS: Normal Saline Flush 10 ML SYR IVP ×2 (05:14→08:54)
[2025-06-17 07:01] LABS: Abs Immature Grans 0.04 10^3/uL (0.0-0.06); HCT 43.4 % (40.0-50.0); HGB 14.5 g/dL (13.5-17.5); Immature Grans % 0.3 %; MCH 31.7 pg (27.0-33.0); MCHC 33.4 % (32.0-36.0); MCV 95 fL (80-95); MPV 10.0 fL (8.0-11.0); Platelet Count 164 10^3/uL (130-400); RBC 4.57 10^6/uL (4.36-5.78); RDW 12.8 % (11.8-14.1); RDW-SD 44.8 fL; WBC 11.51 10^3/uL (4.4-10.8)
[2025-06-17 07:40] VITALS: BP 120/71; PULSE 75; RESP 16; TEMP 36.7; O2SAT 95
[2025-06-17 08:30] VITALS: O2SAT 97
[2025-06-17] MEDS: Umeclidinium 7 CAP INHALER IH (08:30)
[2025-06-17] MEDS: Atorvastatin 40 MG TAB 80 MG PO (08:54)
[2025-06-17] MEDS: Amoxicillin 875/Clav. 125 TAB PO (08:54)
[2025-06-17] MEDS: Metoprolol CR 25 MG TABCR PO (08:55)
--- NOTE | 2025-06-17 11:07 | W.PM.DS.N ---
Date of service: 06/17/25 Time of Service: 11:07 DS: Diagnosis Discharge Diagnosis (1) Acute appendicitis: Status: Acute (2) Coronary artery disease: Status: Chronic Discharge Plan Disposition Patient Disposition: Home Condition: Improving Discharge Details Reason For Visit: Acute Appendicitis Admit Date/Time: 06/15/25 16:24 Admit Provider: Estela Hoover Attending Provider: Estela Hoover Primary Care Provider: JAYLA BREEN Hospital Course Hospital Course: Luis is 49 years old. He came to the emergency department with abdominal pain, and underwent a CT scan that demonstrated inflammation in the right lower quadrant that could represent appendicitis. His medical history was complicated by previous episode of appendicitis which was managed nonoperatively. He was started on antibiotics, and had significant improvement of his symptoms over 24 hours. Diet was advanced, which he tolerated with no abdominal discomfort or any nausea or vomiting. His leukocytosis improved. He was discharged home with antibiotics and outpatient follow-up Home Meds and New Rx's Prescriptions: New amoxicillin-pot clavulanate 875-125 mg Tablet 1 tab PO BID Qty: 14 0RF Rx Instructions: Take 1 tablet by mouth in the morning, and 1 tablet by mouth in the evening polyethylene glycol 3350 [Miralax] 17 gram/dose powder 17 g PO DAILY Qty: 119 0RF Rx Instructions: Mix 1 capful with 8 ounces of the beverage of your choice. Drink daily. Continued aspirin 81 mg tablet,delayed release (DR/EC) 81 mg PO DAILY atorvastatin 80 mg tablet 80 mg PO DAILY clopidogrel [Plavix] 75 mg tablet 75 mg PO DAILY losartan 25 mg tablet 25 mg PO DAILY nitroglycerin 0.4 mg tablet, sublingual 0.4 mg sublingual Q5M PRN Rx Instructions: do not exceed 3 doses per episode metoprolol succinate 50 mg tablet extended release 24 hr 25 mg PO DAILY Patient Comments: 11/24/33 per PCP notes RH albuterol sulfate [Ventolin HFA] 90 mcg/actuation HFA aerosol inhaler 2 inh inhalation Q4H PRN Incruse Ellipta 62.5 mcg/actuation blister with device 1 inh inhalation DAILY Discharge Instructions Additional Instructions: Luis, it was nice meeting you today, and am glad you are making a nice recovery so far. As we discussed, you were admitted to the hospital with abdominal pain, and a CAT scan that suggested the possibility of appendicitis. This seems quite similar to your previous episode. You seem to respond favorably to antibiotics, and I think it is reasonable to discharge you home with an outpatient course of antibiotics. I have placed a prescription for some Augmentin. He will take 1 tablet in the morning, and 1 tablet in the evening. I would encourage you to check your temperature at home once in the morning, once in the evening, and at any point during the day if you feel feverish I have also added a prescription for some MiraLAX to help ensure comfortable bowel movements over the next few days. I also recommend [id number] probiotics, or a live active yogurt to help offset any unpleasant side effects of the antibiotics. Hopefully, you will continue to improve. If at any point you feel sick, or something seems to be going backwards, please call our office during regular business hours, or just go back to the emergency department if you have trouble getting in touch with someone. I have scheduled a follow-up appointment in our office Stand Alone Forms: Nursing Discharge Form Referrals: Reji Garcia RN [Emergency Nurse, Nursing] JAYLA BREEN NP [Primary Care Provider, Medicine] Referral Note: Your PCP office will give you a call to make a follow up appointment, if you do not hear from your PCP please give them a call. Estela Hoover MD [ [facility] STAFF PHYSICIAN, Surgery] - 07/05/25 10:00 am Activity:: Activity as Tolerated Equipment/Supplies:: No Equipment Needed Diet:: As Tolerated Discharge Orders Discharge Orders: Discharge Order (Routine); Ordered 06/17/25 Ordered By: Romaine Redmond DS: Summary Time Spent with Patient providing and/or coordinating discharge services: Less than 30 minutes Status at Discharge Functional status at discharge: independent ambulation Overall status at discharge: patient is progressing back to baseline Mental Status: mental status grossly normal Speech and Movement: speech and movement normal Mood: congruent mood Affect: normal affect Quality:SDOH Health Related Social Needs: Health related social needs transpo insecurity Exam Psych Mental Status: mental status grossly normal Speech and Movement: speech and movement normal Mood: congruent mood Affect: normal affect DS: Data Vitals/I&O Vitals and I&O: Vital Signs Temperature 98.1 F 06/17/25 07:40 Temperature Source Temporal Artery Scan 06/17/25 07:40 Pulse 75 06/17/25 07:40 Pulse Rhythm Regular 06/15/25 17:52 Respiratory Rate 16 06/17/25 07:40 Respiratory Effort Normal 06/15/25 17:52 Respiratory Depth Normal 06/15/25 17:52 Respiratory Pattern Normal 06/15/25 17:52 Blood Pressure 120/71 06/17/25 07:40 Blood Pressure Mean 87 06/17/25 07:40 Pulse Oximetry 97 06/17/25 08:30 Oxygen Delivery Method Room Air 06/17/25 08:30 Oxygen Flow Rate 0 06/17/25 08:30 Pain Level 0 06/17/25 09:47 Intake & Output 06/16/25 06/16/25 06/17/25 11:59 23:59 11:59 Intake Total 1900 / 3330 1430 / 3330 530 / 530 Balance 1900 / 3330 1430 / 3330 530 / 530 Intake: IV 1350 / 2560 1210 / 2560 70 / 70 Oral 550 / 770 220 / 770 460 / 460 Other: Urine Color Yellow Yellow Urine Appearance Clear Comment x 1 patient voiding in toilet pt reports voiding Stool Characteristics Soft Data Completed and Pending Labs on day of discharge: Labs from last 24 hours 06/17/25 06:50 WBC 11.51 H RBC 4.57 Hgb 14.5 Hct 43.4 MCV 95 MCH 31.7 MCHC 33.4 RDW 12.8 Plt Count 164 MPV 10.0 Immature Gran % 0.3 Neutrophils % 79.0 Lymphocytes % 14.2 Monocytes % 5.6 Eosinophils % 0.6 Basophils % 0.3 Nucleated RBC % 0.0 Absolute Neutrophils 9.09 H Absolute Lymphocytes 1.63 Absolute Monocytes 0.64 Absolute Eosinophils 0.07 Absolute Basophils 0.03 PFSH All Active Problems (Updated 06/15/25 @ 14:20 by Paras Núñez MD) Acute appendicitis (Acute) Snoring (Acute) Dyspnea (Acute) BMI 30.0-30.9,adult (Acute) Nicotine dependence (Acute) Obesity (BMI 30.0-34.9) (Acute) Coronary artery disease (Chronic) ACS (acute coronary syndrome) (Acute) Elevated lipase (Acute) Appendicitis (Acute) Medical History Serous retinal detachment of both eyes NSTEMI (non-ST elevated myocardial infarction) 10/2022 to [facility] cath shows CAD for medical managment RH TBI (traumatic brain injury) Surgical History History of percutaneous coronary intervention Family History Father Hypertension Depression Diabetes record states type 1 Sister Depression Aunt Diabetes Maternal Grandmother Diabetes Mother Diabetes Social History (System 06/15/25 @ 13:11 by Karina Carpenter) Smoking/Tobacco Use Status: Never Smoking risk assessment performed?: Yes Alcohol Intake: never Drug use: Daily Substance use type: marijuana Housing: house Do you feel safe at home: Yes Do you feel safe in your relationship?: Yes Time Spent with Patient Time Spent with Patient: <45 minutes Time was spent: preparing to see the patient(eg.review tests), indepentently interpreting results, counseling the patient and care coordination
--- NOTE | 2025-06-17 12:12 | CMDISCH_ITS ---
Date of service: 06/17/25 Time of Service: 12:13 LACE Index Scoring Tool Questions: Length of Stay (in days): 2 Was the patient admitted via the E.D.?: Yes Comorbidities: Previous M.I. E.D. Visits: 3 Answers: Total Score: 9 Risk of Readmission: Low Risk Care Management Discharge Plan Reason for Hospitalization: appendicitis Discharge Plan: Yan will be discharged home with no new services. He will follow up with his community providers and plan of care and transport via his own private vehicle which he will drive (car at [facility]). Patient/Family Education Needs: Review discharge instructions, limitations, follow up plan and discuss Ask Me Three SDOH Health Related Social Needs: Health related social needs transpo insecurity
--- NOTE | 2025-06-17 12:56 | W.PM.PROGNOT ---
Date of Service Date of service: 06/17/25 Time of Service: 12:56 Assessment and Plan Assessment and plan (1) Acute appendicitis: Status: Acute Assessment and plan: Luis seems to be doing pretty well with nonoperative management of his appendicitis, and has had favorable response to the antibiotic therapy. Will continue him on Augmentin for 7 days, and discharge him home with outpatient follow-up. Subjective Subjective Interval history since last seen: Luis seems to be doing much better. His pain is almost entirely gone, and he is tolerating a diet without any discomfort, nausea, or vomiting. He has a low-grade leukocytosis which has improved from his admission value. Exam GI Other: His abdomen is soft, and not at all distended. He has no tenderness to deep palpation. Objective Last Vital Signs Temp 98.1 F 06/17/25 07:40 Pulse 75 06/17/25 07:40 Resp 16 06/17/25 07:40 BP 120/71 06/17/25 07:40 Pulse Ox 97 06/17/25 08:30 Laboratory Results - last 24 hr 06/17/25 06:50 WBC 11.51 H RBC 4.57 Hgb 14.5 Hct 43.4 MCV 95 MCH 31.7 MCHC 33.4 RDW 12.8 Plt Count 164 MPV 10.0 Immature Gran % 0.3 Neutrophils % 79.0 Lymphocytes % 14.2 Monocytes % 5.6 Eosinophils % 0.6 Basophils % 0.3 Nucleated RBC % 0.0 Absolute Neutrophils 9.09 H Absolute Lymphocytes 1.63 Absolute Monocytes 0.64 Absolute Eosinophils 0.07 Absolute Basophils 0.03 PAWSS Have you Been Recently Intoxicated or Drunk Within the Last 30 days?: No Have you Ever Experienced Previous Episodes of Alcohol Withdrawal?: No Have you ever Experienced Withdrawal Seizures?: No Have you ever Experienced Delirium Tremens(DT)s?: No Have you ever undergone Alcohol Rehabilitation Treatment (i.e, inpt ot outpatient treatment programs)?: No Have you ever Experienced Blackouts?: No Have you ever Combined Alcohol with other Downers within the last 90 days?: No Have you ever Combined Alcohol with any other Substance of Abuse during the last 90 days?: No Positive Blood Alcohol level on Presentation? [PCS.BAL]: No Evidence of Increased Autonomic Activity (i.e. HR>120, tremor, sweating, agitation, nausea)?: No Result: 0 Time Spent with Patient Time Spent with Patient: 25-34 minutes Time was spent: preparing to see the patient(eg.review tests), indepentently interpreting results, counseling the patient and care coordination
== END 2025-06-17 13:25 | disposition home or self-care (01) ==
LOC: ER 17:50 → MS 17:51
PROVIDERS: Admitting Provider Student in an Organized Health Care Education/Training Program; Emergency Provider Emergency Medicine; PCP Nurse Practitioner Family; Visit Provider Student in an Organized Health Care Education/Training Program
DX: K35.80 Unspecified acute appendicitis (principal); I25.10 Atherosclerotic heart disease of native coronary artery without angina pectoris; I25.2 Old myocardial infarction; R06.83 Snoring; F17.210 Nicotine dependence, cigarettes, uncomplicated; E66.9 Obesity, unspecified; F12.90 Cannabis use, unspecified, uncomplicated; Z79.82 Long term (current) use of aspirin; Z79.02 Long term (current) use of antithrombotics/antiplatelets; Z68.34 Body mass index [BMI] 34.0-34.9, adult
CPT/HCPCS: 36415; 80048; 93005; 94640; 96361; 96365; 96375; 99222; 99231; 99238; 99285; J1650; 74177; 81003; 85025; 93010; 94664; 94760; G0378; J0131; J2270; J2543; J3010; J3490

== ENCOUNTER → 2025-07-05 09:31 | Outpatient (BNVA) | payer MEDICARE, MEDICAID, SELFPAY | PROVIDERS: PCP Nurse Practitioner Family; Referring Provider Nurse Practitioner Family; Visit Provider Student in an Organized Health Care Education/Training Program | DX: K35.80 Unspecified acute appendicitis (principal) | CPT/HCPCS: 99213 ==

== ENCOUNTER 2025-08-15 11:57 | Emergency (ER) | payer MEDICARE, MEDICAID, SELFPAY ==
--- NOTE | 2025-08-15 11:45 | RT.EKG_ITS ---
APPROVED REPORT Exam: Resting ECG Reason for Exam: SOB, Chest Pain Patient Location: E HR:74 bpm ECG Measurements Heart Rate 74 AXIS VA 162 P 60 QRSd 106 QRS -56 QT 390 T -1 QTc 435 Conclusion Sinus rhythm...normal P axis, V-rate 60- 99 Ventricular bigeminy...bigeminy string>4 w/ V complexes Inferior infarct, old...Q >35mS, II III aVF
--- NOTE | 2025-08-15 12:00 | DI.RAD_ITS ---
Exam(s) XR CHEST 2V PA LATERAL EXAM: XR CHEST 2V PA LATERAL CLINICAL HISTORY: SOB, CP TECHNIQUE: 2D digital imaging was performed. Two views. COMPARISON: CR,XR XR CHEST 2V PA LATERAL from 06/27/2023 FINDINGS: HEART: Normal size. Aorta: Not dilated. PULMONARY VASCULATURE: Normal. MEDIASTINUM: Unremarkable. LUNGS: Clear. PLEURAL SPACE: No pleural effusion or pneumothorax. BONE:Unremarkable for age. SOFT TISSUES: Unremarkable. IMPRESSION: No acute abnormality. The preliminary [facility] report was reviewed. DATA REPOSITORY: RADIATION DOSE DELIVERED:
[2025-08-15 12:01] VITALS: BP 129/70; PULSE 75; RESP 18; O2SAT 98
--- NOTE | 2025-08-15 12:01 | W.ED.GENAD ---
Discharge Plan Disposition Patient Disposition: Home Condition: Good Discharge Details Clinical Impression: Chest pain Primary Care Provider: JAYLA BREEN ED Provider: Azul Vasquez Home Meds and New Rx's Prescriptions: No Action aspirin 81 mg tablet,delayed release (DR/EC) 81 mg PO DAILY atorvastatin 80 mg tablet 80 mg PO DAILY clopidogrel [Plavix] 75 mg tablet 75 mg PO DAILY losartan 25 mg tablet 25 mg PO DAILY nitroglycerin 0.4 mg tablet, sublingual 0.4 mg sublingual Q5M PRN Rx Instructions: do not exceed 3 doses per episode metoprolol succinate 50 mg tablet extended release 24 hr 25 mg PO DAILY Patient Comments: 11/24/33 per PCP notes RH albuterol sulfate [Ventolin HFA] 90 mcg/actuation HFA aerosol inhaler 2 inh inhalation Q4H PRN Incruse Ellipta 62.5 mcg/actuation blister with device 1 inh inhalation DAILY polyethylene glycol 3350 [Miralax] 17 gram/dose powder 17 g PO DAILY Qty: 119 0RF Rx Instructions: Mix 1 capful with 8 ounces of the beverage of your choice. Drink daily. Discharge Instructions Additional Instructions: Your chest pain workup today was reassuring and you had full improvement of symptoms after receiving famotidine/an antacid and a nebulizer treatment. However, it is very important that you follow-up with cardiology to have a stress test performed to further evaluate your heart function. Please call [facility] first thing in the morning to schedule a follow-up appointment and for referral to cardiology for further testing. Return to emergency care if you develop new chest pains, difficulty breathing, episodes of dizziness/feeling like you might pass out, weakness, or if you are very worried and need to be rechecked again immediately. Stand Alone Forms: Portal Information Referrals: JAYLA BREEN, TECHNICAL APPLICATIONS SCIENTIST [Primary Care Provider, Medicine] Discharge Data Discharge Date/Time-TO BE ENTERED AT DEPARTURE: 08/15/25 14:27 HPI General Date/Time Provider Initiated Documentation: 08/15/25 11:59. HPI Narrative: Luis is a 49-year-old male with history of CAD/NSTEMI x 4 without stenting (currently on plavix, statin, and ASA), tobacco use, obesity who presents to the emergency department companied by his partner for evaluation of chest pain with mild shortness of breath since 6 AM. He reports that it has been there in the center of his chest since he woke up this morning. Does not radiate and is nonexertional. This is accompanied by mild left upper quadrant discomfort, denies acid reflux. Denies send illness such as fever/chills, congestion, sore throat, cough, headache, dizziness, vision changes, numbness/tingling in extremities, nausea/vomiting, change in p.o. intake, change in bowel or bladder function. He did take 162 mg aspirin this morning. Says that he did not take his inhalers this morning, has not been diagnosed with COPD, but feels that these help with the shortness of breath. Related Data Home Medications ?Medication ?Instructions ?Recorded ?Confirmed aspirin 81 mg tablet,delayed 81 mg PO DAILY 10/04/22 08/15/25 release atorvastatin 80 mg tablet 80 mg PO DAILY 10/04/22 08/15/25 clopidogrel 75 mg tablet (Plavix) 75 mg PO DAILY 10/04/22 08/15/25 losartan 25 mg tablet 25 mg PO DAILY 10/04/22 08/15/25 nitroglycerin 0.4 mg sublingual 0.4 mg sublingual Q5M PRN 10/04/22 08/15/25 tablet albuterol sulfate 90 mcg/actuation 2 inh inhalation Q4H PRN 11/25/23 08/15/25 aerosol inhaler (Ventolin HFA) metoprolol succinate 50 mg 25 mg PO DAILY 11/25/23 08/15/25 tablet,extended release 24 hr umeclidinium 62.5 mcg/actuation 1 inh inhalation DAILY 03/30/25 08/15/25 blister powder for inhalation (Incruse Ellipta) polyethylene glycol 3350 17 17 g PO DAILY #119 grams 06/17/25 08/15/25 gram/dose oral powder (Miralax) Previous Rx's ?Medication ?Instructions ?Recorded polyethylene glycol 3350 17 17 g PO DAILY #119 grams 06/17/25 gram/dose oral powder (Miralax) Allergies Allergy/AdvReac Type Severity Reaction Status Date / Time Penicillins Allergy Unknown Other (See Verified 08/15/25 12:07 Comment) General FARIBA: 3 Exam Const General: cooperative, healthy appearing, comfortable and other (flat affect) Nutritional Appearance: obese Orientation: alert and oriented x3 Chest Chest: normal inspection of the chest Resp Effort & Inspection: normal respiratory effort, no audible wheezes and no cough Auscultation: clear to auscultation bilaterally Cardio Rate: regular rate Rhythm: regular rhythm Pulses: radial pulses present GI Inspection: normal to inspection, non-distended and obesity Palpation: tender (LUQ) Skin General skin exam: no rashes or lesions noted Extrem General: normal to inspection, capillary refill normal and no pedal edema Medical Decision Making Luis is a 49-year-old male with history of CAD/NSTEMI x 4 without stenting (currently on plavix, statin, and ASA), tobacco use, obesity who presents to the emergency department companied by his partner for evaluation of chest pain with mild shortness of breath since 6 AM. He reports that it has been there in the center of his chest since he woke up this morning. Does not radiate, no change with exertion. This is accompanied by mild left upper quadrant discomfort, denies acid reflux. Denies send illness such as fever/chills, congestion, sore throat, cough, headache, dizziness, vision changes, numbness/tingling in extremities, nausea/vomiting, change in p.o. intake, change in bowel or bladder function. He did take 162 mg aspirin this morning. Says that he did not take his inhalers this morning, has not been diagnosed with COPD, but feels that these help with the shortness of breath. No recent surgery/immobility, history of blood clots, hormone use. Says this does not feel like previous episodes of CP associated with NSTEMI. Physical exam reassuring. Luis is alert and oriented, no acute distress, he is however a reticent historian. Easy work of breathing, lung sounds clear bilaterally. Normal heart sounds. Mild tenderness w/ palpation of left upper quadrant. Abdomen is obese, no rigidity or guarding. Moving all extremities equally. Radial pulse intact bilaterally. No pedal edema. DDx includes but is not limited to: ACS, COPD exacerbation, PNA, pleural effusion, GERD, pancreatitis, gastritis. No red flags concerning for PE or aortic dissection. HEART score 3 based on risk factors. I independently interpreted the following tests: EKG shows sinus rhythm rate 74, ventricular bigeminy, no changes consistent with acute ischemia. Unchanged from previous. CBC shows mild leukocytosis, white cell count [place] 0.83. CMP, BNP, lipase, serial troponins all unremarkable. No acute abnormalities noted on chest x-ray. While in the emergency department Luis received 162 mg aspirin, famotidine, and duo neb. Reports full improvement of symptoms, says abdominal discomfort has fully resolved and chest pain is fully gone. Overall cardiac workup today reassuring. Unclear etiology of chest pain, likely related to GERD, however patient does have significant cardiac risk factors and should have close follow-up with cardiology outpatient for further evaluation/management. Reviewed discharge instructions, including importance of following up with cardiology for stress test, as well as PCP, and red flags indicate need for return to emergency care. He voices agreement plan of care. Medical Records Medical records narrative: I did review Luis's past medical records, including echo from 09/17/22. EF 40%, no segmental wall motion abnormalities or significant valvular disease identified. 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 He has had sporadic cardiology follow-up since NSTEMI in 2022 (cath at [facility] revealed small anamolous circumflex arising from the ostial RCA. This circumflex was occlused; it was noted that he had 25 to 40% stenosis of the LAD and second diagonal as well and 70% stenosis of the RCA). Recurrent episodes of chest pain attributed to anxiety/getting worked up Imaging Data Radiologic Study: Radiologist's impression: PROCEDURE INFORMATION: Exam: XR Chest Exam date and time: 08/15/2025 12:45 PM Age: 49 years old Clinical indication: Other: SOB, cp TECHNIQUE: Imaging protocol: Radiologic exam of the chest. Views: 2 views. COMPARISON: CT THORAX ABD/PEL CTA 12/10/2023 8:18 PM FINDINGS: Lungs: Unremarkable. No consolidation. Pleural spaces: Unremarkable. No pleural effusion. No pneumothorax. Heart/Mediastinum: Unremarkable. No cardiomegaly. Bones/joints: Unremarkable. IMPRESSION: No acute findings. Quality:SDOH Health Related Social Needs: Health related social needs transpo insecurity PFSH All Active Problems (Updated 08/15/25 @ 13:38 by Azul Luna) Chest pain (Acute) Acute appendicitis (Acute) Snoring (Acute) Dyspnea (Acute) BMI 30.0-30.9,adult (Acute) Nicotine dependence (Acute) Obesity (BMI 30.0-34.9) (Acute) Coronary artery disease (Chronic) ACS (acute coronary syndrome) (Acute) Elevated lipase (Acute) Appendicitis (Acute) Medical History Serous retinal detachment of both eyes NSTEMI (non-ST elevated myocardial infarction) 10/2022 to [facility] cath shows CAD for medical managment RH TBI (traumatic brain injury) Surgical History History of percutaneous coronary intervention Family History Father Hypertension Depression Diabetes record states type 1 Sister Depression Aunt Diabetes Maternal Grandmother Diabetes Mother Diabetes Social History (System 06/15/25 @ 13:11 by Karina Carpenter) Smoking/Tobacco Use Status: Never Smoking risk assessment performed?: Yes Alcohol Intake: never Drug use: Daily Substance use type: marijuana Housing: house Do you feel safe at home: Yes Do you feel safe in your relationship?: Yes
[2025-08-15 12:37] LABS: Abs Immature Grans 0.04 10^3/uL (0.0-0.06); HCT 46.8 % (40.0-50.0); HGB 16.2 g/dL (13.5-17.5); Immature Grans % 0.3 %; MCH 31.7 pg (27.0-33.0); MCHC 34.6 % (32.0-36.0); MCV 92 fL (80-95); MPV 9.8 fL (8.0-11.0); Platelet Count 206 10^3/uL (130-400); RBC 5.11 10^6/uL (4.36-5.78); RDW 12.4 % (11.8-14.1); RDW-SD 41.9 fL; WBC 11.83 10^3/uL (4.4-10.8)
[2025-08-15 12:47] LABS: Lab Add On Test DONE
[2025-08-15 12:55] LABS: Troponin I 4 ng/L (<54)
[2025-08-15 12:56] LABS: ALT 48 U/L (10-49); AST 35 U/L (<34); Albumin 4.3 g/dL (3.2-5.0); Alkaline Phosphatase 67 U/L (46-116); Anion Gap 7.3 mmol/L (3-11); BUN 13 mg/dL (9-23); Bilirubin, Total 0.6 mg/dL (0.2-1.2); CO2 25.7 mmol/L (20.0-31.0); Calcium 9.6 mg/dL (8.3-10.6); Chloride 107 mmol/L (98-107); Glucose 90 mg/dL (74-106); Potassium 4.0 mmol/L (3.5-5.1); Sodium 140 mmol/L (136-145); Total Protein 6.9 g/dL (5.7-8.2)
[2025-08-15 13:04] VITALS: PULSE 69; RESP 18; O2SAT 97
[2025-08-15] MEDS: Famotidine 20 MG/2 ML VIAL IVP (13:04)
[2025-08-15] MEDS: Albuterol/Ipratropium 3 ML UPD VIAL UPD (13:04)
[2025-08-15] MEDS: Aspirin 81 MG CHEW 162 MG CH (13:04)
--- NOTE | 2025-08-15 13:06 | DI.[facility]_ITS ---
PROCEDURE INFORMATION: Exam: XR Chest Exam date and time: 08/15/2025 12:45 PM Age: 49 years old Clinical indication: Other: SOB, cp TECHNIQUE: Imaging protocol: Radiologic exam of the chest. Views: 2 views. COMPARISON: CT THORAX ABD/PEL CTA 12/10/2023 8:18 PM FINDINGS: Lungs: Unremarkable. No consolidation. Pleural spaces: Unremarkable. No pleural effusion. No pneumothorax. Heart/Mediastinum: Unremarkable. No cardiomegaly. Bones/joints: Unremarkable. IMPRESSION: No acute findings. Dictated and Authenticated by: Seun Heath MD. Orderin Mallory Liang MD
[2025-08-15 13:08] LABS: Lipase 115 U/L (<53)
[2025-08-15 14:06] LABS: Troponin I 4 ng/L (<54)
[2025-08-15 14:25] VITALS: RESP 16
== END 2025-08-15 14:27 | disposition home or self-care (01) ==
PROVIDERS: Emergency Provider Nurse Practitioner Family; PCP Nurse Practitioner Family
DX: R07.9 Chest pain, unspecified (principal); R06.02 Shortness of breath
CPT/HCPCS: 99284; 99285; 94640; 96374; 80053; 83690; 93005; 71046; 83880; 84484; 85025; 93010; J7620

== ENCOUNTER → 2025-08-23 00:10 | Outpatient (CLI) | payer MEDICARE, MEDICAID, SELFPAY ==
--- NOTE | 2025-08-23 07:00 | DI.NM_ITS ---
APPROVED REPORT Exam: Pharmacologic Patient Location: Out-Patient Room/Bed: Stress Nurse: Azul Lott RN Ordering Provider:BONIFACIO JOSÉ, Contact Number: BMI: 33.50 Baseline Rhythm: bigeminy Indications: CAD, atherosclerotic heart disease, atypical chest pain Medical History Medical History: NSTEMI x4 (no stents), harmful pattern of alcohol use, tobacco use, TBI, CAD Cardiac Medications: aspirin, atorvastatin, clopidogrel, losartan, nitroglycerin, ventolin HFA, metoprolol succinate, incruse ellipta Allergies: penicillins Cardiac Risk Factors: HTN, HLD, CVD, smoker, obesity Previous Cardiac Procedures: PCI 2022 Pretest Chest Pain Characteristics: a little chest pain Exercise History: Indeterminate Physical Disabilities: n/a Lung Sounds: Clear to auscultation Heart Sounds: Irregular Stress Test Details Test: Pharmacologic stress testing performed using 0.4 mg of regadenoson per 5 mL given IV over 10 seconds. Reason for pharmacologic stress test: beta patricia. Nuclear Acquisition: Rest Tc-99m/Stress Tc-99m 1 day Rest Isotope: Tc-99m Sestamibi. Dose: 12.0 Date: 08/23/2025 Injection Time: 1000 Stress Isotope: Tc-99m Sestamibi. Dose: 36.0 Date: 08/23/2025 Injection Time: 1150 HR Resting HR Supine: 66 bpm Max Heart Rate (APMHR): 169 bpm Target HR (85% APMHR): 144 bpm Max HR Achieved: 92 bpm % of APMHR: 54 Recovery HR: 73 bpm BP Resting BP Supine: 110/68 mmHg Max BP: 120/80 mmHg Recovery BP: 110/70 mmHg ECG Resting ECG: Ventricular bigeminy Comment: biphasic T wave in leads III and V6 Stress ECG: Ventricular bigeminy, Sinus Rhythm ST Change: Nondiagnostic low heart rate Recovery ECG: Sinus Rhythm Recovery ST Change: Nondiagnostic low heart rate Recovery Arrhythmia: n/a Clinical Angina Score: Non-Limiting Rate Pressure Product: [id number] Stress ECG Conclusion 1. Resting EKG showed vertical axis, PVCs, late transition 2. Patient underwent testing using pharmacologic stress with regadenoson 3. Electrocardiographic portion of the test was nondiagnostic due to inadequate heart rate, as maximal heart rate was 54% of predicted for age 4. See MPI report Stress Test Summary STAGE HR BP SpO2 Symptoms NOTES Supine 66 110/68 97 1 min post Lexiscan injection 72 120/80 98 3 min post Lexiscan injection 69 110/60 97 6 min post Lexiscan injection 73 110/70 Pt stated that he had a little chest pain, described as tightness, in the center of his chest prior to starting test. He states this is how he has felt for a few weeks now. Laying tad performed r/t inability to hold beta patricia/c 13 catapult operator recommendation. Pt reported no symptoms throughout test and left ambulatory in no acute distress. MPI Conclusion Myocardial perfusion appeared grossly normal, no ischemia or pattern of infarction
[2025-08-23] MEDS: Regadenoson 0.4 MG/5 ML SYR IVP (11:50)
== END ==
LOC: DI 00:10
PROVIDERS: PCP Nurse Practitioner Family; Visit Provider Internal Medicine Cardiovascular Disease
DX: I25.10 Atherosclerotic heart disease of native coronary artery without angina pectoris (principal); R07.9 Chest pain, unspecified
CPT/HCPCS: 78452; 93016; 93018; 93017; J2785